=== PATIENT | female | born 1940 | race Caucasian/White ===

== ENCOUNTER 2019-01-25 08:08 | Inpatient (IN) ==
--- NOTE | 2019-01-24 09:06 | XRay Report ---
HISTORY: Preop for hernia repair FINDINGS: The lungs are clear. The heart, mediastinum, rogelio and pleura are normal. IMPRESSION: Normal chest. Interpreted and Authenticated by: Henri Fajardo 01/24/19
[2019-01-24 11:41] LABS: Basophils # (Auto) 0 K/mcL (0.0-0.3); Basophils % (Auto) 0.7 % (0.0-2.0); Eosinophils # (Auto) 0.5 K/mcL (0.0-0.7); Eosinophils % (Auto) 8.2 % (0.0-7.0); Granulocytes % (Auto) 55.1 % (38.0-78.0); Hematocrit 39.8 % (36.0-48.0); Hemoglobin 13.4 g/dL (12.0-15.0); Lymphocytes # (Auto) 1.8 K/mcL (1.5-4.8); Lymphocytes % (Auto) 29.3 % (15.5-49.0); Mean Corpuscular HGB Conc 33.7 g/dL (31.0-36.0); Mean Platelet Volume 8.8 fL (7.4-10.4); Monocytes # (Auto) 0.4 K/mcL (0.1-0.9); Monocytes % (Auto) 6.7 % (1.0-12.0); Platelet Count 360 K/mcL (140-440); RBC 4.38 M/mcL (4.00-5.20); Red Cell Distribution Width 14.4 % (11.5-14.5); WBC 6.1 K/mcL (4.5-11.0)
[2019-01-24 11:51] LABS: ALT/SGPT 38 U/l (0-40); AST/SGOT 27 U/l (0-37); Albumin/Globulin Ratio 1.1 (1.0-2.3); Alkaline Phosphatase 163 U/L (39-117); Bilirubin,Total 0.3 mg/dL (0.0-1.0); Blood Urea Nitrogen 14 mg/dl (8-23); Calcium 9.2 mg/dl (8.6-10.4); Carbon Dioxide 25 mmol/L (22-30); Chloride 104 mmol/L (96-108); Globulin 3.7 gm/dL (2.2-3.7); Glomerular Filtration Rate 54; Glucose 91 mg/dL (70-105)
[2019-01-24 12:42] LABS: INR 0.9 (0.9-1.1); Prothrombin Time 12.5 sec (11.9-14.5)
[~2019-01-25 08:08] MED LIST: IPRATROPIUM/ALBUTEROL 3 ML AMPUL.NEB NEB PRN; SCOPOLAMINE 1 PATCH PATCH TOPICAL PRN
[2019-01-25] MEDS ORDERED: LEVOFLOXACIN 750 MG/150 ML BAG IV SCH (08:30)
[2019-01-25] MEDS ORDERED: fentaNYL 250 MCG/5 ML VIAL IV ONE (11:10)
[2019-01-25] MEDS ORDERED: ROPIVACAINE HCL/PF 20 ML VIAL IJ ONE (11:10)
[2019-01-25] MEDS ORDERED: LIDOCAINE HCL/PF 100 MG/5 ML SYRINGE IV ONE (11:10)
[2019-01-25] MEDS ORDERED: KETAMINE 100 MG/ML ML IV ONE (11:10)
[2019-01-25] MEDS ORDERED: ROCURONIUM 10 MG/ML ML IV ONE (11:10)
[2019-01-25] MEDS ORDERED: EPINEPHrine 1 MG/10 ML (1:10,000) SYRINGE IV ONE (11:10)
[2019-01-25] MEDS ORDERED: DEXAMETHASONE 10 MG/ML VIAL IV ONE (11:10)
[2019-01-25] MEDS ORDERED: PHENYLEPHRINE 10 MG/ML VIAL IV ONE (11:10)
[2019-01-25] MEDS ORDERED: MAGNESIUM SULFATE 2 GM/50 ML BAG IV ONE ×2 (11:10→11:43)
[2019-01-25] MEDS ORDERED: ONDANSETRON 4 MG/2 ML VIAL IV ONE (11:10)
[2019-01-25] MEDS ORDERED: PROPOFOL 200 MG/20 ML VIAL IV ONE (11:10)
[2019-01-25] MEDS ORDERED: GLYCOPYRROLATE 0.2 MG/ML VIAL IV ONE (11:10)
[2019-01-25] MEDS ORDERED: MIDAZOLAM 2 MG/2 ML VIAL IV ONE (11:10)
[2019-01-25] MEDS ORDERED: VANCOMYCIN 1,000 MG in 0.9 % SODIUM CHLORIDE 250 ML IV ONE (11:30)
[2019-01-25] MEDS ORDERED: BACITRACIN 50,000 UNIT VIAL IR ONE (11:43)
[2019-01-25] MEDS ORDERED: ACETAMINOPHEN 1,000 MG/100 ML BOTTLE IV ONE (12:55)
[2019-01-25] MEDS ORDERED: LACTATED RINGERS 250 ML IV PRN (12:55)
[2019-01-25] MEDS ORDERED: ONDANSETRON 4 MG/2 ML VIAL IV PRN (12:55)
[2019-01-25] MEDS ORDERED: IPRATROPIUM/ALBUTEROL 3 ML AMPUL.NEB NEB PRN (12:55)
[2019-01-25] MEDS ORDERED: HYDROmorphone 2 MG/ML VIAL IV PRN (12:55)
[2019-01-25] MEDS ORDERED: MEPERIDINE 25 MG/ML SYRINGE IV PRN (12:55)
[2019-01-25] MEDS ORDERED: PROMETHAZINE 25 MG/ML VIAL IV PRN ×2 (12:55→15:46)
[2019-01-25] MEDS ORDERED: BENZOCAINE/MENTHOL 1 LOZENGE PO PRN (12:55)
[2019-01-25] MEDS ORDERED: METHOCARBAMOL 1,000 MG/10 ML VIAL IV PRN (12:55)
[2019-01-25] MEDS ORDERED: LACTATED RINGERS 1,000 ML IV SCH (13:00)
--- NOTE | 2019-01-25 14:37 | Brief Operative Note ---
Date of procedure: 01/25/19 Pre-op diagnosis: major incisional hernia Post-op diagnosis: other (incisional hernia from xyphoid to pubis) Procedure: incisional hernia repair with mesh graft ,major; covering entire anterior abdominal wall bilateral separation of components from costal margin to iliac crest extensive lysis of adhesions Grafts/Implants: Yes (surgimesh ;[id number]) Anesthesia: GETA Findings: major adhesions of entire peritoneal cavity 16cm transverse fascial defect extending from xyphoid to pubis marked retraction of midline fascia bilaterally Complications: none Surgeon: Lin Medrano Estimated blood loss (cc): 100 Specimens Removed/Pathology: none sent Condition: stable Disposition: PACU
[2019-01-25] MEDS: fentaNYL 100 MCG/2 ML VIAL IV PRN ×3 (14:58→15:09)
[2019-01-25] MEDS ORDERED: ACETAMINOPHEN 1,000 MG in PREMIX 1 BAG IV SCH (15:46)
[2019-01-25] MEDS ORDERED: ACETAMINOPHEN 1,000 MG/100 ML BOTTLE IV PRN (15:49)
[2019-01-25] MEDS: 0.9 % SODIUM CHLORIDE 1,000 ML IV SCH (15:57)
[2019-01-25] MEDS: HYDROmorphone 2 MG/ML VIAL IV PRN ×2 (16:01→18:00)
[2019-01-25] MEDS: NICOTINE 21 MG PATCH TOPICAL SCH (17:38)
[2019-01-25] MEDS: METOCLOPRAMIDE 10 MG/2 ML VIAL IV SCH (17:38)
[2019-01-25] MEDS: ACETAMINOPHEN 1,000 MG/100 ML BOTTLE IV SCH (20:45)
[2019-01-25] MEDS: VANCOMYCIN 1,000 MG in 0.9 % SODIUM CHLORIDE 250 ML IV SCH (21:18)
[2019-01-25] MEDS: 0.9 % SODIUM CHLORIDE 10 ML SYRINGE IV SCH (21:22)
[2019-01-26] MEDS: HYDROmorphone 2 MG/ML VIAL IV PRN ×7 (01:41→22:38)
[2019-01-26] MEDS: LORazepam 2 MG/ML VIAL IV PRN ×2 (01:45→19:25)
[2019-01-26] MEDS: ACETAMINOPHEN 1,000 MG/100 ML BOTTLE IV SCH ×2 (02:31→11:05)
[2019-01-26] MEDS: 0.9 % SODIUM CHLORIDE 1,000 ML IV SCH ×4 (02:32→23:29)
[2019-01-26] MEDS: METOCLOPRAMIDE 10 MG/2 ML VIAL IV SCH ×5 (05:54→23:30)
[2019-01-26] MEDS: 0.9 % SODIUM CHLORIDE 10 ML SYRINGE IV SCH ×3 (05:59→20:15)
[2019-01-26] MEDS: LEVOFLOXACIN 750 MG/150 ML BAG IV SCH (09:35)
[2019-01-26] MEDS: NICOTINE 21 MG PATCH TOPICAL SCH (10:05)
[2019-01-26] MEDS ORDERED: IPRATROPIUM/ALBUTEROL 3 ML AMPUL.NEB NEB PRN (11:41)
[2019-01-26] MEDS: VANCOMYCIN 1,000 MG in 0.9 % SODIUM CHLORIDE 250 ML IV SCH ×2 (12:06→20:10)
--- NOTE | 2019-01-26 12:32 | General Surgery Progress Note ---
Subjective Patient reports: feels better, still having pain, shortness of breath, afebrile Narrative: Note initiated : 01/26/19 at 12:24 pm Service Date, if different from initiated Date: [] Patient: Jennifer Gama 78 y/o F admitted on 01/25/19 for Incisional Hernia Repair, Bilateral Seperation of . Chief Complaint: [patient is stable he still has a moderate amount of pain. He still has ineffective inspirations and a nonproductive cough. Oxygen saturations are greater than 93% on room air. Discussed his situation with the radiologist. He will do a ultrasound-guided thoracentesis to remove as much non-clotted blood as possible. Her drainage from her JPs is 260 cc.] Objective Temp Pulse Resp BP Pulse Ox 98.1 F 95 H 16 174/85 92 01/26/19 08:00 01/26/19 08:30 01/26/19 08:30 01/26/19 08:00 01/26/19 08:30 - Additional Data Intake & Output - Last 24 hours: Intake & Output 01/24/19 01/25/19 01/26/19 01/27/19 05:59 05:59 05:59 05:59 Intake Total 3900 250 Output Total 955 Balance 2945 250 Weight 202 lb 3.2 oz 210 lb - General physical appearance moderate distress, moderate pain - Eyes PERRL, normal ocular movement - ENT normal pinna, normal nares, normal mucosa, no hearing loss, no congestion - Neck no masses, no bruits, trachea midline, no lymphadenopathy, no venous distension - Respiratory normal respiratory effort, clear to auscultation, other (moderate splinting bilaterally) - Cardiovascular Cardiovascular exam: Present: normal rate and rhythm, RRR, +S1, +S2. Absent: JVD, tachycardia - Abdomen tender, surgical scars (incision looks good has good viability; DAYNE drainage is s erosanguineous; she has good active bowel sounds) - Integumentary no rash, no growths, no abnormal pigmentation - Neurologic normal coordination, normal sensation - Psychiatric oriented to time, oriented to person, oriented to place, speech is normal, memory intact - Labs 01/24/19 08:03 01/24/19 08:03 Assessment and Plan (1) Incisional hernia Status: Acute Assessment and plan: Check morning labs His monitor blood pressure closely and start medication if needed Probably will start Lovenox tomorrow Current Visit: Yes (2) COPD (chronic obstructive pulmonary disease) Status: Chronic Current Visit: No (3) Obesity (BMI 30.0-34.9) Status: Chronic Current Visit: No (4) Major depressive disorder, recurrent severe without psychotic features Status: Chronic Current Visit: No - Time Spent With Patient Total time spent is greater than 50% in coordination of care (as documented) at patient's floor/unit and/or counseling patient:
[2019-01-26 13:36] LABS: Basophils # (Auto) 0 K/mcL (0.0-0.3); Basophils % (Auto) 0.3 % (0.0-2.0); Eosinophils # (Auto) 0 K/mcL (0.0-0.7); Eosinophils % (Auto) 0 % (0.0-7.0); Granulocytes % (Auto) 84.8 % (38.0-78.0); Hematocrit 39.8 % (36.0-48.0); Hemoglobin 13.4 g/dL (12.0-15.0); Lymphocytes % (Auto) 8.3 % (15.5-49.0); Mean Cell Volume 91.8 fL (80.0-100.0); Mean Corpuscular HGB Conc 33.6 g/dL (31.0-36.0); Mean Platelet Volume 8.2 fL (7.4-10.4); Monocytes # (Auto) 0.8 K/mcL (0.1-0.9); Monocytes % (Auto) 6.6 % (1.0-12.0); Platelet Count 314 K/mcL (140-440); RBC 4.33 M/mcL (4.00-5.20); Red Cell Distribution Width 14.5 % (11.5-14.5); WBC 11.9 K/mcL (4.5-11.0)
[2019-01-26 14:35] LABS: ALT/SGPT 111 U/l (0-40); AST/SGOT 88 U/l (0-37); Albumin 3.5 gm/dL (3.2-5.2); Albumin/Globulin Ratio 1.1 (1.0-2.3); Alkaline Phosphatase 247 U/L (39-117); Bilirubin,Direct 0.9 mg/dL (0.0-0.3); Bilirubin,Total 1.3 mg/dL (0.0-1.0); Blood Urea Nitrogen 12 mg/dl (8-23); Calcium 8.6 mg/dl (8.6-10.4); Carbon Dioxide 22 mmol/L (22-30); Chloride 107 mmol/L (96-108); Globulin 3.3 gm/dL (2.2-3.7); Glomerular Filtration Rate 83; Glucose 106 mg/dL (70-105); Lactate Dehydrogenase 270 U/L (94-250); Phosphorous 2.9 mg/dL (2.7-4.5); Triglycerides 56 mg/dl (<150); Uric Acid 4.4 mg/dL (2.5-8.0)
[2019-01-26] MEDS ORDERED: METOPROLOL TARTRATE 5 MG/5 ML VIAL IV ONE (20:06)
[2019-01-26] MEDS: busPIRone 5 MG TABLET PO SCH (20:07)
[2019-01-26] MEDS: MIRTAZAPINE 15 MG TABLET PO SCH (20:07)
[2019-01-26] MEDS: DULoxetine 30 MG CAPSULE PO SCH (20:07)
[2019-01-26] MEDS: METOPROLOL TARTRATE 5 MG/5 ML VIAL IV PRN (20:14)
[2019-01-26] MEDS: FLUTICASONE/SALMETEROL 500/50 INHALER #14 INH SCH (20:15)
[2019-01-27] MEDS: HYDROmorphone 2 MG/ML VIAL IV PRN ×8 (00:58→22:55)
[2019-01-27] MEDS: LORazepam 2 MG/ML VIAL IV PRN (02:57)
[2019-01-27] MEDS: METOPROLOL TARTRATE 5 MG/5 ML VIAL IV PRN (02:57)
[2019-01-27 05:44] LABS: Basophils # (Auto) 0 K/mcL (0.0-0.3); Basophils % (Auto) 0.4 % (0.0-2.0); Eosinophils # (Auto) 0.1 K/mcL (0.0-0.7); Eosinophils % (Auto) 0.7 % (0.0-7.0); Granulocytes % (Auto) 79.9 % (38.0-78.0); Hematocrit 38.2 % (36.0-48.0); Hemoglobin 12.9 g/dL (12.0-15.0); Lymphocytes # (Auto) 1.5 K/mcL (1.5-4.8); Lymphocytes % (Auto) 12.6 % (15.5-49.0); Mean Corpuscular HGB Conc 33.7 g/dL (31.0-36.0); Mean Platelet Volume 8.3 fL (7.4-10.4); Monocytes # (Auto) 0.7 K/mcL (0.1-0.9); Monocytes % (Auto) 6.4 % (1.0-12.0); Platelet Count 341 K/mcL (140-440); RBC 4.06 M/mcL (4.00-5.20); Red Cell Distribution Width 14.5 % (11.5-14.5); WBC 11.6 K/mcL (4.5-11.0)
[2019-01-27] MEDS: METOCLOPRAMIDE 10 MG/2 ML VIAL IV SCH ×4 (05:55→23:13)
[2019-01-27] MEDS: 0.9 % SODIUM CHLORIDE 10 ML SYRINGE IV SCH ×3 (05:56→21:48)
[2019-01-27] MEDS ORDERED: LEVOTHYROXINE 50 MCG TABLET PO SCH (07:30)
[2019-01-27] MEDS: 0.9 % SODIUM CHLORIDE 1,000 ML IV SCH ×3 (08:00→23:43)
[2019-01-27] MEDS: DULoxetine 30 MG CAPSULE PO SCH ×2 (09:00→19:35)
[2019-01-27] MEDS ORDERED: ALPRAZolam 0.5 MG TABLET PO SCH (09:00)
[2019-01-27] MEDS: busPIRone 5 MG TABLET PO SCH ×2 (09:00→19:35)
[2019-01-27] MEDS: FLUTICASONE/SALMETEROL 500/50 INHALER #14 INH SCH ×2 (09:03→22:10)
[2019-01-27] MEDS: VANCOMYCIN 1,000 MG in 0.9 % SODIUM CHLORIDE 250 ML IV SCH ×2 (09:05→19:35)
[2019-01-27] MEDS: ENOXAPARIN 40 MG/0.4 ML SYRINGE SQ SCH ×2 (09:11→19:35)
[2019-01-27] MEDS: NICOTINE 21 MG PATCH TOPICAL SCH (09:17)
[2019-01-27] MEDS: LEVOFLOXACIN 750 MG/150 ML BAG IV SCH (10:54)
--- NOTE | 2019-01-27 12:00 | General Surgery Progress Note ---
Subjective Patient reports: feels better, pain is less, flatus, no bowel movement, nausea, afebrile Narrative: Note initiated : 01/27/19 at 11:57 am Service Date, if different from initiated Date: [] Patient: Jennifer Gama 78 y/o F admitted on 01/25/19 for Incisional Hernia Repair, Bilateral Seperation of . Chief Complaint: [patient feels. She still has episodes of nausea. She has had flatus. She is afebrile. White blood count 11.6, hemoglobin 12.9.] Objective Temp Pulse Resp BP Pulse Ox 98 F 98 H 20 156/80 93 01/27/19 07:20 01/27/19 08:00 01/27/19 08:00 01/27/19 07:20 01/27/19 08:00 - Additional Data Intake & Output - Last 24 hours: Intake & Output 01/25/19 01/26/19 01/27/19 01/28/19 05:59 05:59 05:59 05:59 Intake Total 3900 3230 1350 Output Total 955 1700 Balance 2945 1530 1350 Weight 202 lb 3.2 oz 210 lb 205 lb 12.8 oz - General physical appearance well developed, well nourished, no distress, moderate pain - Eyes PERRL, normal ocular movement - ENT normal pinna, normal nares, normal mucosa, no hearing loss, no congestion - Neck no masses, no bruits, trachea midline, no lymphadenopathy, no venous distension - Respiratory normal expansion, normal respiratory effort, clear to auscultation - Cardiovascular Cardiovascular exam: Present: normal rate and rhythm, RRR, +S1, +S2. Absent: JVD, tachycardia - Abdomen soft, tender (mild incisional tenderness; active bowel sounds; mild distention; DAYNE drainage is decreasing and is more serous) - Integumentary no rash, no growths, no abnormal pigmentation - Neurologic normal coordination, normal sensation - Psychiatric oriented to time, oriented to person, oriented to place, speech is normal, memory intact - Labs 01/27/19 04:05 01/26/19 12:30 Diabetes panel 01/26/19 Range/Units 12:30 Sodium 138 (133-145) mmol/L Potassium 4.3 (3.3-5.1) mmol/L Chloride 107 (96-108) mmol/L Carbon Dioxide 22 (22-30) mmol/L BUN 12 (8-23) mg/dl Creatinine 0.7 (0.6-1.1) mg/dl Glucose 106 H (70-105) mg/dL Calcium 8.6 (8.6-10.4) mg/dl AST 88 H (0-37) U/l ALT 111 H (0-40) U/l Alkaline Phosphatase 247 H (39-117) U/L Total Protein 6.8 (5.9-8.4) gm/dL Albumin 3.5 (3.2-5.2) gm/dL Triglycerides 56 (<150) mg/dl Calcium panel 01/26/19 Range/Units 12:30 Calcium 8.6 (8.6-10.4) mg/dl Phosphorus 2.9 (2.7-4.5) mg/dL Albumin 3.5 (3.2-5.2) gm/dL Pituitary panel 01/26/19 Range/Units 12:30 Sodium 138 (133-145) mmol/L Potassium 4.3 (3.3-5.1) mmol/L Chloride 107 (96-108) mmol/L Carbon Dioxide 22 (22-30) mmol/L BUN 12 (8-23) mg/dl Creatinine 0.7 (0.6-1.1) mg/dl Glucose 106 H (70-105) mg/dL Calcium 8.6 (8.6-10.4) mg/dl Adrenal panel 01/26/19 Range/Units 12:30 Sodium 138 (133-145) mmol/L Potassium 4.3 (3.3-5.1) mmol/L Chloride 107 (96-108) mmol/L Carbon Dioxide 22 (22-30) mmol/L BUN 12 (8-23) mg/dl Creatinine 0.7 (0.6-1.1) mg/dl Glucose 106 H (70-105) mg/dL Calcium 8.6 (8.6-10.4) mg/dl Total Bilirubin 1.3 H (0.0-1.0) mg/dL AST 88 H (0-37) U/l ALT 111 H (0-40) U/l Alkaline Phosphatase 247 H (39-117) U/L Total Protein 6.8 (5.9-8.4) gm/dL Albumin 3.5 (3.2-5.2) gm/dL Assessment and Plan (1) Incisional hernia Status: Acute Assessment and plan: Decrease IV to 50 cc/h Delay advancing diet until she has more intestinal activity Current Visit: Yes (2) COPD (chronic obstructive pulmonary disease) Status: Chronic Current Visit: No (3) Obesity (BMI 30.0-34.9) Status: Chronic Current Visit: No (4) Major depressive disorder, recurrent severe without psychotic features Status: Chronic Current Visit: No - Time Spent With Patient Total time spent is greater than 50% in coordination of care (as documented) at patient's floor/unit and/or counseling patient:
[2019-01-27] MEDS ORDERED: 0.9 % SODIUM CHLORIDE 250 ML IV SCH (12:15)
[2019-01-27] MEDS: MIRTAZAPINE 15 MG TABLET PO SCH (19:35)
[2019-01-28] MEDS ORDERED: FUROSEMIDE 20 MG/2 ML VIAL IV STA ×2 (02:56→03:45)
[2019-01-28] MEDS ORDERED: FUROSEMIDE 20 MG/2 ML VIAL IV ONE (02:56)
[2019-01-28 03:15] LABS: Basophils # (Auto) 0 K/mcL (0.0-0.3); Basophils % (Auto) 0.2 % (0.0-2.0); Eosinophils # (Auto) 0.2 K/mcL (0.0-0.7); Eosinophils % (Auto) 1.1 % (0.0-7.0); Granulocytes % (Auto) 74.9 % (38.0-78.0); Hematocrit 44.8 % (36.0-48.0); Hemoglobin 14.6 g/dL (12.0-15.0); Lymphocytes % (Auto) 22.7 % (15.5-49.0); Mean Cell Volume 92.4 fL (80.0-100.0); Mean Corpuscular HGB Conc 32.6 g/dL (31.0-36.0); Mean Platelet Volume 8.4 fL (7.4-10.4); Monocytes # (Auto) 0.2 K/mcL (0.1-0.9); Monocytes % (Auto) 1.1 % (1.0-12.0); Platelet Count 442 K/mcL (140-440); RBC 4.85 M/mcL (4.00-5.20); Red Cell Distribution Width 14.6 % (11.5-14.5); WBC 17.7 K/mcL (4.5-11.0)
[2019-01-28 03:38] LABS: ALT/SGPT 85 U/l (0-40); AST/SGOT 67 U/l (0-37); Albumin 3.5 gm/dL (3.2-5.2); Albumin/Globulin Ratio 0.9 (1.0-2.3); Alkaline Phosphatase 371 U/L (39-117); Bilirubin,Total 1.2 mg/dL (0.0-1.0); Blood Urea Nitrogen 15 mg/dl (8-23); Calcium 9.1 mg/dl (8.6-10.4); Carbon Dioxide 20 mmol/L (22-30); Chloride 105 mmol/L (96-108); Glomerular Filtration Rate 61; Glucose 123 mg/dL (70-105)
[2019-01-28] MEDS ORDERED: HEPARIN/NS 500 ML IV ONE (03:44)
[2019-01-28] MEDS ORDERED: LORazepam 2 MG/ML VIAL IV PRN (03:45)
[2019-01-28] MEDS ORDERED: METOPROLOL TARTRATE 5 MG/5 ML VIAL IV PRN (03:45)
[2019-01-28] MEDS ORDERED: IPRATROPIUM/ALBUTEROL 3 ML AMPUL.NEB NEB PRN (03:45)
[2019-01-28] MEDS ORDERED: PROMETHAZINE 25 MG/ML VIAL IV PRN (03:45)
[2019-01-28] MEDS ORDERED: FUROSEMIDE 40 MG/4 ML VIAL IV ONE ×3 (03:45→11:00)
[2019-01-28] MEDS ORDERED: PROPOFOL 100 ML IV ONE (04:12)
[2019-01-28] MEDS ORDERED: HEPARIN/NS 500 ML IV SCH (04:15)
[2019-01-28] MEDS ORDERED: PROPOFOL 100 ML IV SCH (04:15)
--- NOTE | 2019-01-28 04:29 | Procedure Note ---
Procedures - Arterial Line Consent obtained: written consent Time out performed: Yes Size (Gauge): 20 Technique used: guide wire technique Post-Procedure: dry sterile dressing placed, easily flushed, waveform correlation Patient tolerated procedure: well Complications: none - Intubation Sedative: other (propofol) Mg given: 100 Paralytic: Succinylcholine ETT: ETCO2, BBS Laryngoscope: 1 Assist device used: glide Vocal Cord View: 1 ET tube size: 7 ET tube uncuffed: No Tube secured depth (cm): 22 Tube secured location: lips Tube placement confirmation: visualized tube passing through cords, equal breath sounds bilaterally, no breath sounds over epigastrium, confirmation by capnometry Patient tolerated procedure: well Intubation complications: none
[2019-01-28] MEDS ORDERED: 0.9 % SODIUM CHLORIDE 250 ML IV SCH (04:30)
--- NOTE | 2019-01-28 04:33 | Internal Medicine Consult Note ---
Medical - CN: [facility] - Data of Consult Consult date: 01/28/19 Primary Care Provider: Shane Portillo - Consult Narrative History of present illness: Ms. Gama is a 78 year old F On the for repair of major incisional hernia with the subsequent repair and lysis of extensive abdominal adhesions. Hospital course remarkable for anxiety with a history of the same, she had episodes of hypertension since surgery. Early on the patient came somewhat agitated and while nurse was obtaining as needed anxiolytic and pain medication patient heard calling out for help and reported being short of breath. No specific complaints of any chest pain. She appeared diaphoretic cool and clammy respiratory rate of 30 and O2 sat of 75% on 3 L of oxygen. Code white initiated. Dr. Medrano contacted, subsequently anesthesia. ABG with pH of 7.1 and a CO2 of 72 with an PaO2 of 49. Patient was intubated anesthesia. She did become hypotensive post procedure with subsequent hypertension and drop in blood pressure again. Chest x-ray with pulmonary edema. Positive fluid balance and increased weight. Preop echo no significant abnormalities. EKG with some depression in the v5-v6 somewhat more pronounced than previous EKG. Per discussion with family members she has no history of heart failure or CAD. Her blood pressures are okay at home but her heart rate typically runs between 80-100 significant anxiety. She does not wear any home oxygen for her COPD. She does use a CPAP machine at night for obstructive sleep apnea. Colon cancer several years ago had surgery and subsequent PE. She was on warfarin for what sounds to be about a year. Unable to obtain review of systems given patient's sedation CC: Lin Medrano MD Medical - CN: [facility] Medical history: Medical History (Last Reviewed 12/29/18 @ 08:06 by Elizabeth Barreto [facility]) Colon cancer (Chronic) Gastroenteritis (Acute) Acute exacerbation of chronic obstructive airways disease (Acute) Asthma with exacerbation (Acute) Major depressive disorder, recurrent severe without psychotic features (Chronic) Generalized anxiety disorder (Chronic) Panic disorder (Chronic) Dysthymia (Chronic) Fatigue (Chronic) Sleep apnea (Chronic) Hypothyroidism (Chronic) Chronic asthma (Chronic) COPD (chronic obstructive pulmonary disease) (Chronic) Benign brain tumor (Chronic) Chronic anticoagulation (Chronic) PE (pulmonary thromboembolism) (Chronic) Past Surgical History (Last Reviewed 12/29/18 @ 08:06 by Elizabeth Barreto CMA) History of cholecystectomy (Chronic) History of ear surgery (Chronic) History of surgery (Chronic 2005) History of tonsillectomy and adenoidectomy (Chronic) Family History (Last Reviewed 12/29/18 @ 08:06 by Elizabeth Barreto CMA) Mother Congestive heart failure Arthritis Depression Father Diabetes mellitus Amputation leg, bilat Sister Heart attack Arthritis Medical - CN: Meds Home Medications Medication Instructions Recorded Confirmed Type albuterol sulfate 90 mcg/actuation 1 puff INHALATION Q6H PRN #18 g 08/24/17 Rx aerosol inhaler ipratropium-albuterol 0.5 mg-3 3 ml INHALATION Q6HP PRN #30 08/30/17 01/25/19 Rx mg(2.5 mg base)/3 mL nebulization ampul.neb soln alprazolam 1 mg tablet 1 mg PO DAILY #90 tab 08/15/18 01/25/19 Rx aripiprazole 2 mg tablet 1 mg PO QHS #90 tab 10/04/18 01/25/19 Rx fluticasone 500 mcg-salmeterol 50 1 inh INHALATION BID #60 each 11/29/18 01/25/19 Rx mcg/dose blistr powdr for inhalation buspirone 5 mg tablet 2.5 mg PO BID #90 tab 12/05/18 01/25/19 Rx duloxetine 30 mg capsule,delayed 30 mg PO BID #180 cap 12/13/18 01/25/19 Rx release mirtazapine 30 mg tablet 15 mg PO QHS #30 tab 01/05/19 01/25/19 Rx Levothyroxine Sodium [Synthroid] 50 mcg PO DAILY 01/24/19 01/25/19 History Nicotine Polacrilex [Nicorette] 2 mg BC DAILY 01/24/19 01/25/19 History Allergies Allergy/AdvReac Type Severity Reaction Status Date / Time morphine AdvReac Severe Hallucinati Verified 01/27/19 10:16 ng carbamazepine [From Tegretol] AdvReac Mild Itching Verified 01/24/19 08:11 phenytoin [From Dilantin] AdvReac Mild Itching Verified 01/24/19 08:11 Medical - CN: Exam - Constitutional Vitals: Temp Pulse Resp BP Pulse Ox 98.3 F 107 H 20 195/84 92 01/27/19 22:52 01/27/19 22:52 01/27/19 22:52 01/27/19 22:52 01/27/19 22:52 Exam: General: Sedated and ventilated, no acute Distress Eyes/N/T: Pupils pinpoint and equal and sluggish Head/Neck: neck supple, normocephalic atraumatic CV: Mildly tacky but regular, No murmurs, normal s1/s2 Pulm: Mild b/l rhonchi, occasional wheeze Abd: soft, nontender, +BS x4 Ext: no clubbing/cyanosis, 1+ b/l LE edema Neuro: Sedated including paralytic given and intubated, unable to gather thorough neuro exam Skin: warm/dry Medical - CN: Result - Labs CBC & Chem 7: 01/28/19 02:50 01/28/19 02:50 Labs: Short CBC 01/27/19 01/28/19 Range/Units 04:05 02:50 WBC 11.6 H 17.7 H (4.5-11.0) K/mcL Hgb 12.9 14.6 (12.0-15.0) g/dL Hct 38.2 44.8 (36.0-48.0) % Plt Count 341 442 H (140-440) K/mcL BMP 01/28/19 02:50 Sodium 139 Potassium 4.3 Chloride 105 Carbon Dioxide 20 L BUN 15 Creatinine 0.9 Glucose 123 H Calcium 9.1 Liver Function 01/28/19 Range/Units 02:50 Total Bilirubin 1.2 H (0.0-1.0) mg/dL AST 67 H (0-37) U/l ALT 85 H (0-40) U/l Alkaline Phosphatase 371 H (39-117) U/L Albumin 3.5 (3.2-5.2) gm/dL - Impressions Chest x-ray with pulmonary edema. ABG with respiratory acidosis and hypoxia Medical - CN: A/P - Narrative A/P Narrative: A: *Acute hypoxic/hypercapnic respiratory failure: in setting of underlying COPD & KANU with volume overload. consider aspiration/PNA vs ARDS -EKG with some ST depression v5-6 more pronounced than prior EKG, Trop negative *Volume overload: pt up 3kg weight but i/o's show 5kg net -Preop echo with no significant abnormalities -elevated BNP *Hypotension: post RSI and then again with propofol *HTN post-op: likely 2/2 pain/anxiety and could be contributor to pulmonary ed jair *COPD (not on home oxygen): *KANU with CPAP: *Obesity: *Anxiety with panic attacks/depression: *Heart rate at home per family runs 80-100 *h/o colon cancer with subsequent surgery and postoperative PE: Was on warfarin for a year *Incisional hernia: Status post repair with lysis of adhesions (01/25) * P: -vent mngmt -f/u CXR -IV lasix -wean off levophed -i/o's, weights -israel/prn nebs -cont abx levaquin/vanco per surg -check man diff and PCT -f/u EKG -may need repeat echo -ppx: lovenox/h2
--- NOTE | 2019-01-28 04:36 | General Surgery Progress Note ---
Subjective Patient reports: other Narrative: Note initiated : 01/28/19 at 4:34 am Service Date, if different from initiated Date: [] Patient: Jennifer Gama 78 y/o F admitted on 01/25/19 for Incisional Hernia Repair, Bilateral Seperation of . Chief Complaint: [patient developed acute respiratory distress about 2 hours ago. I was contacted home and came in emergently. She is having extreme shortness of breath with labored respirations. She is agitated, diaphoretic, and hypoxic with oxygen saturations about 80% on nonrebreather mask. Patient is felt to be in significant respiratory failure with combination of exacerbation of COPD as well as pulmonary edema. Chest x-ray confirmed pulmonary edema. She will be transferred to the ICU and intubated emergently for ventilatory support. Cardiac enzymes will also be ordered. Objective Temp Pulse Resp BP Pulse Ox 98.3 F 107 H 20 195/84 92 01/27/19 22:52 01/27/19 22:52 01/27/19 22:52 01/27/19 22:52 01/27/19 22:52 - Additional Data Intake & Output - Last 24 hours: Intake & Output 01/25/19 01/26/19 01/27/19 01/28/19 05:59 05:59 05:59 05:59 Intake Total 3900 3230 1950 Output Total 955 1700 1010 Balance 2945 1530 940 Weight 202 lb 3.2 oz 210 lb 205 lb 12.8 oz 208 lb - General physical appearance severe distress - Eyes PERRL, normal ocular movement - Respiratory other (poor ventilation bilaterally with coarse wheezes and coarse tubular breath sounds with wet rales bilaterally; mild retraction of intercostal noted) - Cardiovascular Cardiovascular exam: Present: tachycardia ( heart rate 150 blood pressure 220/110) - Abdomen tender (mild abdominal tenderness with moderate distention; hypoactive bowel sounds) - Neurologic disoriented, confused - Labs 01/29/19 04:22 02/01/19 04:40 Diabetes panel 01/28/19 Range/Units 02:50 Sodium 139 (133-145) mmol/L Potassium 4.3 (3.3-5.1) mmol/L Chloride 105 (96-108) mmol/L Carbon Dioxide 20 L (22-30) mmol/L BUN 15 (8-23) mg/dl Creatinine 0.9 (0.6-1.1) mg/dl Glucose 123 H (70-105) mg/dL Calcium 9.1 (8.6-10.4) mg/dl AST 67 H (0-37) U/l ALT 85 H (0-40) U/l Alkaline Phosphatase 371 H (39-117) U/L Total Protein 7.5 (5.9-8.4) gm/dL Albumin 3.5 (3.2-5.2) gm/dL Calcium panel 01/28/19 Range/Units 02:50 Calcium 9.1 (8.6-10.4) mg/dl Albumin 3.5 (3.2-5.2) gm/dL Pituitary panel 01/28/19 Range/Units 02:50 Sodium 139 (133-145) mmol/L Potassium 4.3 (3.3-5.1) mmol/L Chloride 105 (96-108) mmol/L Carbon Dioxide 20 L (22-30) mmol/L BUN 15 (8-23) mg/dl Creatinine 0.9 (0.6-1.1) mg/dl Glucose 123 H (70-105) mg/dL Calcium 9.1 (8.6-10.4) mg/dl Adrenal panel 01/28/19 Range/Units 02:50 Sodium 139 (133-145) mmol/L Potassium 4.3 (3.3-5.1) mmol/L Chloride 105 (96-108) mmol/L Carbon Dioxide 20 L (22-30) mmol/L BUN 15 (8-23) mg/dl Creatinine 0.9 (0.6-1.1) mg/dl Glucose 123 H (70-105) mg/dL Calcium 9.1 (8.6-10.4) mg/dl Total Bilirubin 1.2 H (0.0-1.0) mg/dL AST 67 H (0-37) U/l ALT 85 H (0-40) U/l Alkaline Phosphatase 371 H (39-117) U/L Total Protein 7.5 (5.9-8.4) gm/dL Albumin 3.5 (3.2-5.2) gm/dL Assessment and Plan (1) Incisional hernia Status: Acute Assessment and plan: Decrease IV to 50 cc/h Delay advancing diet until she has more intestinal activity Current Visit: Yes (2) COPD (chronic obstructive pulmonary disease) Status: Chronic Current Visit: No (3) Obesity (BMI 30.0-34.9) Status: Chronic Current Visit: No (4) Major depressive disorder, recurrent severe without psychotic features Status: Chronic Current Visit: No (5) Acute exacerbation of chronic obstructive airways disease Status: Acute Assessment and plan: transfer to icu for intubation lasix 20 mg IV stat stat CXR DUONEB Q6H CXR IN A.M. TROPONIN STAT ECG STAT HOSPITALIST CONSULT Current Visit: No - Time Spent With Patient Total time spent is greater than 50% in coordination of care (as documented) at patient's floor/unit and/or counseling patient:
[2019-01-28] MEDS ORDERED: NOREPINEPHRINE BITARTRATE 4 MG/4 ML VIAL IV ONE (05:06)
[2019-01-28 05:51] LABS: Band Neutrophils % 2 % (0-10); Lymphocytes % 23 % (15-49); Monocytes % (Manual) 4 % (1-12); Platelet Estimate INCREASED (NORMAL); RBC Morphology NORMAL (NORMAL); Segmented Neutrophils % 71 % (38-78)
[2019-01-28] MEDS: NOREPINEPHRINE BITARTRATE 16 MG in 0.9 % SODIUM CHLORIDE 234 ML IV SCH (05:55)
[2019-01-28] MEDS: 0.9 % SODIUM CHLORIDE 1,000 ML IV SCH ×4 (06:53→22:41)
[2019-01-28] MEDS: 0.9 % SODIUM CHLORIDE 10 ML SYRINGE IV SCH ×3 (06:56→23:24)
[2019-01-28] MEDS ORDERED: IPRATROPIUM/ALBUTEROL 3 ML AMPUL.NEB NEB ONE (07:01)
[2019-01-28] MEDS ORDERED: BUDESONIDE 0.5 MG/2 ML AMPUL.NEB NEB ONE (07:01)
[2019-01-28] MEDS: IPRATROPIUM/ALBUTEROL 3 ML AMPUL.NEB NEB SCH ×3 (07:02→19:46)
[2019-01-28] MEDS: BUDESONIDE 0.5 MG/2 ML AMPUL.NEB NEB SCH ×2 (07:03→19:46)
[2019-01-28] MEDS ORDERED: METOCLOPRAMIDE 10 MG/2 ML VIAL ONE (07:09)
[2019-01-28] MEDS: METOCLOPRAMIDE 10 MG/2 ML VIAL IV SCH ×3 (07:18→18:28)
[2019-01-28] MEDS: PROPOFOL 1,000 MG in PREMIX 1 BAG IV SCH (07:26)
[2019-01-28] MEDS ORDERED: LEVOTHYROXINE 50 MCG TABLET PO SCH (07:30)
[2019-01-28] MEDS ORDERED: ESOMEPRAZOLE 40 MG VIAL IV SCH (07:30)
--- NOTE | 2019-01-28 08:56 | XRay Report ---
HISTORY: Short of breath FINDINGS: There is a severe diffuse widespread alveolar infiltrate throughout the right lung with the greatest consolidation in the upper two thirds. There is moderate generalized alveolar infiltrate throughout the left lung. There is relative sparing of the right base. These are new finding since 01/24/19. Heart size is within normal limits but larger today than it was previously. Some of the apparent cardiomegaly is due to portable technique. There is no pleural effusion. No mass is seen. There are multiple overlying artifacts. IMPRESSION: New onset severe widespread bilateral alveolar opacities. This could be pulmonary edema, drug or transfusion reaction, severe aspiration or pneumonia Interpreted and Authenticated by: Henri Fajardo 01/28/19
--- NOTE | 2019-01-28 08:58 | XRay Report ---
HISTORY: Intubated Endotracheal tube has been inserted. The tip is approximately 6 cm above the mook. There is no pneumothorax or widening of the mediastinum. Patient still has widespread bilateral alveolar infiltrates with the greatest involvement in the upper two thirds of the right lung. The infiltrates are less severe than they were at 2:49 AM. The lung volumes are now larger following intubation. The heart size appears normal. IMPRESSION: No complication following intubation. Widespread alveolar infiltrates which are less severe Interpreted and Authenticated by: Henri Fajardo 01/28/19
[2019-01-28] MEDS ORDERED: FLUTICASONE/SALMETEROL 500/50 INHALER #14 INH SCH (09:00)
--- NOTE | 2019-01-28 09:00 | XRay Report ---
HISTORY: Nasogastric tube insertion. FINDINGS: The study is performed at 5:09 AM. Endotracheal tube is 5 cm above the mook. A nasogastric tube passes through the esophagus into the upper fundus of the stomach. Patient still has widespread alveolar infiltrates, right worse than left. There is no widening of the mediastinum, pleural effusion or pneumothorax. The right costophrenic sulcus is outside of the field of view. IMPRESSION: Well-positioned support tubes Persistent widespread alveolar infiltrates or edema Interpreted and Authenticated by: Henri Fajardo 01/28/19
--- NOTE | 2019-01-28 09:02 | XRay Report ---
HISTORY: Follow-up infiltrates FINDINGS: Study was performed at 8:36 AM. There is no pneumothorax or pleural effusion. The endotracheal and nasogastric tubes remain well-positioned. There is no widening of the mediastinum. There are still widespread alveolar infiltrates in both lungs. These have improved since 2:49 AM on the same date. The heart size appears normal. IMPRESSION: Improving widespread bilateral infiltrates No pneumothorax Interpreted and Authenticated by: Henri Fajardo 01/28/19
[2019-01-28] MEDS ORDERED: PROPOFOL 200 MG/20 ML VIAL IV ONE (10:15)
[2019-01-28] MEDS ORDERED: SUCCINYLCHOLINE 20 MG/ML ML IV ONE (10:15)
[2019-01-28] MEDS: VANCOMYCIN 1,000 MG in 0.9 % SODIUM CHLORIDE 250 ML IV SCH ×2 (10:16→20:46)
[2019-01-28] MEDS: ALPRAZolam 0.5 MG TABLET PO SCH (10:18)
[2019-01-28] MEDS: DEXMEDETOMIDINE HCL 400 MCG/100 ML BAG IV SCH ×2 (11:11→20:40)
[2019-01-28] MEDS: FAMOTIDINE/PF 20 MG/2 ML VIAL IV SCH ×2 (11:12→20:46)
[2019-01-28] MEDS: ENOXAPARIN 40 MG/0.4 ML SYRINGE SQ SCH ×2 (11:12→21:00)
--- NOTE | 2019-01-28 11:14 | General Surgery Progress Note ---
Subjective Patient reports: afebrile Narrative: Note initiated : 01/28/19 at 11:09 am Service Date, if different from initiated Date: [] Patient: Jennifer Gama 78 y/o F admitted on 01/25/19 for Incisional Hernia Repair, Bilateral Seperation of . Chief Complaint: Patient has gradually improved over the last few hours. She is still on low-dose levo fed with blood pressure 116/55. Heart rate is 96 and regular. Her FiO2 is 70% and blood gases revealed pH 7.29, PCO2 25, PO2 117. Chest x-ray is much improved with decrease in central venous infiltrate and alveolar infiltrate. Her proBNP was 1505. Pro-calcitonin was 0.21. Potassium is 4.3. She has minimal output through her ET tube but there was enough for culture and sensitivity . Her urine output is gradually increasing.] Objective Temp Pulse Resp BP Pulse Ox 98.3 F 96 H 20 116/56 100 01/27/19 22:52 01/28/19 08:50 01/28/19 09:50 01/28/19 08:31 01/28/19 09:50 - Additional Data Intake & Output - Last 24 hours: Intake & Output 01/26/19 01/27/19 01/28/19 01/29/19 05:59 05:59 05:59 05:59 Intake Total 3900 3230 1950 47 Output Total 955 1700 2160 105 Balance 2945 1530 -210 -58 Weight 210 lb 205 lb 12.8 oz 208 lb - General physical appearance other (patient is intubated and sedated but does respond to simple commands) - Eyes PERRL, normal ocular movement - Neck no venous distension - Respiratory other (few scattered coarse tubular breath sounds but significant improvement in aeration in significant decrease in coarse wheezes) - Cardiovascular Cardiovascular exam: Present: +S1, +S2, tachycardia - Abdomen distended (jared distended but with good active bowel sounds; incision looks good; DAYNE drainage is serous) - Integumentary no rash, no growths, no abnormal pigmentation - Labs 01/28/19 02:50 01/28/19 02:50 Diabetes panel 01/28/19 Range/Units 02:50 Sodium 139 (133-145) mmol/L Potassium 4.3 (3.3-5.1) mmol/L Chloride 105 (96-108) mmol/L Carbon Dioxide 20 L (22-30) mmol/L BUN 15 (8-23) mg/dl Creatinine 0.9 (0.6-1.1) mg/dl Glucose 123 H (70-105) mg/dL Calcium 9.1 (8.6-10.4) mg/dl AST 67 H (0-37) U/l ALT 85 H (0-40) U/l Alkaline Phosphatase 371 H (39-117) U/L Total Protein 7.5 (5.9-8.4) gm/dL Albumin 3.5 (3.2-5.2) gm/dL Calcium panel 01/28/19 Range/Units 02:50 Calcium 9.1 (8.6-10.4) mg/dl Albumin 3.5 (3.2-5.2) gm/dL Pituitary panel 01/28/19 Range/Units 02:50 Sodium 139 (133-145) mmol/L Potassium 4.3 (3.3-5.1) mmol/L Chloride 105 (96-108) mmol/L Carbon Dioxide 20 L (22-30) mmol/L BUN 15 (8-23) mg/dl Creatinine 0.9 (0.6-1.1) mg/dl Glucose 123 H (70-105) mg/dL Calcium 9.1 (8.6-10.4) mg/dl Adrenal panel 01/28/19 Range/Units 02:50 Sodium 139 (133-145) mmol/L Potassium 4.3 (3.3-5.1) mmol/L Chloride 105 (96-108) mmol/L Carbon Dioxide 20 L (22-30) mmol/L BUN 15 (8-23) mg/dl Creatinine 0.9 (0.6-1.1) mg/dl Glucose 123 H (70-105) mg/dL Calcium 9.1 (8.6-10.4) mg/dl Total Bilirubin 1.2 H (0.0-1.0) mg/dL AST 67 H (0-37) U/l ALT 85 H (0-40) U/l Alkaline Phosphatase 371 H (39-117) U/L Total Protein 7.5 (5.9-8.4) gm/dL Albumin 3.5 (3.2-5.2) gm/dL Assessment and Plan (1) Incisional hernia Status: Acute Assessment and plan: Decrease IV to 50 cc/h Delay advancing diet until she has more intestinal activity Current Visit: Yes (2) COPD (chronic obstructive pulmonary disease) Status: Chronic Assessment and plan: Continue ventilatory support Continue Pulmicort and nebulizer therapy Continue Lasix diuresis Follow-up BNP Current Visit: No (3) Obesity (BMI 30.0-34.9) Status: Chronic Current Visit: No (4) Major depressive disorder, recurrent severe without psychotic features Status: Chronic Current Visit: No (5) Acute exacerbation of chronic obstructive airways disease Status: Acute Assessment and plan: transfer to icu for intubation lasix 20 mg IV stat stat CXR DUONEB Q6H CXR IN A.M. TROPONIN STAT ECG STAT HOSPITALIST CONSULT Current Visit: No - Time Spent With Patient Total time spent is greater than 50% in coordination of care (as documented) at patient's floor/unit and/or counseling patient:
[2019-01-28] MEDS: LEVOFLOXACIN 750 MG/150 ML BAG IV SCH (11:37)
[2019-01-28] MEDS: NICOTINE 21 MG PATCH TOPICAL SCH (11:39)
[2019-01-28] MEDS: HYDROmorphone 2 MG/ML VIAL IV PRN ×3 (12:49→19:07)
[2019-01-28] MEDS: CHLORHEXIDINE GLUCONATE 1 ML ORAL.SOL SWABMOUTH SCH ×2 (13:52→20:47)
[2019-01-28] MEDS: FUROSEMIDE 40 MG/4 ML VIAL IV SCH (16:14)
[2019-01-28] MEDS ORDERED: ALBUMIN HUMAN 12.5 GM/50 ML BAG IV ONE (16:36)
[2019-01-28] MEDS: 0.9 % SODIUM CHLORIDE 250 ML IV SCH (16:48)
[2019-01-28] MEDS: HYDROCORTISONE SOD SUCC 100 MG VIAL IV SCH ×2 (17:48→23:29)
[2019-01-28] MEDS ORDERED: MIRTAZAPINE 15 MG TABLET PO SCH (21:00)
[2019-01-29] MEDS: HYDROmorphone 2 MG/ML VIAL IV PRN ×6 (00:08→23:57)
[2019-01-29] MEDS: METOCLOPRAMIDE 10 MG/2 ML VIAL IV SCH ×5 (00:10→23:54)
[2019-01-29] MEDS: IPRATROPIUM/ALBUTEROL 3 ML AMPUL.NEB NEB SCH ×4 (00:58→19:34)
[2019-01-29] MEDS: DEXMEDETOMIDINE HCL 400 MCG/100 ML BAG IV SCH ×2 (03:37→08:09)
[2019-01-29] MEDS: 0.9 % SODIUM CHLORIDE 1,000 ML IV SCH ×5 (04:29→22:49)
[2019-01-29] MEDS: NOREPINEPHRINE BITARTRATE 16 MG in 0.9 % SODIUM CHLORIDE 234 ML IV SCH (04:30)
[2019-01-29] MEDS: 0.9 % SODIUM CHLORIDE 250 ML IV SCH ×2 (04:32→17:38)
[2019-01-29] MEDS: 0.9 % SODIUM CHLORIDE 10 ML SYRINGE IV SCH ×3 (05:34→21:34)
[2019-01-29] MEDS: HYDROCORTISONE SOD SUCC 100 MG VIAL IV SCH (05:37)
[2019-01-29 05:48] LABS: Basophils # (Auto) 0 K/mcL (0.0-0.3); Basophils % (Auto) 0.2 % (0.0-2.0); Eosinophils # (Auto) 0 K/mcL (0.0-0.7); Eosinophils % (Auto) 0 % (0.0-7.0); Granulocytes % (Auto) 83.6 % (38.0-78.0); Hematocrit 30.8 % (36.0-48.0); Hemoglobin 10.8 g/dL (12.0-15.0); Lymphocytes # (Auto) 0.6 K/mcL (1.5-4.8); Lymphocytes % (Auto) 11.8 % (15.5-49.0); Mean Cell Volume 94.3 fL (80.0-100.0); Mean Corpuscular HGB Conc 35.2 g/dL (31.0-36.0); Mean Platelet Volume 8.3 fL (7.4-10.4); Monocytes # (Auto) 0.2 K/mcL (0.1-0.9); Monocytes % (Auto) 4.4 % (1.0-12.0); Platelet Count 254 K/mcL (140-440); RBC 3.26 M/mcL (4.00-5.20); Red Cell Distribution Width 13.9 % (11.5-14.5)
[2019-01-29 06:07] LABS: ALT/SGPT 45 U/l (0-40); AST/SGOT 30 U/l (0-37); Albumin 2.7 gm/dL (3.2-5.2); Albumin/Globulin Ratio 0.9 (1.0-2.3); Alkaline Phosphatase 220 U/L (39-117); Bilirubin,Direct < 0.2 mg/dL (0.0-0.3); Bilirubin,Total 0.5 mg/dL (0.0-1.0); Blood Urea Nitrogen 24 mg/dl (8-23); Calcium 7.8 mg/dl (8.6-10.4); Carbon Dioxide 22 mmol/L (22-30); Chloride 107 mmol/L (96-108); Glomerular Filtration Rate 48; Glucose 145 mg/dL (70-105); Lactate Dehydrogenase 225 U/L (94-250); Phosphorous 2.9 mg/dL (2.7-4.5); Triglycerides 117 mg/dl (<150); Uric Acid 8.1 mg/dL (2.5-8.0)
[2019-01-29] MEDS: PROPOFOL 1,000 MG in PREMIX 1 BAG IV SCH (06:37)
[2019-01-29] MEDS: BUDESONIDE 0.5 MG/2 ML AMPUL.NEB NEB SCH ×3 (06:57→19:35)
[2019-01-29] MEDS: FUROSEMIDE 40 MG/4 ML VIAL IV SCH ×2 (07:58→16:42)
--- NOTE | 2019-01-29 08:34 | Internal Med Progress Note ---
Medical - PN: Subj Patient information: Note initiated : 01/29/19 at 8:28 am Service Date, if different from initiated Date: [] Patient: Jennifer Gama a 78 y/o F admitted on 01/25/19 for Incisional Hernia Repair, Bilateral Seperation of . Chief Complaint: [] Interval history: Ms. Gama is a 78 year old F On the for repair of major incisional hernia with the subsequent repair and lysis of extensive abdominal adhesions. Hospital course remarkable for anxiety with a history of the same, she had episodes of hypertension since surgery. Early on the patient came somewhat agitated and while nurse was obtaining as needed anxiolytic and pain medication patient heard calling out for help and reported being short of breath. No specific complaints of any chest pain. She appeared diaphoretic cool and clammy respiratory rate of 30 and O2 sat of 75% on 3 L of oxygen. Edel smith initiated. Dr. Medrano contacted, subsequently anesthesia. ABG with pH of 7.1 and a CO2 of 72 with an PaO2 of 49. Patient was intubated anesthesia. She did become hypotensive post procedure with subsequent hypertension and drop in blood pressure again. Chest x-ray with pulmonary edema. Positive fluid balance and increased weight. Preop echo no significant abnormalities. EKG with some depression in the v5-v6 somewhat more pronounced than previous EKG. Per discussion with family members she has no history of heart failure or CAD. Her blood pressures are okay at home but her heart rate typically runs between 8 0-100 significant anxiety. She does not wear any home oxygen for her COPD. She does use a CPAP machine at night for obstructive sleep apnea. Colon cancer several years ago had surgery and subsequent PE. She was on warfarin for what sounds to be about a year. 01/29 No events overnight. Patient awake on the vent this morning on weaning trial. Good weaning parameters and patient following commands. Plan for extubation this morning. - Constitutional Vitals: Vital Signs Temp Pulse Resp BP Pulse Ox 97.5 F 72 16 108/55 95 01/29/19 07:01 01/29/19 07:24 01/29/19 07:24 01/29/19 07:22 01/29/19 07:45 Period Temp Pulse Resp BP Sys/Knapp Pulse Ox Last 24 Hr 97 F-98.7 F 69-104 16-27 95-175/49-119 93-100 Intake and Output 01/28/19 01/29/19 01/29/19 21:59 05:59 13:59 Intake Total 1572 1106 1333 Output Total 2210 709 195 Balance -375 794 1398 Weight 91.49 kg Intake & Output: Intake & Output 01/28/19 01/29/19 01/29/19 21:59 05:59 13:59 Intake Total 1572 1106 1333 Output Total 2210 709 195 Balance -936 794 4929 Weight 91.49 kg Intake: IV 1572 1106 1333 Sodium Chloride 0.9% 1,000 ml @ 9168 133 5595 125 mls/hr IV .Q8H [facility] Rx#: [id number] PRECEDEX 400 MCG/100 ML 59 66 33 DEXTROSE 400 mcg In 100 ml @ 0. 2 MCG/KG/HR 4.717 mls/hr IV . [id number] [facility] Rx#:[id number] Levophed 16 mg In Sodium 163 63 Chloride 0.9% 234 ml @ 10 MCG/ MIN 9.375 mls/hr IV Q24H [facility] Rx #:[id number] Diprivan 100 ml @ 0 mls/hr IV . 50 [facility] Rx#:[id number] Vancomycin 1,000 mg In Sodium 250 250 Chloride 0.9% 250 ml @ 250 mls/ hr IV Q12H [facility] Rx#:[id number] Output: Gastric Drainage 200 30 Right Nare NG/OG 200 30 Drainage 35 Left Abdomen 3 5 Left Abdomen 4 0 Right Abdomen 1 20 Right Abdomen 2 10 Drainage 44 Abdomen 4 Left Abdomen 3 15 Right Abdomen 1 25 Urine Catheter Amount 1525 635 195 Void Amount 450 Other: Urine Appearance Clear Clear Clear Uretheral (Buchanan) Clear Urine Color Bright Yellow Dark Yellow Bright Yellow Uretheral (Buchanan) Pale Bright Yellow Urine Odor Normal Normal # Bowel Movements 0 # of times incontinent of 0 Bowels Exam: General: awake on vent , no acute Distress Eyes/N/T: EOMI Head/Neck: neck supple, normocephalic atraumatic CV: RRR, No murmurs, Pulm: Mild course vent sounds b/l, no wheezing Abd: soft, +BSD, binder in place, drains in place Ext: no clubbing/cyanosis, 1+ b/l LE edema Neuro: Awake on the vent. Follows commands, no focal deficits Skin: warm/dry Medical - PN: Obj Da - Labs CBC & Chem 7: 01/29/19 04:22 01/29/19 04:22 Labs: Abnormal Lab Results 01/29/19 01/29/19 01/28/19 04:22 04:22 02:50 WBC RBC 3.26 L Hgb 10.8 L Hct 30.8 L RDW Plt Count Gran % 83.6 H Lymph % (Auto) 11.8 L Gran # Lymph # (Auto) 0.6 L Carbon Dioxide BUN 24 H Glucose 145 H Uric Acid 8.1 H Calcium 7.8 L Total Bilirubin Direct Bilirubin GGT 190 H AST ALT 45 H Alkaline Phosphatase 220 H Lactate Dehydrogenase NT-Pro-B Natriuret Pep 73743.0 H 1505.0 H Total Protein 5.7 L Albumin 2.7 L Globulin Albumin/Globulin Ratio 0.9 L 01/28/19 01/28/19 01/27/19 02:50 02:50 04:05 WBC 17.7 H 11.6 H RBC Hgb Hct RDW 14.6 H Plt Count 442 H Gran % 79.9 H Lymph % (Auto) 12.6 L Gran # 13.2 H 9.3 H Lymph # (Auto) Carbon Dioxide 20 L BUN Glucose 123 H Uric Acid Calcium Total Bilirubin 1.2 H Direct Bilirubin GGT AST 67 H ALT 85 H Alkaline Phosphatase 371 H Lactate Dehydrogenase NT-Pro-B Natriuret Pep Total Protein Albumin Globulin 4.0 H Albumin/Globulin Ratio 0.9 L 01/26/19 01/26/19 12:30 12:30 WBC 11.9 H RBC Hgb Hct RDW Plt Count Gran % 84.8 H Lymph % (Auto) 8.3 L Gran # 10.1 H Lymph # (Auto) 1.0 L Carbon Dioxide BUN Glucose 106 H Uric Acid Calcium Total Bilirubin 1.3 H Direct Bilirubin 0.9 H GGT 249 H AST 88 H ALT 111 H Alkaline Phosphatase 247 H Lactate Dehydrogenase 270 H NT-Pro-B Natriuret Pep Total Protein Albumin Globulin Albumin/Globulin Ratio Meds: Medications Albuterol/Ipratropium (Duoneb) 3 ml NEB Q6HRT [facility] Last Admin: 01/29/19 00:58 Dose: 3 ml Documented by: Alprazolam (Xanax) 1 mg PO DAILY [facility] Last Admin: 01/28/19 10:18 Dose: Not Given Documented by: Budesonide (Pulmicort) 0.5 mg NEB Q12 [facility] Last Admin: 01/29/19 06:57 Dose: 0.5 mg Documented by: Chlorhexidine Gluconate (Peridex) 15 ml SWABMOUTH BID [facility] Last Admin: 01/28/19 20:47 Dose: 15 ml Documented by: Enoxaparin Sodium (Lovenox) 40 mg SQ BID [facility] Last Admin: 01/28/19 21:00 Dose: 40 mg Documented by: Famotidine (Pepcid) 20 mg IV Q12 [facility] Last Admin: 01/28/19 20:46 Dose: 20 mg Documented by: Furosemide (Lasix) 40 mg IV BIDD [facility] Stop: 01/29/19 16:01 Last Admin: 01/29/19 07:58 Dose: 40 mg Documented by: Hydromorphone HCl (Dilaudid) 1 mg IV Q2HP PRN PRN Reason: PAIN LEVEL > 6 Last Admin: 01/29/19 05:10 Dose: 1 mg Documented by: Levofloxacin (Levaquin) 750 mg in 150 mls @ 100 mls/hr IV DAILY [facility]; Protocol Stop: 01/30/19 10:29 Last Infusion: 01/28/19 13:49 Dose: Infused Documented by: Sodium Chloride (Sodium Chloride 0.9%) 1,000 mls @ 125 mls/hr IV .Q8H [facility] Last Admin: 01/29/19 06:49 Dose: 125 mls/hr Documented by: Vancomycin HCl 1,000 mg/ (Sodium Chloride) 250 mls @ 250 mls/hr IV Q12H [facility]; Protocol Stop: 01/29/19 21:59 Last Infusion: 01/29/19 07:18 Dose: Infused Documented by: Heparin Sodium/Sodium Chloride (Heparin/Ns) 500 mls @ 0 mls/hr IV .Q0M [facility]; Pr otocol Norepinephrine Bitartrate 16 (mg/ Sodium Chloride) 250 mls @ 9.375 mls/hr IV Q24H [facility]; Protocol Last Admin: 01/29/19 04:30 Dose: Not Given Documented by: Propofol 1,000 mg/ Premix 100 mls @ 2.83 mls/hr IV .Q24H [facility]; Protocol Last Admin: 01/29/19 06:37 Dose: Not Given Documented by: Dexmedetomidine HCl (Precedex 400 Mcg/100 Ml Dextrose) 400 mcg in 100 mls @ 4.717 mls/hr IV .[id number] [facility]; Protocol Last Admin: 01/29/19 08:09 Dose: Not Given Documented by: Sodium Chloride (Sodium Chloride 0.9%) 250 mls @ 20 mls/hr IV .[id number] [facility] Last Admin: 01/29/19 04:32 Dose: Not Given Documented by: Lorazepam (Ativan) 0.5 mg IV Q4HP PRN PRN Reason: ANXIETY/SEDATION Last Admin: 01/29/19 05:51 Dose: 0.5 mg Documented by: Metoclopramide HCl (Reglan) 10 mg IV Q6 [facility] Last Admin: 01/29/19 05:10 Dose: 10 mg Documented by: Metoprolol Tartrate (Lopressor) 5 mg IV Q4HP PRN PRN Reason: Tachyarrhythmias Nicotine (Nicoderm) 21 mg TOPICAL DAILY@1000 [facility] Last Admin: 01/28/19 11:39 Dose: Not Given Documented by: Promethazine HCl (Phenergan) 12.5 mg IV Q4HP PRN PRN Reason: Nausea And Vomiting Sodium Chloride (Saline Flush) 10 ml IV Q8 [facility] Last Admin: 01/29/19 05:34 Dose: Not Given Documented by: Medical - PN: A/P - Time Spent With Patient Total time spent is greater than 50% in coordination of care (as documented) at patient's floor/unit and/or counseling patient: - Narrative A/P Narrative: A: *Acute hypoxic/hypercapnic respiratory failure: in setting of underlying COPD & KANU with volume overload -EKG with some ST depression v5-6 more pronounced than prior EKG, Trop negative -PCT low, no bandemia/fevers -continues to improve *Volume overload: -Preop echo with no significant abnormalities -elevated BNP -f/u CXR improving infiltrates *Hypotension: post RSI and then again with propofol -off vasopressors last night, BP stable *HTN post-op: likely 2/2 pain/anxiety and could have been contributor to pulmonary edema *COPD (not on home oxygen): *KANU with CPAP: *Obesity: *Anxiety with panic attacks/depression: *Heart rate at home per family runs 80-100 *h/o colon cancer with subsequent surgery and postoperative PE: Was on warfarin for a year *Incisional hernia: Status post repair with lysis of adhesions (01/25) * P: -extubate -f/u CXR -IV lasix -i/o's, weights -israel/prn nebs -cont abx levaquin/vanco per surg -ppx: lovenox/h2 Procedures - Arterial Line Size (Gauge): 20
[2019-01-29] MEDS: VANCOMYCIN 1,000 MG in 0.9 % SODIUM CHLORIDE 250 ML IV SCH ×2 (08:55→20:05)
[2019-01-29] MEDS: LEVOFLOXACIN 750 MG/150 ML BAG IV SCH (09:01)
--- NOTE | 2019-01-29 09:23 | XRay Report ---
HISTORY: Intubated follow-up pulmonary infiltrates FINDINGS: There are generalized mild alveolar and interstitial infiltrates throughout both lungs, right side worse than left. This continues to gradually improve compared with multiple prior exams performed yesterday. The endotracheal tube and nasogastric tube remain well-positioned. There is no pneumothorax, pleural effusion or widening of the mediastinum. The heart size is normal. IMPRESSION: Gradually improving bilateral diffuse infiltrates. This could be fluid overload or an inflammatory reaction Interpreted and Authenticated by: Henri Fajardo 01/29/19
[2019-01-29] MEDS: CHLORHEXIDINE GLUCONATE 1 ML ORAL.SOL SWABMOUTH SCH ×2 (09:47→20:01)
[2019-01-29] MEDS: FAMOTIDINE/PF 20 MG/2 ML VIAL IV SCH ×2 (09:48→20:05)
[2019-01-29] MEDS: ENOXAPARIN 40 MG/0.4 ML SYRINGE SQ SCH ×2 (09:48→20:05)
[2019-01-29] MEDS: ALPRAZolam 0.5 MG TABLET PO SCH (10:04)
[2019-01-29] MEDS: NICOTINE 21 MG PATCH TOPICAL SCH (11:04)
--- NOTE | 2019-01-29 13:35 | General Surgery Progress Note ---
Subjective Patient reports: feels better, pain is less, flatus, bowel movement, afebrile Narrative: Note initiated : 01/29/19 at 1:32 pm Service Date, if different from initiated Date: [] Patient: Jennifer Gama 78 y/o F admitted on 01/25/19 for Incisional Hernia Repair, Bilateral Seperation of . Chief Complaint: [patient has improved throughout the night. She had progressive improvement in her ventilatory status and has been successfully extubated. She maintained good oxygenation saturation off ventilatory support. She is having a very brisk diuresis was over 4000 cc output so far today. She also has passed flatus and had a large bowel movement. PH 7.47, PCO2 32,, PO2 76 (30%). White count 5, hemoglobin 10.8 ,hematocrit 30.8. BUN 24, creatinine 1.1, BNP 13,938.] Objective Temp Pulse Resp BP Pulse Ox 97.6 F 93 H 19 144/63 98 01/29/19 12:01 01/29/19 13:19 01/29/19 13:19 01/29/19 13:17 01/29/19 13:19 - Additional Data Intake & Output - Last 24 hours: Intake & Output 01/27/19 01/28/19 01/29/19 01/30/19 05:59 05:59 05:59 05:59 Intake Total 3230 1950 3125 1333 Output Total 1700 2160 3379 2040 Balance 1530 -210 -254 -707 Weight 205 lb 12.8 oz 208 lb 201 lb 11.2 oz - General physical appearance moderate distress, moderate pain - Eyes PERRL, normal ocular movement - ENT normal pinna, normal nares, normal mucosa, no hearing loss, no congestion - Neck no masses, no bruits, trachea midline, no lymphadenopathy, no venous distension - Respiratory other (good breath sounds bilaterally; still with coarse tubular breath sounds; much improved air movement bilaterally) - Cardiovascular Cardiovascular exam: Present: normal rate and rhythm, RRR, +S1, +S2. Absent: JVD, tachycardia - Abdomen soft ( abdomen is soft and and she has good active bowel sounds. Incision looks good.), bowel sounds (present), surgical scars (none), masses (none) - Integumentary no rash, no growths, no abnormal pigmentation - Neurologic normal coordination, normal sensation - Psychiatric oriented to time, oriented to person, oriented to place, speech is normal, memory intact - Labs 01/29/19 04:22 01/29/19 04:22 Diabetes panel 01/29/19 Range/Units 04:22 Sodium 142 (133-145) mmol/L Potassium 3.5 (3.3-5.1) mmol/L Chloride 107 (96-108) mmol/L Carbon Dioxide 22 (22-30) mmol/L BUN 24 H (8-23) mg/dl Creatinine 1.1 (0.6-1.1) mg/dl Glucose 145 H (70-105) mg/dL Calcium 7.8 L (8.6-10.4) mg/dl AST 30 (0-37) U/l ALT 45 H (0-40) U/l Alkaline Phosphatase 220 H (39-117) U/L Total Protein 5.7 L (5.9-8.4) gm/dL Albumin 2.7 L (3.2-5.2) gm/dL Triglycerides 117 (<150) mg/dl Calcium panel 01/29/19 Range/Units 04:22 Calcium 7.8 L (8.6-10.4) mg/dl Phosphorus 2.9 (2.7-4.5) mg/dL Albumin 2.7 L (3.2-5.2) gm/dL Pituitary panel 01/29/19 Range/Units 04:22 Sodium 142 (133-145) mmol/L Potassium 3.5 (3.3-5.1) mmol/L Chloride 107 (96-108) mmol/L Carbon Dioxide 22 (22-30) mmol/L BUN 24 H (8-23) mg/dl Creatinine 1.1 (0.6-1.1) mg/dl Glucose 145 H (70-105) mg/dL Calcium 7.8 L (8.6-10.4) mg/dl Adrenal panel 01/29/19 Range/Units 04:22 Sodium 142 (133-145) mmol/L Potassium 3.5 (3.3-5.1) mmol/L Chloride 107 (96-108) mmol/L Carbon Dioxide 22 (22-30) mmol/L BUN 24 H (8-23) mg/dl Creatinine 1.1 (0.6-1.1) mg/dl Glucose 145 H (70-105) mg/dL Calcium 7.8 L (8.6-10.4) mg/dl Total Bilirubin 0.5 (0.0-1.0) mg/dL AST 30 (0-37) U/l ALT 45 H (0-40) U/l Alkaline Phosphatase 220 H (39-117) U/L Total Protein 5.7 L (5.9-8.4) gm/dL Albumin 2.7 L (3.2-5.2) gm/dL Assessment and Plan (1) Incisional hernia Status: Acute Assessment and plan: decrease IV to 25 cc per hour Full liquid diet Increase activity with ambulation out of bed Current Visit: Yes (2) COPD (chronic obstructive pulmonary disease) Status: Chronic Assessment and plan: Continue Pulmicort and nebulizer therapy Continue Lasix diuresis Follow-up BNP Current Visit: No (3) Obesity (BMI 30.0-34.9) Status: Chronic Current Visit: No (4) Major depressive disorder, recurrent severe without psychotic features Status: Chronic Current Visit: No (5) Acute exacerbation of chronic obstructive airways disease Status: Acute Assessment and plan: Continue to monitor overnight Current Visit: No - Time Spent With Patient Total time spent is greater than 50% in coordination of care (as documented) at patient's floor/unit and/or counseling patient:
[2019-01-29] MEDS ORDERED: ALBUMIN HUMAN 12.5 GM/50 ML BAG IV ONE (16:00)
[2019-01-29] MEDS ORDERED: ARIPIPRAZOLE 10 MG TABLET PO SCH (21:00)
[2019-01-30] MEDS: IPRATROPIUM/ALBUTEROL 3 ML AMPUL.NEB NEB SCH ×4 (00:34→19:05)
[2019-01-30] MEDS: HYDROmorphone 2 MG/ML VIAL IV PRN ×3 (03:36→20:23)
[2019-01-30] MEDS: NOREPINEPHRINE BITARTRATE 16 MG in 0.9 % SODIUM CHLORIDE 234 ML IV SCH (03:55)
[2019-01-30] MEDS: DEXMEDETOMIDINE HCL 400 MCG/100 ML BAG IV SCH (03:56)
[2019-01-30] MEDS: METOCLOPRAMIDE 10 MG/2 ML VIAL IV SCH ×3 (05:11→18:45)
[2019-01-30] MEDS: 0.9 % SODIUM CHLORIDE 10 ML SYRINGE IV SCH ×4 (05:12→20:28)
[2019-01-30] MEDS: BUDESONIDE 0.5 MG/2 ML AMPUL.NEB NEB SCH ×2 (07:14→19:03)
--- NOTE | 2019-01-30 07:22 | Internal Med Progress Note ---
Medical - PN: Subj Patient information: Note initiated : 01/30/19 at 7:17 am Service Date, if different from initiated Date: [] Patient: Jennifer Gama a 78 y/o F admitted on 01/25/19 for Incisional Hernia Repair, Bilateral Seperation of . Chief Complaint: [] Interval history: Ms. Gama is a 78 year old F On the for repair of major incisional hernia with the subsequent repair and lysis of extensive abdominal adhesions. Hospital course remarkable for anxiety with a history of the same, she had episodes of hypertension since surgery. Early on the patient came somewhat agitated and while nurse was obtaining as needed anxiolytic and pain medication patient heard calling out for help and reported being short of breath. No specific complaints of any chest pain. She appeared diaphoretic cool and clammy respiratory rate of 30 and O2 sat of 75% on 3 L of oxygen. Edel smith initiated. Dr. Medrano contacted, subsequently anesthesia. ABG with pH of 7.1 and a CO2 of 72 with an PaO2 of 49. Patient was intubated anesthesia. She did become hypotensive post procedure with subsequent hypertension and drop in blood pressure again. Chest x-ray with pulmonary edema. Positive fluid balance and increased weight. Preop echo no significant abnormalities. EKG with some depression in the v5-v6 somewhat more pronounced than previous EKG. Per discussion with family members she has no history of heart failure or CAD. Her blood pressures are okay at home but her heart rate typically runs between 8 0-100 significant anxiety. She does not wear any home oxygen for her COPD. She does use a CPAP machine at night for obstructive sleep apnea. Colon cancer several years ago had surgery and subsequent PE. She was on warfarin for what sounds to be about a year. 01/29 No events overnight. Patient awake on the vent this morning on weaning trial. Good weaning parameters and patient following commands. Plan for extubation this morning. 01/30 Extubated yesterday morning without incident. Patient slept well last night and feeling much better today. She has a occasional loose cough. Denies any shortness of breath. But is on supplemental oxygen still. Normal pain seems to be controlled. She had a bowel movement and seems to be showing good improvement. Chest x-ray with moderate atelectasis. Review of Systems: denies headache/fever/chills/nausea/vomiting/chest or abdominal pain/dyspn ea/diarrhea. Otherwise see above. - Constitutional Vitals: Vital Signs Temp Pulse Resp BP Pulse Ox 97.4 F 93 H 13 117/60 99 01/30/19 06:02 01/30/19 06:02 01/30/19 06:02 01/30/19 06:01 01/30/19 06:02 Period Temp Pulse Resp BP Sys/Knapp Pulse Ox Last 24 Hr 97.2 F-98.4 F 72-125 8-32 99-157/52-93 90-99 Intake and Output 01/29/19 01/30/19 01/30/19 21:59 05:59 13:59 Output Total 2320 522 Balance -2320 -522 Weight 87.997 kg Intake & Output: Intake & Output 01/29/19 01/30/19 01/30/19 21:59 05:59 13:59 Output Total 2320 522 Balance -2320 -522 Weight 87.997 kg Output: Drainage 50 30 Abdomen 30 Left Abdomen 3 20 Right Abdomen 1 30 Urine Catheter Amount 2270 492 Other: Urine Appearance Clear Clear Uretheral (Buchanan) Clear Urine Color Pale Dark Yellow Uretheral (Buchanan) Pale Urine Odor Normal Normal Uretheral (Buchanan) Normal Exam: General: awake, no acute Distress Eyes/N/T: EOMI Head/Neck: neck supple, normocephalic atraumatic CV: RRR, No murmurs, Pulm: clear b/l, no wheezing Abd: soft, +BSD, binder in place, drains in place Ext: no clubbing/cyanosis, 1+ b/l LE edema Neuro: Awake. no focal deficits, moves all extremities Skin: warm/dry Medical - PN: Obj Da - Labs CBC & Chem 7: 01/29/19 04:22 01/30/19 04:00 Labs: Abnormal Lab Results 01/29/19 01/29/19 01/28/19 04:22 04:22 02:50 WBC RBC 3.26 L Hgb 10.8 L Hct 30.8 L RDW Plt Count Gran % 83.6 H Lymph % (Auto) 11.8 L Gran # Lymph # (Auto) 0.6 L Carbon Dioxide BUN 24 H Glucose 145 H Uric Acid 8.1 H Calcium 7.8 L Total Bilirubin GGT 190 H AST ALT 45 H Alkaline Phosphatase 220 H NT-Pro-B Natriuret Pep 02618.0 H 1505.0 H Total Protein 5.7 L Albumin 2.7 L Globulin Albumin/Globulin Ratio 0.9 L 01/28/19 01/28/19 02:50 02:50 WBC 17.7 H RBC Hgb Hct RDW 14.6 H Plt Count 442 H Gran % Lymph % (Auto) Gran # 13.2 H Lymph # (Auto) Carbon Dioxide 20 L BUN Glucose 123 H Uric Acid Calcium Total Bilirubin 1.2 H GGT AST 67 H ALT 85 H Alkaline Phosphatase 371 H NT-Pro-B Natriuret Pep Total Protein Albumin Globulin 4.0 H Albumin/Globulin Ratio 0.9 L Meds: Medications Albuterol/Ipratropium (Duoneb) 3 ml NEB Q6HRT [facility] Last Admin: 01/30/19 07:13 Dose: 3 ml Documented by: Alprazolam (Xanax) 1 mg PO DAILY [facility] Last Admin: 01/29/19 10:04 Dose: 1 mg Documented by: Budesonide (Pulmicort) 0.5 mg NEB Q12 [facility] Last Admin: 01/30/19 07:14 Dose: 0.5 mg Documented by: Chlorhexidine Gluconate (Peridex) 15 ml SWABMOUTH BID [facility] Last Admin: 01/29/19 20:01 Dose: Not Given Documented by: Enoxaparin Sodium (Lovenox) 40 mg SQ BID [facility] Last Admin: 01/29/19 20:05 Dose: 40 mg Documented by: Famotidine (Pepcid) 20 mg IV Q12 [facility] Last Admin: 01/29/19 20:05 Dose: 20 mg Documented by: Hydromorphone HCl (Dilaudid) 1 mg IV Q2HP PRN PRN Reason: PAIN LEVEL > 6 Last Admin: 01/30/19 03:36 Dose: 1 mg Documented by: Levofloxacin (Levaquin) 750 mg in 150 mls @ 100 mls/hr IV DAILY [facility]; Protocol Stop: 01/30/19 10:29 Last Admin: 01/29/19 09:01 Dose: 100 mls/hr Documented by: Heparin Sodium/Sodium Chloride (Heparin/Ns) 500 mls @ 0 mls/hr IV .Q0M [facility]; Protocol Norepinephrine Bitartrate 16 (mg/ Sodium Chloride) 250 mls @ 9.375 mls/hr IV Q24H [facility]; Protocol Last Admin: 01/30/19 03:55 Dose: Not Given Documented by: Propofol 1,000 mg/ Premix 100 mls @ 2.83 mls/hr IV .Q24H [facility]; Protocol Last Admin: 01/29/19 06:37 Dose: Not Given Documented by: Dexmedetomidine HCl (Precedex 400 Mcg/100 Ml Dextrose) 400 mcg in 100 mls @ 4.717 mls/hr IV .[id number] [facility]; Protocol Last Admin: 01/30/19 03:56 Dose: Not Given Documented by: Sodium Chloride (Sodium Chloride 0.9%) 1,000 mls @ 25 mls/hr IV .Q24H [facility] Last Admin: 01/29/19 22:49 Dose: 25 mls/hr Documented by: Lorazepam (Ativan) 0.5 mg IV Q4HP PRN PRN Reason: ANXIETY/SEDATION Last Admin: 01/29/19 05:51 Dose: 0.5 mg Documented by: Metoclopramide HCl (Reglan) 10 mg IV Q6 [facility] Last Admin: 01/30/19 05:11 Dose: 10 mg Documented by: Metoprolol Tartrate (Lopressor) 5 mg IV Q4HP PRN PRN Reason: Tachyarrhythmias Nicotine (Nicoderm) 21 mg TOPICAL DAILY@1000 [facility] Last Admin: 01/29/19 11:04 Dose: 21 mg Documented by: Aripiprazole 1 Mg (Tablet) 1 dose PO QHS [facility] Last Admin: 01/29/19 21:11 Dose: Not Given Documented by: Promethazine HCl (Phenergan) 12.5 mg IV Q4HP PRN PRN Reason: Nausea And Vomiting Sodium Chloride (Saline Flush) 10 ml IV Q8 [facility] Last Admin: 01/30/19 05:12 Dose: Not Given Documented by: Medical - PN: A/P - Time Spent With Patient Total time spent is greater than 50% in coordination of care (as documented) at patient's floor/unit and/or counseling patient: - Narrative A/P Narrative: A: *Acute hypoxic/hypercapnic respiratory failure: in setting of underlying COPD & KANU with volume overload -EKG with some ST depression v5-6 but similar on prior EKG although less pronounced, Trop negative -PCT low, no bandemia/fevers -continues to improve, extubated (01/29), now on 1L NC *Volume overload: improved -Preop echo with no significant abnormalities -elevated BNP -f/u CXR improving infiltrates, good diuresis *Atelectasis: moderate *Hypotension: post RSI and then again with propofol. Resolved, now back to being HTN -off vasopressors @0230 (01/29) *HTN post-op: likely 2/2 pain/anxiety + likely essential HTN and could have been contributor to pulmonary edema -no home meds, she state SBP 150's at home *COPD (not on home oxygen): *KANU with CPAP: *Obesity: *Anxiety with panic attacks/depression: *Heart rate at home per family runs 80-100 *h/o colon cancer with subsequent surgery and postoperative PE: Was on warfarin for a year *Incisional hernia: Status post repair with lysis of adhesions (01/25) *Hypernatremia, mild: diuretics + isotonic fluids *Hypokalemia: P: -diet per surgery -wean O2 -IS hourly -IV lasix hold today, d5w -replete potassium prn -start norvasc -i/o's, weights -israel/prn nebs -cont abx levaquin per surg -ppx: lovenox/h2 Procedures - Arterial Line Size (Gauge): 20
[2019-01-30] MEDS ORDERED: 0.9 % SODIUM CHLORIDE 1,000 ML IV SCH (07:30)
[2019-01-30 08:09] LABS: ALT/SGPT 37 U/l (0-40); AST/SGOT 27 U/l (0-37); Albumin 2.8 gm/dL (3.2-5.2); Albumin/Globulin Ratio 0.9 (1.0-2.3); Alkaline Phosphatase 200 U/L (39-117); Bilirubin,Direct < 0.2 mg/dL (0.0-0.3); Bilirubin,Total 0.5 mg/dL (0.0-1.0); Blood Urea Nitrogen 21 mg/dl (8-23); Calcium 8.3 mg/dl (8.6-10.4); Carbon Dioxide 27 mmol/L (22-30); Chloride 107 mmol/L (96-108); Globulin 3.2 gm/dL (2.2-3.7); Glomerular Filtration Rate 54; Glucose 85 mg/dL (70-105); Lactate Dehydrogenase 241 U/L (94-250); Phosphorous 2.2 mg/dL (2.7-4.5); Triglycerides 158 mg/dl (<150); Uric Acid 7.9 mg/dL (2.5-8.0)
[2019-01-30] MEDS ORDERED: POTASSIUM CHLORIDE 20 MEQ in DEXTROSE 5% IN WATER 250 ML IV ONE (08:15)
[2019-01-30] MEDS ORDERED: POTASSIUM CHLORIDE 20 MEQ TABLET PO ONE ×2 (08:15→13:00)
--- NOTE | 2019-01-30 08:21 | XRay Report ---
CLINICAL INFORMATION: Mechanically Ventilated COMPARISON: 01/29/2019 FINDINGS: Heart size, mediastinum and pulmonary vasculature are normal for portable, semirecumbent technique. Moderately airspace disease has developed in the right base which could represent atelectasis or infiltrate. Mild atelectasis left medial base Small right pleural effusion noted IMPRESSION: Moderate atelectasis or infiltrate developing in the right base. Minor atelectasis left base. Interpreted and Authenticated by: Shane Barajas 01/30/19
[2019-01-30] MEDS: PROPOFOL 1,000 MG in PREMIX 1 BAG IV SCH (08:25)
[2019-01-30] MEDS ORDERED: HYDROCHLOROTHIAZIDE 25 MG TABLET PO ONE (08:33)
[2019-01-30] MEDS ORDERED: DEXTROSE 5% IN WATER 250 ML IV SCH (08:45)
[2019-01-30] MEDS ORDERED: amLODIPine 5 MG TABLET PO SCH (09:00)
[2019-01-30] MEDS ORDERED: NEUTRA PHOS 1 PACKET PO ONE (10:03)
[2019-01-30] MEDS ORDERED: LABETALOL 5 MG/ML ML IV PRN ×2 (10:04→16:29)
[2019-01-30] MEDS: ENOXAPARIN 40 MG/0.4 ML SYRINGE SQ SCH ×2 (10:33→20:35)
[2019-01-30] MEDS: ALPRAZolam 0.5 MG TABLET PO SCH (10:34)
[2019-01-30] MEDS: FAMOTIDINE/PF 20 MG/2 ML VIAL IV SCH ×2 (11:44→20:28)
[2019-01-30] MEDS: LEVOFLOXACIN 750 MG/150 ML BAG IV SCH (11:44)
[2019-01-30] MEDS: NICOTINE 21 MG PATCH TOPICAL SCH (12:14)
[2019-01-30] MEDS: CHLORHEXIDINE GLUCONATE 1 ML ORAL.SOL SWABMOUTH SCH ×2 (12:14→20:35)
[2019-01-30 15:54] LABS: Blood Urea Nitrogen 20 mg/dl (8-23); Calcium 8.5 mg/dl (8.6-10.4); Carbon Dioxide 28 mmol/L (22-30); Chloride 105 mmol/L (96-108); Glomerular Filtration Rate 43; Glucose 106 mg/dL (70-105)
--- NOTE | 2019-01-30 15:58 | General Surgery Progress Note ---
Subjective Patient reports: feels better, pain is less, flatus, bowel movement, afebrile Narrative: Note initiated : 01/30/19 at 3:56 pm Service Date, if different from initiated Date: [] Patient: Jennifer Gama 78 y/o F admitted on 01/25/19 for Incisional Hernia Repair, Bilateral Seperation of . Chief Complaint: [patient feels much better. She denies having any respiratory difficulty. She has no cough or congestion. Her oxygen saturations have been between 90 and 94%. Her morning blood gases showed however her sat was only 89% at that time. She had multiple bowel movements and is passing large volume of flatus. She complains of hunger and denies nausea.] Objective Temp Pulse Resp BP Pulse Ox 97.4 F 96 H 19 146/72 91 01/30/19 06:02 01/30/19 15:01 01/30/19 15:54 01/30/19 15:42 01/30/19 15:01 - Additional Data Intake & Output - Last 24 hours: Intake & Output 01/28/19 01/29/19 01/30/19 01/31/19 05:59 05:59 05:59 05:59 Intake Total 1950 3125 2548 1367 Output Total 2160 3379 4882 1015 Balance -210 254 -4284 352 Weight 208 lb 201 lb 11.2 oz 194 lb 194 lb - General physical appearance no distress, moderate pain - Eyes PERRL, normal ocular movement - ENT normal pinna, normal nares, normal mucosa, no hearing loss, no congestion - Neck no masses, no bruits, trachea midline, no lymphadenopathy, no venous distension - Respiratory other (improved ventilation bilaterally; no rales rhonchi) - Cardiovascular Cardiovascular exam: Present: normal rate and rhythm, RRR, +S1, +S2. Absent: JVD, tachycardia - Abdomen soft (abdomen is much softer and she has good active bowel sounds; incision looks good), non tender, bowel sounds (present), surgical scars (none), masses (none) - Neurologic normal coordination, normal sensation - Musculoskeletal normal gait, normal posture - Psychiatric oriented to time, oriented to person, oriented to place, speech is normal, memory intact - Labs 01/29/19 04:22 01/30/19 14:51 Diabetes panel 01/30/19 01/30/19 Range/Units 04:00 14:51 Sodium 147 H 146 H (133-145) mmol/L Potassium 2.6 L* 3.0 L (3.3-5.1) mmol/L Chloride 107 105 (96-108) mmol/L Carbon Dioxide 27 28 (22-30) mmol/L BUN 21 20 (8-23) mg/dl Creatinine 1.0 1.2 H (0.6-1.1) mg/dl Glucose 85 106 H (70-105) mg/dL Calcium 8.3 L 8.5 L (8.6-10.4) mg/dl AST 27 (0-37) U/l ALT 37 (0-40) U/l Alkaline Phosphatase 200 H (39-117) U/L Total Protein 6.0 (5.9-8.4) gm/dL Albumin 2.8 L (3.2-5.2) gm/dL Triglycerides 158 H (<150) mg/dl Calcium panel 01/30/19 01/30/19 Range/Units 04:00 14:51 Calcium 8.3 L 8.5 L (8.6-10.4) mg/dl Phosphorus 2.2 L (2.7-4.5) mg/dL Albumin 2.8 L (3.2-5.2) gm/dL Pituitary panel 01/30/19 01/30/19 Range/Units 04:00 14:51 Sodium 147 H 146 H (133-145) mmol/L Potassium 2.6 L* 3.0 L (3.3-5.1) mmol/L Chloride 107 105 (96-108) mmol/L Carbon Dioxide 27 28 (22-30) mmol/L BUN 21 20 (8-23) mg/dl Creatinine 1.0 1.2 H (0.6-1.1) mg/dl Glucose 85 106 H (70-105) mg/dL Calcium 8.3 L 8.5 L (8.6-10.4) mg/dl Adrenal panel 01/30/19 01/30/19 Range/Units 04:00 14:51 Sodium 147 H 146 H (133-145) mmol/L Potassium 2.6 L* 3.0 L (3.3-5.1) mmol/L Chloride 107 105 (96-108) mmol/L Carbon Dioxide 27 28 (22-30) mmol/L BUN 21 20 (8-23) mg/dl Creatinine 1.0 1.2 H (0.6-1.1) mg/dl Glucose 85 106 H (70-105) mg/dL Calcium 8.3 L 8.5 L (8.6-10.4) mg/dl Total Bilirubin 0.5 (0.0-1.0) mg/dL AST 27 (0-37) U/l ALT 37 (0-40) U/l Alkaline Phosphatase 200 H (39-117) U/L Total Protein 6.0 (5.9-8.4) gm/dL Albumin 2.8 L (3.2-5.2) gm/dL Assessment and Plan (1) Incisional hernia Status: Acute Assessment and plan: decrease IV to 25 cc per hour regular diet Increase activity with ambulation out of bed Current Visit: Yes (2) COPD (chronic obstructive pulmonary disease) Status: Chronic Assessment and plan: Continue Pulmicort and nebulizer therapy Follow-up chest x-ray in the morning Follow-up BNP Current Visit: No (3) Obesity (BMI 30.0-34.9) Status: Chronic Current Visit: No (4) Major depressive disorder, recurrent severe without psychotic features Status: Chronic Current Visit: No (5) Acute exacerbation of chronic obstructive airways disease Status: Acute Assessment and plan: Continue to monitor overnight Current Visit: No - Time Spent With Patient Total time spent is greater than 50% in coordination of care (as documented) at patient's floor/unit and/or counseling patient:
[2019-01-30] MEDS ORDERED: PROMETHAZINE 25 MG/ML VIAL IV PRN (16:29)
[2019-01-30] MEDS ORDERED: METOPROLOL TARTRATE 5 MG/5 ML VIAL IV PRN (16:29)
[2019-01-30] MEDS ORDERED: HEPARIN/NS 500 ML IV SCH (16:29)
[2019-01-30] MEDS ORDERED: LORazepam 2 MG/ML VIAL IV PRN (16:29)
[2019-01-30] MEDS ORDERED: 0.9 % SODIUM CHLORIDE 10 ML SYRINGE IV SCH (21:00)
[2019-01-31] MEDS: METOCLOPRAMIDE 10 MG/2 ML VIAL IV SCH ×4 (00:22→17:38)
[2019-01-31] MEDS: IPRATROPIUM/ALBUTEROL 3 ML AMPUL.NEB NEB SCH ×4 (00:22→19:11)
[2019-01-31] MEDS: HYDROmorphone 2 MG/ML VIAL IV PRN (03:00)
--- NOTE | 2019-01-31 06:13 | XRay Report ---
CLINICAL INFORMATION: Mechanically Ventilated COMPARISON: 01/30/2019 FINDINGS: Heart size, mediastinum and pulmonary vessels are normal. Small infiltrate/atelectasis and effusion in the right base shows slight worsening. Atelectasis/infiltrate left medial base has improved, however. IMPRESSION: Small region of atelectasis and/or infiltrate right base with small effusion show slight worsening. Small region of atelectasis or infiltrate left medial base is nearly resolved Interpreted and Authenticated by: Shane Barajas 01/31/19
[2019-01-31] MEDS: 0.9 % SODIUM CHLORIDE 10 ML SYRINGE IV SCH ×5 (06:43→20:19)
[2019-01-31 07:19] LABS: ALT/SGPT 32 U/l (0-40); AST/SGOT 24 U/l (0-37); Alkaline Phosphatase 195 U/L (39-117); Bilirubin,Direct < 0.2 mg/dL (0.0-0.3); Bilirubin,Total 0.4 mg/dL (0.0-1.0); Blood Urea Nitrogen 17 mg/dl (8-23); Calcium 8.8 mg/dl (8.6-10.4); Carbon Dioxide 28 mmol/L (22-30); Chloride 104 mmol/L (96-108); Glomerular Filtration Rate 48; Glucose 96 mg/dL (70-105); Lactate Dehydrogenase 235 U/L (94-250); Triglycerides 166 mg/dl (<150); Uric Acid 6.1 mg/dL (2.5-8.0)
[2019-01-31] MEDS: BUDESONIDE 0.5 MG/2 ML AMPUL.NEB NEB SCH ×2 (07:41→19:11)
--- NOTE | 2019-01-31 07:42 | Internal Med Progress Note ---
Medical - PN: Subj Patient information: Note initiated : 01/31/19 at 7:39 am Service Date, if different from initiated Date: [] Patient: Jennifer Gama a 78 y/o F admitted on 01/25/19 for Incisional Hernia Repair, Bilateral Seperation of . Chief Complaint: [] Interval history: Ms. Gama is a 78 year old F On the for repair of major incisional hernia with the subsequent repair and lysis of extensive abdominal adhesions. Hospital course remarkable for anxiety with a history of the same, she had episodes of hypertension since surgery. Early on the patient came somewhat agitated and while nurse was obtaining as needed anxiolytic and pain medication patient heard calling out for help and reported being short of breath. No specific complaints of any chest pain. She appeared diaphoretic cool and clammy respiratory rate of 30 and O2 sat of 75% on 3 L of oxygen. Edel smith initiated. Dr. eMdrano contacted, subsequently anesthesia. ABG with pH of 7.1 and a CO2 of 72 with an PaO2 of 49. Patient was intubated anesthesia. She did become hypotensive post procedure with subsequent hypertension and drop in blood pressure again. Chest x-ray with pulmonary edema. Positive fluid balance and increased weight. Preop echo no significant abnormalities. EKG with some depression in the v5-v6 somewhat more pronounced than previous EKG. Per discussion with family members she has no history of heart failure or CAD. Her blood pressures are okay at home but her heart rate typically runs between 8 0-100 significant anxiety. She does not wear any home oxygen for her COPD. She does use a CPAP machine at night for obstructive sleep apnea. Colon cancer several years ago had surgery and subsequent PE. She was on warfarin for what sounds to be about a year. 01/29 No events overnight. Patient awake on the vent this morning on weaning trial. Good weaning parameters and patient following commands. Plan for extubation this morning. 01/30 Extubated yesterday morning without incident. Patient slept well last night and feeling much better today. She has a occasional loose cough. Denies any shortness of breath. But is on supplemental oxygen still. Normal pain seems to be controlled. She had a bowel movement and seems to be showing good improvement. Chest x-ray with moderate atelectasis. 01/31 Slept all right. Appetite is improving. Abdominal pain controlled. Passing gas this morning had bowel movements yesterday. Denies shortness of breath or coughing. Review of Systems: denies headache/fever/chills/nausea/vomiting/chest or abdominal pain/dyspnea/diarrhea. Otherwise see above. - Constitutional Vitals: Vital Signs Temp Pulse Resp BP Pulse Ox 97.9 F 97 H 16 137/73 92 01/31/19 03:56 01/31/19 03:56 01/31/19 03:56 01/31/19 03:56 01/31/19 03:56 Period Temp Pulse Resp BP Sys/Knapp Pulse Ox Last 24 Hr 97.9 F-98.1 F 82-103 13-31 120-170/60-77 91-96 Intake and Output 01/30/19 01/31/19 01/31/19 21:59 05:59 13:59 Intake Total 150 360 Output Total 565 1308 Balance -415 -948 Weight 89.811 kg Intake & Output: Intake & Output 01/30/19 01/31/19 01/31/19 21:59 05:59 13:59 Intake Total 150 360 Output Total 565 1308 Balance -415 -948 Weight 89.811 kg Intake: IV 150 Oral 360 Output: Drainage 65 33 Left Abdomen 3 10 4 Left Abdomen 4 15 5 Right Abdomen 1 30 20 Right Abdomen 2 10 4 Urine Catheter Amount 500 1275 Other: Meal yogurt Percent of Meal Consumed 25% Urine Appearance Clear Uretheral (Buchanan) Clear Urine Color Pale Straw Uretheral (Buchanan) Straw Stool Size Moderate Stool Color Brown Stool Consistency Liquid # Bowel Movements 1 0 Exam: General: awake, no acute Distress Eyes/N/T: EOMI Head/Neck: neck supple, normocephalic atraumatic CV: RRR, No murmurs, Pulm: clear b/l, no wheezing Abd: soft, +BSD, binder in place, drains in place Ext: no clubbing/cyanosis, mild b/l LE edema Neuro: Awake. no focal deficits, moves all extremities Skin: warm/dry Medical - PN: Obj Da - Labs CBC & Chem 7: 01/29/19 04:22 01/31/19 04:15 Labs: Abnormal Lab Results 01/31/19 01/30/19 01/30/19 04:15 14:51 04:00 RBC Hgb Hct Gran % Lymph % (Auto) Lymph # (Auto) Sodium 146 H 147 H Potassium 3.0 L 2.6 L* BUN Creatinine 1.2 H Glucose 106 H Uric Acid Calcium 8.5 L 8.3 L Phosphorus 2.2 L GGT 190 H 191 H ALT Alkaline Phosphatase 195 H 200 H NT-Pro-B Natriuret Pep Total Protein Albumin 3.0 L 2.8 L Albumin/Globulin Ratio 0.9 L Triglycerides 166 H 158 H 01/29/19 01/29/19 04:22 04:22 RBC 3.26 L Hgb 10.8 L Hct 30.8 L Gran % 83.6 H Lymph % (Auto) 11.8 L Lymph # (Auto) 0.6 L Sodium Potassium BUN 24 H Creatinine Glucose 145 H Uric Acid 8.1 H Calcium 7.8 L Phosphorus GGT 190 H ALT 45 H Alkaline Phosphatase 220 H NT-Pro-B Natriuret Pep 77472.0 H Total Protein 5.7 L Albumin 2.7 L Albumin/Globulin Ratio 0.9 L Triglycerides Meds: Medications Albuterol/Ipratropium (Duoneb) 3 ml NEB Q6HRT [facility] Last Admin: 01/31/19 00:22 Dose: 3 ml Documented by: Alprazolam (Xanax) 1 mg PO DAILY [facility] Amlodipine Besylate (Norvasc) 5 mg PO DAILY [facility] Budesonide (Pulmicort) 0.5 mg NEB Q12 [facility] Last Admin: 01/30/19 19:03 Dose: 0.5 mg Documented by: Chlorhexidine Gluconate (Peridex) 15 ml SWABMOUTH BID [facility] Last Admin: 01/30/19 20:35 Dose: 15 ml Documented by: Enoxaparin Sodium (Lovenox) 40 mg SQ BID [facility] Last Admin: 01/30/19 20:35 Dose: 40 mg Documented by: Famotidine (Pepcid) 20 mg IV Q12 [facility] Last Admin: 01/30/19 20:28 Dose: 20 mg Documented by: Heparin Sodium (Porcine) (Heparin Flush) 2 ml IV Q12 [facility] Last Admin: 01/30/19 20:28 Dose: 2 ml Documented by: Hydromorphone HCl (Dilaudid) 1 mg IV Q2HP PRN PRN Reason: PAIN LEVEL > 6 Last Admin: 01/31/19 03:00 Dose: 1 mg Documented by: Labetalol HCl (Trandate) 0 mg IV Q2HP PRN PRN Reason: Hypertension Lorazepam (Ativan) 0.5 mg IV Q4HP PRN PRN Reason: ANXIETY/SEDATION Metoclopramide HCl (Reglan) 10 mg IV Q6 [facility] Last Admin: 01/31/19 06:43 Dose: 10 mg Documented by: Metoprolol Tartrate (Lopressor) 5 mg IV Q4HP PRN PRN Reason: Tachyarrhythmias Nicotine (Nicoderm) 21 mg TOPICAL DAILY@1000 [facility] Aripiprazole 2 Mg (Tablet) 1 dose PO HS [facility] Last Admin: 01/30/19 20:27 Dose: 1 dose Documented by: Promethazine HCl (Phenergan) 12.5 mg IV Q4HP PRN PRN Reason: Nausea And Vomiting Sodium Chloride (Saline Flush) 10 ml IV Q8 [facility] Last Admin: 01/31/19 06:43 Dose: 10 ml Documented by: Sodium Chloride (Saline Flush) 10 ml IV Q12 [facility] Last Admin: 01/30/19 20:28 Dose: 10 ml Documented by: Medical - PN: A/P - Time Spent With Patient Total time spent is greater than 50% in coordination of care (as documented) at patient's floor/unit and/or counseling patient: - Narrative A/P Narrative: A: *Acute hypoxic/hypercapnic respiratory failure: in setting of underlying COPD & KANU with volume overload -EKG with some ST depression v5-6 but similar on prior EKG although less pronounced, Trop negative -PCT low, no bandemia/fevers -continues to improve, extubated (01/29), now on 1L NC *Volume overload: improved -Preop echo with no significant abnormalities -elevated BNP -f/u CXR improving infiltrates, good diuresis *Atelectasis: moderate *Hypotension: post RSI and then again with propofol. Resolved, now back to being HTN -off vasopressors @0230 (01/29) *HTN post-op: likely 2/2 pain/anxiety + likely essential HTN and could have been contributor to pulmonary edema -no home meds, she state SBP 150's at home -better controlled *COPD (not on home oxygen): *KANU with CPAP: *Obesity: *Anxiety with panic attacks/depression: *Heart rate at home per family runs 80-100 *h/o colon cancer with subsequent surgery and postoperative PE: Was on warfarin for a year *Incisional hernia: Status post repair with lysis of adhesions (01/25) *Hypernatremia, mild: diuretics + isotonic fluids, resolved *Hypokalemia: resolved P: -diet per surgery -wean O2 -IS hourly -replete potassium prn -started norvasc -i/o's, weights -israel/prn nebs -cont abx levaquin per surg -ppx: lovenox/h2 Procedures - Arterial Line Size (Gauge): 20
[2019-01-31] MEDS: FAMOTIDINE/PF 20 MG/2 ML VIAL IV SCH ×2 (08:55→20:18)
[2019-01-31] MEDS: amLODIPine 5 MG TABLET PO SCH (08:56)
[2019-01-31] MEDS: ALPRAZolam 0.5 MG TABLET PO SCH (08:56)
[2019-01-31] MEDS: ENOXAPARIN 40 MG/0.4 ML SYRINGE SQ SCH ×2 (08:56→20:24)
[2019-01-31] MEDS: CHLORHEXIDINE GLUCONATE 1 ML ORAL.SOL SWABMOUTH SCH ×2 (08:57→20:28)
[2019-01-31] MEDS: NICOTINE 21 MG PATCH TOPICAL SCH (08:57)
[2019-01-31] MEDS: oxyCODONE HCL 5 MG TABLET PO PRN ×2 (11:53→17:33)
--- NOTE | 2019-01-31 12:48 | General Surgery Progress Note ---
Subjective Patient reports: feels better, pain is less, tolerating liquids well, flatus, bowel movement, afebrile Narrative: Note initiated : 01/31/19 at 12:45 pm Service Date, if different from initiated Date: [] Patient: Jennifer Gama 78 y/o F admitted on 01/25/19 for Incisional Hernia Repair, Bilateral Seperation of . Chief Complaint: [Patient feels better. She is not having any respiratory difficulty. She is using her BiPAP during the day when she sleeps. She has had regular bowel movements without difficulty and is tolerating liquids. Oxygen saturations have been 98-92%. White blood count 5, hemoglobin 10.8, hematocrit 30.8, potassium 3.3, BUN 17, creatinine 1.1. Chest x-ray shows clearing of fl uffy alveolar infiltrates with mild basilar atelectasis.] Objective Temp Pulse Resp BP Pulse Ox 97.7 F 97 H 14 117/73 94 01/31/19 11:53 01/31/19 11:53 01/31/19 11:53 01/31/19 11:53 01/31/19 11:53 - Additional Data Intake & Output - Last 24 hours: Intake & Output 01/29/19 01/30/19 01/31/19 02/01/19 05:59 05:59 05:59 05:59 Intake Total 3125 2548 1727 240 Output Total 6714 9653 6714 177 Balance -254 -2334 -901 -235 Weight 201 lb 11.2 oz 194 lb 198 lb - General physical appearance well developed, well nourished, no distress - Eyes PERRL, normal ocular movement - ENT normal pinna, normal nares, normal mucosa, no hearing loss, no congestion - Neck no masses, no bruits, trachea midline, no lymphadenopathy, no venous distension - Respiratory normal expansion, normal respiratory effort, clear to percussion, clear to auscultation - Cardiovascular Cardiovascular exam: Present: normal rate and rhythm, RRR, +S1, +S2. Absent: JVD, tachycardia - Abdomen non tender, bowel sounds (present), surgical scars (incision looks good; good active bowel sounds; DAYNE drainage is serosanguineous), masses (none) - Integumentary no rash, no growths, no abnormal pigmentation - Neurologic normal coordination, normal sensation - Musculoskeletal normal gait, normal posture - Psychiatric oriented to time, oriented to person, oriented to place, speech is normal, memory intact - Labs 01/29/19 04:22 01/31/19 04:15 Diabetes panel 01/30/19 01/31/19 Range/Units 14:51 04:15 Sodium 146 H 144 (133-145) mmol/L Potassium 3.0 L 3.3 (3.3-5.1) mmol/L Chloride 105 104 (96-108) mmol/L Carbon Dioxide 28 28 (22-30) mmol/L BUN 20 17 (8-23) mg/dl Creatinine 1.2 H 1.1 (0.6-1.1) mg/dl Glucose 106 H 96 (70-105) mg/dL Calcium 8.5 L 8.8 (8.6-10.4) mg/dl AST 24 (0-37) U/l ALT 32 (0-40) U/l Alkaline Phosphatase 195 H (39-117) U/L Total Protein 6.0 (5.9-8.4) gm/dL Albumin 3.0 L (3.2-5.2) gm/dL Triglycerides 166 H (<150) mg/dl Calcium panel 01/30/19 01/31/19 Range/Units 14:51 04:15 Calcium 8.5 L 8.8 (8.6-10.4) mg/dl Phosphorus 4.0 (2.7-4.5) mg/dL Albumin 3.0 L (3.2-5.2) gm/dL Pituitary panel 01/30/19 01/31/19 Range/Units 14:51 04:15 Sodium 146 H 144 (133-145) mmol/L Potassium 3.0 L 3.3 (3.3-5.1) mmol/L Chloride 105 104 (96-108) mmol/L Carbon Dioxide 28 28 (22-30) mmol/L BUN 20 17 (8-23) mg/dl Creatinine 1.2 H 1.1 (0.6-1.1) mg/dl Glucose 106 H 96 (70-105) mg/dL Calcium 8.5 L 8.8 (8.6-10.4) mg/dl Adrenal panel 01/30/19 01/31/19 Range/Units 14:51 04:15 Sodium 146 H 144 (133-145) mmol/L Potassium 3.0 L 3.3 (3.3-5.1) mmol/L Chloride 105 104 (96-108) mmol/L Carbon Dioxide 28 28 (22-30) mmol/L BUN 20 17 (8-23) mg/dl Creatinine 1.2 H 1.1 (0.6-1.1) mg/dl Glucose 106 H 96 (70-105) mg/dL Calcium 8.5 L 8.8 (8.6-10.4) mg/dl Total Bilirubin 0.4 (0.0-1.0) mg/dL AST 24 (0-37) U/l ALT 32 (0-40) U/l Alkaline Phosphatase 195 H (39-117) U/L Total Protein 6.0 (5.9-8.4) gm/dL Albumin 3.0 L (3.2-5.2) gm/dL Assessment and Plan (1) Incisional hernia Status: Acute Assessment and plan: decrease IV to 25 cc per hour regular diet Increase activity with ambulation out of bed Current Visit: Yes (2) COPD (chronic obstructive pulmonary disease) Status: Chronic Assessment and plan: Continue Pulmicort and nebulizer therapy Follow-up chest x-ray in the morning Follow-up BNP Current Visit: No (3) Obesity (BMI 30.0-34.9) Status: Chronic Current Visit: No (4) Major depressive disorder, recurrent severe without psychotic features Status: Chronic Current Visit: No (5) Acute exacerbation of chronic obstructive airways disease Status: Acute Assessment and plan: Continue to monitor overnight Current Visit: No - Time Spent With Patient Total time spent is greater than 50% in coordination of care (as documented) at patient's floor/unit and/or counseling patient:
[2019-02-01] MEDS: IPRATROPIUM/ALBUTEROL 3 ML AMPUL.NEB NEB SCH ×3 (00:11→13:28)
[2019-02-01] MEDS: METOCLOPRAMIDE 10 MG/2 ML VIAL IV SCH ×3 (00:12→12:26)
[2019-02-01] MEDS: 0.9 % SODIUM CHLORIDE 10 ML SYRINGE IV SCH ×2 (06:04→08:49)
[2019-02-01 06:12] LABS: Blood Urea Nitrogen 19 mg/dl (8-23); Calcium 8.7 mg/dl (8.6-10.4); Carbon Dioxide 30 mmol/L (22-30); Chloride 103 mmol/L (96-108); Glomerular Filtration Rate 48; Glucose 100 mg/dL (70-105)
[2019-02-01] MEDS ORDERED: POTASSIUM CHLORIDE 20 MEQ TABLET PO ONE (07:03)
--- NOTE | 2019-02-01 07:03 | Internal Med Progress Note ---
Medical - PN: Subj Patient information: Note initiated : 02/01/19 at 7:01 am Service Date, if different from initiated Date: [] Patient: Jennifer Gama a 78 y/o F admitted on 01/25/19 for Incisional Hernia Repair, Bilateral Seperation of . Chief Complaint: [] Interval history: Ms. Gama is a 78 year old F On the for repair of major incisional hernia with the subsequent repair and lysis of extensive abdominal adhesions. Hospital course remarkable for anxiety with a history of the same, she had episodes of hypertension since surgery. Early on the patient came somewhat agitated and while nurse was obtaining as needed anxiolytic and pain medication patient heard calling out for help and reported being short of breath. No specific complaints of any chest pain. She appeared diaphoretic cool and clammy respiratory rate of 30 and O2 sat of 75% on 3 L of oxygen. Edel smith initiated. Dr. Medrano contacted, subsequently anesthesia. ABG with pH of 7.1 and a CO2 of 72 with an PaO2 of 49. Patient was intubated anesthesia. She did become hypotensive post procedure with subsequent hypertension and drop in blood pressure again. Chest x-ray with pulmonary edema. Positive fluid balance and increased weight. Preop echo no significant abnormalities. EKG with some depression in the v5-v6 somewhat more pronounced than previous EKG. Per discussion with family members she has no history of heart failure or CAD. Her blood pressures are okay at home but her heart rate typically runs between 8 0-100 significant anxiety. She does not wear any home oxygen for her COPD. She does use a CPAP machine at night for obstructive sleep apnea. Colon cancer several years ago had surgery and subsequent PE. She was on warfarin for what sounds to be about a year. 01/29 No events overnight. Patient awake on the vent this morning on weaning trial. Good weaning parameters and patient following commands. Plan for extubation this morning. 01/30 Extubated yesterday morning without incident. Patient slept well last night and feeling much better today. She has a occasional loose cough. Denies any shortness of breath. But is on supplemental oxygen still. Normal pain seems to be controlled. She had a bowel movement and seems to be showing good improvement. Chest x-ray with moderate atelectasis. 01/31 Slept all right. Appetite is improving. Abdominal pain controlled. Passing gas this morning had bowel movements yesterday. Denies shortness of breath or coughing. 02/01 Doing well. Sitting up in chair eating breakfast. Bowel movement last night. No new complaints. Oxygenating well. Review of Systems: denies headache/fever/chills/nausea/vomiting/chest or abdominal pain/dyspne a/diarrhea. Otherwise see above. - Constitutional Vitals: Vital Signs Temp Pulse Resp BP Pulse Ox 98.4 F 75 20 145/72 93 02/01/19 04:15 02/01/19 04:15 02/01/19 04:15 02/01/19 04:15 02/01/19 04:15 Period Temp Pulse Resp BP Sys/Knapp Pulse Ox Last 24 Hr 97.7 F-98.9 F 75-102 14-20 117-162/70-83 89-95 Intake and Output 01/31/19 02/01/19 02/01/19 21:59 05:59 13:59 Intake Total 600 120 Output Total 960 332 100 Balance -360 -212 -100 Weight 91.399 kg Intake & Output: Intake & Output 01/31/19 02/01/19 02/01/19 21:59 05:59 13:59 Intake Total 600 120 Output Total 960 332 100 Balance -360 -212 -100 Weight 91.399 kg Intake: Oral 600 120 Output: Drainage 60 32 Left Abdomen 3 15 5 Left Abdomen 4 5 2 Right Abdomen 1 20 15 Right Abdomen 2 20 10 Void Amount 900 300 100 Other: Meal Dinner Percent of Meal Consumed 75% Urine Appearance Clear Clear Urine Color Bright Yellow Bright Yellow Urine Odor Normal Normal Stool Size Moderate Stool Color Brown Stool Consistency Soft # Bowel Movements 1 Exam: General: awake, no acute Distress Eyes/N/T: EOMI Head/Neck: neck supple, normocephalic atraumatic CV: RRR, No murmurs, Pulm: clear b/l, no wheezing Abd: soft, +BSD, binder in place, drains in place Ext: no clubbing/cyanosis, mild b/l LE edema Neuro: Awake. no focal deficits, moves all extremities Skin: warm/dry Medical - PN: Obj Da - Labs CBC & Chem 7: 01/29/19 04:22 02/01/19 04:40 Labs: Abnormal Lab Results 02/01/19 01/31/19 01/30/19 04:40 04:15 14:51 Sodium 146 H Potassium 3.1 L 3.0 L Creatinine 1.2 H Glucose 106 H Calcium 8.5 L Phosphorus GGT 190 H Alkaline Phosphatase 195 H Albumin 3.0 L Albumin/Globulin Ratio Triglycerides 166 H 01/30/19 04:00 Sodium 147 H Potassium 2.6 L* Creatinine Glucose Calcium 8.3 L Phosphorus 2.2 L GGT 191 H Alkaline Phosphatase 200 H Albumin 2.8 L Albumin/Globulin Ratio 0.9 L Triglycerides 158 H Meds: Medications Albuterol/Ipratropium (Duoneb) 3 ml NEB Q6HRT [facility] Last Admin: 02/01/19 00:11 Dose: 3 ml Documented by: Alprazolam (Xanax) 1 mg PO DAILY [facility] Last Admin: 01/31/19 08:56 Dose: 1 mg Documented by: Amlodipine Besylate (Norvasc) 5 mg PO DAILY [facility] Last Admin: 01/31/19 08:56 Dose: 5 mg Documented by: Budesonide (Pulmicort) 0.5 mg NEB Q12 [facility] Last Admin: 01/31/19 19:11 Dose: 0.5 mg Documented by: Chlorhexidine Gluconate (Peridex) 15 ml SWABMOUTH BID [facility] Last Admin: 01/31/19 20:28 Dose: 15 ml Documented by: Enoxaparin Sodium (Lovenox) 40 mg SQ BID [facility] Last Admin: 01/31/19 20:24 Dose: 40 mg Documented by: Famotidine (Pepcid) 20 mg IV Q12 [facility] Last Admin: 01/31/19 20:18 Dose: 20 mg Documented by: Heparin Sodium (Porcine) (Heparin Flush) 2 ml IV Q12 [facility] Last Admin: 01/31/19 20:19 Dose: 2 ml Documented by: Hydromorphone HCl (Dilaudid) 1 mg IV Q2HP PRN PRN Reason: PAIN LEVEL > 6 Last Admin: 01/31/19 03:00 Dose: 1 mg Documented by: Labetalol HCl (Trandate) 0 mg IV Q2HP PRN PRN Reason: Hypertension Lorazepam (Ativan) 0.5 mg IV Q4HP PRN PRN Reason: ANXIETY/SEDATION Metoclopramide HCl (Reglan) 10 mg IV Q6 [facility] Last Admin: 02/01/19 06:04 Dose: 10 mg Documented by: Metoprolol Tartrate (Lopressor) 5 mg IV Q4HP PRN PRN Reason: Tachyarrhythmias Nicotine (Nicoderm) 21 mg TOPICAL DAILY@1000 [facility] Last Admin: 01/31/19 08:57 Dose: 21 mg Documented by: Oxycodone HCl (Roxicodone) 10 mg PO Q4HP PRN PRN Reason: PAIN LEVEL 3-6 Last Admin: 01/31/19 17:33 Dose: 10 mg Documented by: Aripiprazole 2 Mg (Tablet) 1 dose PO HS [facility] Last Admin: 01/31/19 20:25 Dose: 1 dose Documented by: Promethazine HCl (Phenergan) 12.5 mg IV Q4HP PRN PRN Reason: Nausea And Vomiting Sodium Chloride (Saline Flush) 10 ml IV Q8 [facility] Last Admin: 02/01/19 06:04 Dose: 10 ml Documented by: Sodium Chloride (Saline Flush) 10 ml IV Q12 [facility] Last Admin: 01/31/19 20:18 Dose: 10 ml Documented by: Medical - PN: A/P - Time Spent With Patient Total time spent is greater than 50% in coordination of care (as documented) at patient's floor/unit and/or counseling patient: - Narrative A/P Narrative: A: *Acute hypoxic/hypercapnic respiratory failure: in setting of underlying COPD & KANU with volume overload -EKG with some ST depression v5-6 but similar on prior EKG although less pronounced, Trop negative -PCT low, no bandemia/fevers -continues to improve, extubated (01/29), now on 1L NC *Volume overload: improved -Preop echo with no significant abnormalities -elevated BNP -f/u CXR improving infiltrates, good diuresis *Atelectasis, moderate: *Hypotension: post RSI and then again with propofol. Resolved -off vasopressors @0230 (01/29) *HTN post-op: likely 2/2 pain/anxiety + likely essential HTN and could have been contributor to pulmonary edema -no home meds, she state SBP 150's at home -better controlled *COPD (not on home oxygen): *KANU with CPAP: *Obesity: *Anxiety with panic attacks/depression: *Heart rate at home per family runs 80-100 *h/o colon cancer with subsequent surgery and postoperative PE: Was on warfarin for a year *Incisional hernia: Status post repair with lysis of adhesions (01/25) *Hypernatremia, mild: diuretics + isotonic fluids, resolved *Hypokalemia: resolved P: -diet per surgery -wean O2 -IS hourly -replete potassium prn -started norvasc, d/c with script -i/o's, weights -israel/prn nebs -ppx: lovenox/h2 Procedures - Arterial Line Size (Gauge): 20
[2019-02-01] MEDS: BUDESONIDE 0.5 MG/2 ML AMPUL.NEB NEB SCH (07:07)
[2019-02-01] MEDS: oxyCODONE HCL 5 MG TABLET PO PRN ×2 (08:01→12:33)
--- NOTE | 2019-02-01 08:03 | XRay Report ---
CLINICAL INFORMATION: Mechanically Ventilated COMPARISON: 01/31/2019 FINDINGS: Heart size, mediastinum and pulmonary vessels are normal. Right basilar infiltrate and effusion have resolved. There is minor atelectasis left base which is unchanged. PICC line tip overlies the lateral left subclavian vein as before IMPRESSION: Interval resolution of small right basilar infiltrate/effusion. Negative exam Interpreted and Authenticated by: Shane Barajas 02/01/19
--- NOTE | 2019-02-01 08:06 | Operative Note ---
DATE OF OPERATION: 01/25/2019 PREOPERATIVE DIAGNOSIS: Major incisional hernia. POSTOPERATIVE DIAGNOSIS: Incisional hernia from xiphoid to pubis. PROCEDURES: 1. Incisional hernia repair with mesh graft encompassing the entire anterior abdominal wall. 2. Bilateral separation of components from costal margin to iliac crest. 3. Extensive lysis of adhesions. SURGEON: Lin Medrano MD FINDINGS: 1. Major adhesions of the entire peritoneal cavity. 2. 16 cm transverse fascial defect extending from xiphoid to pubis. 3. Marked retraction of midline fascia bilaterally. DESCRIPTION OF PROCEDURE: Under general anesthesia, the patient's abdomen was prepped and draped in a sterile field. A time-out procedure was carried out as per protocol. The old incision was opened and the viscera was immediately below the skin. Care was taken to separate the bowel, omentum and mesentery from the overlying pseudoperitoneum. This dissection was carried out back to the lateral border of the rectus abdominis. The omentum was then from the underlying bowel in order to get it to lay permastone installer in the peritoneal cavity. This required extensive dissection. There were major adhesions of the entire peritoneal cavity. The fascia had retracted significantly and could not be pulled back to the midline. It was therefore necessary to do bilateral separation of components, the lateral border of the rectus abdominis, anterior fascia from the junction with the obliques. This separation was carried out from costal margin to the iliac crest inferiorly. Once this was done, the muscle was gently pulled towards the midline and it was felt that the graft could be placed with only mild tension. A large 22 x 26 cm Surgimesh graft was positioned. Care was taken to try to make sure that the graft rested on the omentum rather than the bowel. This graft did not have a coated posterior wall. The graft was sutured in place using interrupted 0 Prolene. Once the Prolene was in place, the graft was sutured to the undersurface of the muscle using SecureStrap graft tacks. The sutures were then tied securely but not tightly. The fascia was closed over a DAYNE drain using interrupted #1 Prolene. Irrigation was carried out and the subcutaneous plane was drained with two DAYNE drains and was closed in the midline using 2-0 Monocryl. The skin was closed with iliana. Drains were secured with 2-0 nylon. Tegaderm dressings were placed. The patient was awakened from anesthesia, transferred to a bed and taken to the postanesthetic care unit in satisfactory condition. LCS:cricket Job ID: [id number] Doc ID: [id number] Lin Medrano M.D.
[2019-02-01] MEDS ORDERED: LEVOTHYROXINE 50 MCG TABLET PO SCH (08:15)
[2019-02-01] MEDS: amLODIPine 5 MG TABLET PO SCH (08:48)
[2019-02-01] MEDS: ALPRAZolam 0.5 MG TABLET PO SCH (08:48)
[2019-02-01] MEDS: FAMOTIDINE/PF 20 MG/2 ML VIAL IV SCH (08:49)
[2019-02-01] MEDS: ENOXAPARIN 40 MG/0.4 ML SYRINGE SQ SCH (08:49)
[2019-02-01] MEDS: CHLORHEXIDINE GLUCONATE 1 ML ORAL.SOL SWABMOUTH SCH (08:50)
[2019-02-01] MEDS ORDERED: busPIRone 5 MG TABLET PO SCH (09:00)
[2019-02-01] MEDS ORDERED: DULoxetine 30 MG CAPSULE PO SCH (09:00)
[2019-02-01] MEDS: NICOTINE 21 MG PATCH TOPICAL SCH (10:43)
--- NOTE | 2019-02-01 11:55 | Discharge Summary ---
Providers - Providers Patient information: Note initiated : 02/01/19 at 11:52 am Service Date, if different from initiated Date: [] Patient: Jennifer Gama 78 y/o F admitted on 01/25/19 for Incisional Hernia Repair, Bilateral Seperation of . Chief Complaint: [] Date of admission: 01/25/19 Discharge date: 02/01/19 dr. DELVIN LANDRY,HOSPITALIST Hospitalization Hospital Course: 78-year-old female admitted after a major repair of a large incisional hernia. The patient needed to have incisional hernia repair with bilateral separation of components and extensive lysis of adhesions. Her surgery progressed uneventfully. 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 Her BNP increased to 13,038. Her chest x- ray showed increased alveolar infiltrates much worse on the right than on the left. She was aggressively diuresed and improved. She was able to be extubated on 29 January after vigorous diuresis. Her diet was advanced as her intestinal activity improved. By 31 January her lungs were clear and chest x- ray showed clearing of infiltrates. At this time she is stable except she does have decreased oxygen saturations 87% range on room air. It drops to lower Levels when she is asleep. She is otherwise clinically stable and is transferred to [facility] facility for continued physical and occupational therapy. Discharge diagnosis: incisional hernia Secondary discharge diagnosis: Multiple intra-abdominal adhesions Acute exacerbation of chronic obstructive lung disease Acute respiratory failure Acute pulmonary edema Major depressive disorder Generalized anxiety disorder Chronic obstructive sleep apnea Reason for admission: postoperative surgical treatment of major incisional hernia with extensive Procedures: Exploratory laparotomy with incisional hernia repair with large mesh graft Bilateral separation of muscle components from costal margin to the iliac crests Pertinent studies/significant findings: None Complications: Acute respiratory failure postoperatively Exam Temp Pulse Resp BP Pulse Ox 98.4 F 105 H 18 151/75 94 02/01/19 08:00 02/01/19 08:00 02/01/19 08:00 02/01/19 08:00 02/01/19 08:00 - General physical appearance well developed, well nourished, no distress, moderate pain - Eyes PERRL, normal ocular movement - ENT normal pinna, normal nares, normal mucosa, no hearing loss, no congestion - Head Head exam IM: Present: atraumatic, normocephalic - Neck no masses, no bruits, trachea midline, no lymphadenopathy, no venous distension - Cardiovascular Cardiovascular exam IM: Present: normal rate and rhythm - Respiratory normal expansion, normal respiratory effort, clear to auscultation, other (no rales rubs rhonchi or wheezes noted) - Abdomen Abdomen: Present: bowel sounds, distended ( abdomen is mildly distended; good active bowel sounds; incision is healing nicely; DAYNE drains with serosanguineous drainage;; no evidence of infection) Hernia: Present: none - Genitourinary Present: normal external genitalia - Integumentary Present: no rash, no growths, no abnormal pigmentation - Neurologic Present: normal coordination, normal sensation - Musculoskeletal Present: normal gait, normal posture - Psychiatric Present: oriented to time, oriented to person, oriented to place, speech is normal, memory intact Discharge Plan - Patient/Caregiver Discharge Instructions Activity: as per physical therapy, other ( were BiPAP at night) Diet: Regular Diet Prescriptions: RX: Mirtazapine [Remeron] 15 mg PO QHS #30 tab Prescription Printed RX: busPIRone [Buspar] 2.5 mg PO BID #30 tab Prescription Printed RX: busPIRone [Buspar] 2.5 mg PO BID #90 tab Prescription Printed RX: DULoxetine [Cymbalta] 30 mg PO BID #60 cap Prescription Printed RX: DULoxetine HCL [Cymbalta] 30 mg PO BID #180 cap Prescription Printed RX: Mirtazapine [Remeron] 15 mg PO HS #30 tablet RX: oxyCODONE HCL [Roxicodone] 10 mg PO Q4HP PRN #60 tab PRN Reason: Pain Level 3-6 Prescription Printed RX: ALPRAZolam [Xanax] 1 mg PO DAILY #30 tab Prescription Printed - Follow up Plan Disposition: Xfer SNF Prognosis: Good Rehab Potential: Good I certify that the patient requires SNF services.: Yes Overall status at discharge: patient is not back to baseline Pending Studies Resuscitation Status Full Code Diet GI Soft/Transitional Start WedJan 30 1630 Albuterol/Ipratropium (Duoneb) 3 ml NEB Q6HRT [facility] Last Admin: 02/01/19 07:07 Dose: 3 ml Documented by: Admin: 02/01/19 00:11 Dose: 3 ml Documented by: Admin: 01/31/19 19:11 Dose: 3 ml Documented by: Admin: 01/31/19 13:34 Dose: 3 ml Documented by: Admin: 01/31/19 07:41 Dose: 3 ml Documented by: Admin: 01/31/19 00:22 Dose: 3 ml Documented by: Admin: 01/30/19 19:05 Dose: 3 ml Documented by: ROMARIO Alprazolam (Xanax) 1 mg PO DAILY [facility] Last Admin: 02/01/19 08:48 Dose: 1 mg Documented by: [email or web address] Admin: 01/31/19 08:56 Dose: 1 mg Documented by: [email or web address] Amlodipine Besylate (Norvasc) 5 mg PO DAILY [facility] Last Admin: 02/01/19 08:48 Dose: 5 mg Documented by: Cecil Admin: 01/31/19 08:56 Dose: 5 mg Documented by: [email or web address] Budesonide (Pulmicort) 0.5 mg NEB Q12 [facility] Last Admin: 02/01/19 07:07 Dose: 0.5 mg Documented by: Admin: 01/31/19 19:11 Dose: 0.5 mg Documented by: Admin: 01/31/19 07:41 Dose: 0.5 mg Documented by: Admin: 01/30/19 19:03 Dose: 0.5 mg Documented by: ROMARIO Buspirone HCl (Buspar) 2.5 mg PO BID [facility] Last Admin: 02/01/19 08:48 Dose: 2.5 mg Documented by: [email or web address] Chlorhexidine Gluconate (Peridex) 15 ml SWABMOUTH BID [facility] Last Admin: 02/01/19 08:50 Dose: 15 ml Documented by: [email or web address] Admin: 01/31/19 20:28 Dose: 15 ml Documented by: Admin: 01/31/19 08:57 Dose: 15 ml Documented by: [email or web address] Admin: 01/30/19 20:35 Dose: 15 ml Documented by: FLOR Duloxetine HCl (Cymbalta) 30 mg PO BID [facility] Last Admin: 02/01/19 08:48 Dose: 30 mg Documented by: [email or web address] Enoxaparin Sodium (Lovenox) 40 mg SQ BID [facility] Last Admin: 02/01/19 08:49 Dose: 40 mg Documented by: [email or web address] Admin: 01/31/19 20:24 Dose: 40 mg Documented by: Admin: 01/31/19 08:56 Dose: 40 mg Documented by: [email or web address] Admin: 01/30/19 20:35 Dose: 40 mg Documented by: FLOR Famotidine (Pepcid) 20 mg IV Q12 [facility] Last Admin: 02/01/19 08:49 Dose: 20 mg Documented by: [email or web address] Admin: 01/31/19 20:18 Dose: 20 mg Documented by: Admin: 01/31/19 08:55 Dose: 20 mg Documented by: [email or web address] Admin: 01/30/19 20:28 Dose: 20 mg Documented by: FLOR Heparin Sodium (Porcine) (Heparin Flush) 2 ml IV Q12 [facility] Last Admin: 02/01/19 08:49 Dose: 2 ml Documented by: [email or web address] Admin: 01/31/19 20:19 Dose: 2 ml Documented by: Admin: 01/31/19 08:57 Dose: 2 ml Documented by: [facility] Admin: 01/30/19 20:28 Dose: 2 ml Documented by: FLOR Hydromorphone HCl (Dilaudid) 1 mg IV Q2HP PRN PRN Reason: PAIN LEVEL > 6 Last Admin: 01/31/19 03:00 Dose: 1 mg Documented by: Admin: 01/30/19 20:23 Dose: 1 mg Documented by: FLOR Levothyroxine Sodium (Synthroid) 50 mcg PO QAMAC [facility] Last Admin: 02/01/19 08:48 Dose: 50 mcg Documented by: [email or web address] Metoclopramide HCl (Reglan) 10 mg IV Q6 [facility] Last Admin: 02/01/19 06:04 Dose: 10 mg Documented by: Admin: 02/01/19 00:12 Dose: 10 mg Documented by: Admin: 01/31/19 17:38 Dose: 10 mg Documented by: [email or web address] Admin: 01/31/19 11:44 Dose: 10 mg Documented by: [email or web address] Admin: 01/31/19 06:43 Dose: 10 mg Documented by: Admin: 01/31/19 00:22 Dose: 10 mg Documented by: Admin: 01/30/19 18:45 Dose: 10 mg Documented by: JOSÉ Nicotine (Nicoderm) 21 mg TOPICAL DAILY@1000 [facility] Last Admin: 02/01/19 10:43 Dose: 21 mg Documented by: [email or web address] Admin: 01/31/19 08:57 Dose: 21 mg Documented by: [email or web address] Oxycodone HCl (Roxicodone) 10 mg PO Q4HP PRN PRN Reason: PAIN LEVEL 3-6 Last Admin: 02/01/19 08:01 Dose: 10 mg Documented by: [email or web address] Admin: 01/31/19 17:33 Dose: 10 mg Documented by: [email or web address] Admin: 01/31/19 11:53 Dose: 10 mg Documented by: [email or web address] Aripiprazole 2 Mg (Tablet) 1 dose PO HS [facility] Last Admin: 01/31/19 20:25 Dose: 1 dose Documented by: Admin: 01/30/19 20:27 Dose: 1 dose Documented by: FLOR Sodium Chloride (Saline Flush) 10 ml IV Q8 [facility] Last Admin: 02/01/19 06:04 Dose: 10 ml Documented by: Admin: 01/31/19 20:19 Dose: 10 ml Documented by: Admin: 01/31/19 14:27 Dose: 10 ml Documented by: [facility] Admin: 01/31/19 06:43 Dose: 10 ml Documented by: Admin: 01/30/19 20:25 Dose: 10 ml Documented by: FLOR Sodium Chloride (Saline Flush) 10 ml IV Q12 [facility] Last Admin: 02/01/19 08:49 Dose: 10 ml Documented by: [email or web address] Admin: 01/31/19 20:18 Dose: 10 ml Documented by: Admin: 01/31/19 08:57 Dose: 10 ml Documented by: [facility] Admin: 01/30/19 20:28 Dose: 10 ml Documented by: FLOR Shift Summary 02/01/19 03:05 Shift Summary by Sharri Perez slept most of the night. Has been up to BSC w/SBA for voids. Passing flatus, no BM tonight. Abd dressing CDI; binder in place. DAYNE drains x4 putting our scant serosanguineous drainage. Oxygen at 1L keeping sats 91-92% when awake. CPAP w/2L on when sleeping to keep sats over 90%. Tolerating reg diet w/o nausea. Midline to left arm patent w/good blood return. SL to right arm still patent as well. No PRN meds tonight. Initialized on 02/01/19 03:05 - END OF NOTE
[2019-02-01] MEDS ORDERED: MIRTAZAPINE 15 MG TABLET PO SCH (21:00)
== END 2019-02-01 14:35 | DRG 335 ==
LOC: MEDSUR 08:08 → ICU 01-28 03:26 → MEDSUR 01-30 18:00
PROVIDERS: ADMIT Family Medicine Adult Medicine; ATTEND Family Medicine Adult Medicine

== ENCOUNTER 2019-07-13 14:57 | Inpatient (IN) ==
[2019-07-13] MEDS ORDERED: ONDANSETRON 4 MG/2 ML VIAL IV PRN ×2 (15:00→15:56)
[2019-07-13] MEDS ORDERED: HYDROmorphone 2 MG/ML VIAL IV PRN ×2 (15:00→15:56)
[2019-07-13] MEDS ORDERED: VANCOMYCIN PER PHARMACY IV SCH (15:15)
[2019-07-13] MEDS ORDERED: VANCOMYCIN 1,000 MG in 0.9 % SODIUM CHLORIDE 250 ML IV SCH (15:15)
--- NOTE | 2019-07-13 15:34 | XRay Report ---
HISTORY: Preop for abdominal wall abscess FINDINGS: The lungs are clear. The heart, mediastinum, rogelio and pleura are normal. No free intra-abdominal air is present. There is arthritis in the lower neck. IMPRESSION: Normal chest. Interpreted and Authenticated by: Henri Fajardo 07/13/19
[2019-07-13] MEDS ORDERED: PIPERACILLIN SODIUM/TAZOBACTAM 3.375 GM in DEXTROSE 5% IN WATER 50 ML IV SCH (16:00)
[2019-07-13 16:09] LABS: Hematocrit 37.1 % (34.1-44.9); Hemoglobin 11.9 g/dL (11.2-15.7); Mean Cell Volume 86.7 fL (80.0-100.0); Mean Corpuscular HGB Conc 32.1 g/dL (31.0-36.0); Mean Platelet Volume 9.3 fL (7.4-10.4); Platelet Count 467 K/mcL (140-440); RBC 4.28 M/mcL (3.59-5.38); Red Cell Distribution Width 14.6 % (11.5-14.5); WBC 9.9 K/mcL (4.50-11.00)
[2019-07-13 16:28] LABS: ALT/SGPT 15 U/l (0-40); AST/SGOT 19 U/l (0-37); Albumin 3.9 gm/dL (3.2-5.2); Albumin/Globulin Ratio 0.9 (1.0-2.3); Alkaline Phosphatase 185 U/L (39-117); Bilirubin,Direct < 0.2 mg/dL (0.0-0.3); Bilirubin,Total 0.2 mg/dL (0.0-1.0); Blood Urea Nitrogen 14 mg/dl (8-23); Calcium 9.4 mg/dl (8.6-10.4); Carbon Dioxide 22 mmol/L (22-30); Chloride 102 mmol/L (96-108); Globulin 4.2 gm/dL (2.2-3.7); Glomerular Filtration Rate 43; Glucose 101 mg/dL (70-105); Lactate Dehydrogenase 268 U/L (94-250); Phosphorous 3.8 mg/dL (2.7-4.5); Triglycerides 149 mg/dl (<150); Uric Acid 5.7 mg/dL (2.5-8.0)
[2019-07-13 16:45] LABS: Band Neutrophils % 1 % (0-10); Basophils % (Manual) 1 % (0-2); Eosinophils % (Manual) 5 % (0-7); Lymphocytes % 21 % (15-49); Monocytes % (Manual) 3 % (1-12); Platelet Estimate INCREASED (NORMAL); RBC Morphology NORMAL (NORMAL); Segmented Neutrophils % 69 % (38-78)
[2019-07-13 17:11] LABS: Erythrocyte Sedimentation Rate 112 mm/hr (0-20)
[2019-07-13] MEDS ORDERED: IOPAMIDOL 100 ML BOTTLE IV ONE (17:13)
--- NOTE | 2019-07-13 17:49 | Cat Scan Report ---
History: Abdominal wall abscess TECHNIQUE: The patient was imaged following intravenous and oral contrast scanning from the diaphragm to the symphysis pubis. Sagittal and coronal reformats are created. The radiation exposure was limited using dose reduction technology. FINDINGS: There is a complex multiloculated irregularly shaped fluid collection in the anterior abdominal wall. There is enhancement along the periphery of the multiple small pockets of fluid. There is also inflammation of the adjacent subcutaneous fat. The superior aspect is at the level of the inferior border of the left lobe of the liver. This extends inferiorly to the level of the midpelvis. Measures up to 1.7 cm in greatest thickness, 10 cm in width and approximately 24 cm in length. No intrapelvic inflammation is present. Patient has no ascites or intra-abdominal abscess. This fluid collection had previously been surgically drained. The previously seen drainage catheter has been removed since 02/22/19. It contains no air at this time. Postoperative changes are seen following prior resection of the proximal large intestine. There is no inflammation or obstruction at the anastomosis. There are few small cysts in the liver. There is mild dilatation of the internal extrahepatic bile ducts. The gallbladder has been removed. The spleen, pancreas and adrenals are normal. There is a small cyst in left kidney. The kidneys are otherwise normal. Aorta is normal in caliber and has a moderate amount of plaque. No adenopathy is present. The uterus and ovaries are atrophic. Urinary bladder appears normal. IMPRESSION: Moderate size multiloculated abscess in the anterior abdominal and upper pelvic wall. Interpreted and Authenticated by: Henri Fajardo 07/13/19
[2019-07-13] MEDS: VANCOMYCIN 1,500 MG in 0.9 % SODIUM CHLORIDE 500 ML IV SCH (18:00)
[2019-07-13] MEDS: PIPERACILLIN SODIUM/TAZOBACTAM 3.375 GM in DEXTROSE 5% IN WATER 50 ML IV SCH (20:41)
[2019-07-13] MEDS: DOCUSATE SODIUM 100 MG CAPSULE PO SCH (20:45)
[2019-07-13] MEDS: HEPARIN 5,000 UNIT/ML VIAL SQ SCH (20:46)
[2019-07-13] MEDS: 0.9 % SODIUM CHLORIDE 10 ML SYRINGE IV SCH (20:46)
[2019-07-13] MEDS ORDERED: DOCUSATE SODIUM 100 MG CAPSULE PO SCH (21:00)
[2019-07-13] MEDS ORDERED: HEPARIN 5,000 UNIT/ML VIAL SQ SCH (21:00)
[2019-07-13] MEDS ORDERED: SENNOSIDES 1 TABLET PO SCH ×2 (21:00)
[2019-07-13] MEDS: LACTATED RINGERS 1,000 ML IV SCH (21:43)
[2019-07-13] MEDS ORDERED: 0.9 % SODIUM CHLORIDE 10 ML SYRINGE IV SCH (22:00)
[2019-07-13] MEDS ORDERED: ALPRAZolam 0.5 MG TABLET PO ONE (23:08)
[2019-07-13] MEDS ORDERED: ALPRAZolam 0.5 MG TABLET ONE (23:21)
[2019-07-14] MEDS: PIPERACILLIN SODIUM/TAZOBACTAM 3.375 GM in DEXTROSE 5% IN WATER 50 ML IV SCH ×5 (00:20→23:59)
[2019-07-14] MEDS: 0.9 % SODIUM CHLORIDE 10 ML SYRINGE IV SCH ×3 (05:09→21:06)
[2019-07-14 07:50] LABS: Appearance,Urine CLEAR; Bilirubin,Urine NEG (NEG); Color,Urine STRAW; Culture Indicated,Urine NO; Glucose,Urine (UA) NEGATIVE (NEG); Ketones,Urine NEG (NEG); Leukocyte Esterase,Urine NEG /uL (NEG); Nitrate,Urine NEG (NEG); Protein,Urine NEG (NEG); Specific Gravity,Urine 1.024 (1.000-1.035); Urine Blood NEG mg/dL (<0.03); Urobilinogen,Urine NEG (NEG)
[2019-07-14] MEDS ORDERED: ALPRAZolam 0.5 MG TABLET PO SCH (09:00)
[2019-07-14] MEDS ORDERED: FLUTICASONE/SALMETEROL 500/50 INHALER #14 INH SCH ×2 (09:00→21:00)
[2019-07-14] MEDS ORDERED: busPIRone 5 MG TABLET PO SCH (09:00)
[2019-07-14] MEDS ORDERED: SUCCINYLCHOLINE 20 MG/ML ML IV ONE (09:25)
[2019-07-14] MEDS ORDERED: fentaNYL 250 MCG/5 ML VIAL IV ONE (09:25)
[2019-07-14] MEDS ORDERED: DEXAMETHASONE 10 MG/ML VIAL IV ONE (09:25)
[2019-07-14] MEDS ORDERED: PROPOFOL 200 MG/20 ML VIAL IV ONE (09:25)
[2019-07-14] MEDS ORDERED: ROCURONIUM 10 MG/ML ML IV ONE (09:25)
[2019-07-14] MEDS ORDERED: LIDOCAINE HCL/PF 100 MG/5 ML SYRINGE IV ONE (09:25)
[2019-07-14] MEDS ORDERED: SUGAMMADEX SODIUM 200 MG/2 ML VIAL IV ONE (09:25)
[2019-07-14] MEDS ORDERED: ONDANSETRON 4 MG/2 ML VIAL IV ONE (09:25)
[2019-07-14] MEDS ORDERED: fentaNYL 100 MCG/2 ML VIAL IV PRN (10:14)
[2019-07-14] MEDS ORDERED: ACETAMINOPHEN 1,000 MG/100 ML BOTTLE IV ONE (10:14)
[2019-07-14] MEDS ORDERED: NALOXONE HCL 0.4 MG/ML VIAL IV PRN (10:14)
[2019-07-14] MEDS ORDERED: ONDANSETRON 4 MG/2 ML VIAL IV PRN ×2 (10:14→11:34)
[2019-07-14] MEDS ORDERED: diphenhydrAMINE 50 MG/ML VIAL IV PRN (10:14)
[2019-07-14] MEDS ORDERED: PROMETHAZINE 25 MG/ML VIAL IV PRN (10:14)
[2019-07-14] MEDS ORDERED: MEPERIDINE 25 MG/ML SYRINGE IV PRN (10:14)
[2019-07-14] MEDS ORDERED: LACTATED RINGERS 250 ML IV PRN (10:14)
[2019-07-14] MEDS ORDERED: IPRATROPIUM/ALBUTEROL 3 ML AMPUL.NEB NEB PRN (10:14)
[2019-07-14] MEDS ORDERED: LACTATED RINGERS 1,000 ML IV SCH (10:15)
--- NOTE | 2019-07-14 10:49 | Brief Operative Note ---
Date of procedure: 07/14/19 Pre-op diagnosis: cellulitis of abdominal wall with abscess Post-op diagnosis: other (cellulitis of abdominal wall with abscess) Procedure: excisional debridement of abscess of abdominal wall(14x8x2.5 cm )with excision of skin subcutaneous fat and fascia wound vac placement Grafts/Implants: No Anesthesia: GETA Findings: central infection of infraumbilical mid line extending down to mesh with small amount of turbid fluid Complications: none Surgeon: Lin Medrano Specimens Removed/Pathology: other (culture of drainage fro m depyh of wound) Disposition: PACU
[2019-07-14] MEDS ORDERED: HYDROmorphone 2 MG/ML VIAL IV PRN (11:34)
[2019-07-14] MEDS ORDERED: ALBUTEROL SULFATE 1 PUFF INHALER INH PRN (11:34)
[2019-07-14] MEDS ORDERED: VANCOMYCIN PER PHARMACY IV SCH (11:34)
[2019-07-14] MEDS: LACTATED RINGERS 1,000 ML IV SCH ×3 (11:42→23:59)
[2019-07-14] MEDS: DOCUSATE SODIUM 100 MG CAPSULE PO SCH ×2 (11:43→21:01)
[2019-07-14] MEDS: HEPARIN 5,000 UNIT/ML VIAL SQ SCH ×2 (11:43→21:01)
[2019-07-14] MEDS: VANCOMYCIN 1,500 MG in 0.9 % SODIUM CHLORIDE 500 ML IV SCH (11:44)
[2019-07-14] MEDS: oxyCODONE HCL 5 MG TABLET PO PRN (19:12)
[2019-07-14] MEDS: BUDESONIDE 0.5 MG/2 ML AMPUL.NEB NEB SCH (19:46)
[2019-07-14] MEDS: FLUTICASONE/SALMETEROL 500/50 INHALER #14 INH SCH (19:51)
[2019-07-14] MEDS: FORMOTEROL FUMARATE 20 MCG/2 ML INH SCH (19:53)
[2019-07-14] MEDS ORDERED: BUSPIRONE PO SCH (21:00)
[2019-07-14] MEDS ORDERED: ARIPIPRAZOLE 1 MG PO SCH ×2 (21:00)
[2019-07-14] MEDS ORDERED: MIRTAZAPINE 15 MG TABLET PO SCH (21:00)
[2019-07-14] MEDS ORDERED: MIRTAZAPINE 15 MG PO SCH (21:00)
[2019-07-14] MEDS: busPIRone 5 MG TABLET PO SCH (21:01)
[2019-07-14] MEDS: MIRTAZAPINE 15 MG TABLET PO SCH (21:01)
[2019-07-14] MEDS: DULoxetine 30 MG CAPSULE PO SCH (21:01)
[2019-07-14] MEDS: SENNOSIDES 1 TABLET PO SCH (21:02)
[2019-07-14] MEDS: ARIPIPRAZOLE 2 MG TABLET PO SCH (21:02)
[2019-07-15] MEDS: ALPRAZolam 0.5 MG TABLET PO SCH ×2 (04:39→08:53)
[2019-07-15] MEDS: PIPERACILLIN SODIUM/TAZOBACTAM 3.375 GM in DEXTROSE 5% IN WATER 50 ML IV SCH ×4 (05:55→23:23)
[2019-07-15] MEDS: 0.9 % SODIUM CHLORIDE 10 ML SYRINGE IV SCH ×3 (05:56→20:28)
[2019-07-15] MEDS: LACTATED RINGERS 1,000 ML IV SCH ×3 (06:46→18:11)
[2019-07-15] MEDS: oxyCODONE HCL 5 MG TABLET PO PRN ×3 (06:51→19:34)
[2019-07-15] MEDS: LEVOTHYROXINE 50 MCG TABLET PO SCH (06:51)
[2019-07-15 07:43] LABS: Basophils # (Auto) 0.03 K/mcL (0.00-0.30); Basophils % (Auto) 0.4 % (0.0-2.0); Eosinophils # (Auto) 0 K/mcL (0.00-0.70); Eosinophils % (Auto) 0 % (0.0-7.0); Granulocytes % (Auto) 78.3 % (38.0-78.0); Hemoglobin 11.1 g/dL (11.2-15.7); Lymphocytes # (Auto) 1.35 K/mcL (1.50-4.80); Lymphocytes % (Auto) 16.1 % (15.5-49.0); Mean Cell Volume 88.2 fL (80.0-100.0); Mean Corpuscular HGB Conc 30.8 g/dL (31.0-36.0); Mean Platelet Volume 9.4 fL (7.4-10.4); Monocytes # (Auto) 0.44 K/mcL (0.10-0.90); Monocytes % (Auto) 5.2 % (1.0-12.0); Platelet Count 440 K/mcL (140-440); RBC 4.08 M/mcL (3.59-5.38); Red Cell Distribution Width 14.2 % (11.5-14.5); WBC 8.4 K/mcL (4.50-11.00)
[2019-07-15 08:24] LABS: ALT/SGPT 14 U/l (0-40); AST/SGOT 17 U/l (0-37); Albumin 3.3 gm/dL (3.2-5.2); Albumin/Globulin Ratio 0.9 (1.0-2.3); Alkaline Phosphatase 163 U/L (39-117); Bilirubin,Direct < 0.2 mg/dL (0.0-0.3); Bilirubin,Total 0.2 mg/dL (0.0-1.0); Blood Urea Nitrogen 14 mg/dl (8-23); Calcium 9.3 mg/dl (8.6-10.4); Carbon Dioxide 25 mmol/L (22-30); Chloride 104 mmol/L (96-108); Globulin 3.6 gm/dL (2.2-3.7); Glomerular Filtration Rate 61; Glucose 108 mg/dL (70-105); Lactate Dehydrogenase 277 U/L (94-250); Triglycerides 142 mg/dl (<150); Uric Acid 3.8 mg/dL (2.5-8.0)
[2019-07-15] MEDS: busPIRone 5 MG TABLET PO SCH ×2 (08:53→19:34)
[2019-07-15] MEDS: FLUTICASONE/SALMETEROL 500/50 INHALER #14 INH SCH ×2 (08:53→19:39)
[2019-07-15] MEDS: HEPARIN 5,000 UNIT/ML VIAL SQ SCH ×2 (08:53→19:33)
[2019-07-15] MEDS: DOCUSATE SODIUM 100 MG CAPSULE PO SCH ×2 (08:53→19:34)
[2019-07-15] MEDS: DULoxetine 30 MG CAPSULE PO SCH ×2 (08:53→19:34)
[2019-07-15] MEDS ORDERED: ALPRAZOLAM 1 MG PO SCH (09:00)
[2019-07-15] MEDS: BUDESONIDE 0.5 MG/2 ML AMPUL.NEB NEB SCH ×2 (09:13→21:08)
[2019-07-15] MEDS: FORMOTEROL FUMARATE 20 MCG/2 ML INH SCH ×2 (09:18→19:39)
[2019-07-15] MEDS: VANCOMYCIN 1,500 MG in 0.9 % SODIUM CHLORIDE 500 ML IV SCH (09:33)
--- NOTE | 2019-07-15 12:13 | General Surgery Progress Note ---
Subjective Patient reports: feels better, pain is less, flatus, bowel movement, afebrile Narrative: Note initiated : 07/15/19 at 12:13 pm Service Date, if different from initiated Date: [] Patient: Jennifer Gama 78 y/o F admitted on 07/13/19 for Abdominal Wall Abscess. Chief Complaint: [] Patient states that she feels better. She has less discomfort. She has very small amount of bloody drainage but minimal purulence. 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 Objective Temp Pulse Resp BP Pulse Ox 97.9 F 92 H 16 135/67 94 07/15/19 11:48 07/15/19 09:14 07/15/19 11:48 07/15/19 11:48 07/15/19 07:43 - Additional Data Intake & Output - Last 24 hours: Intake & Output 07/13/19 07/14/19 07/15/19 07/16/19 05:59 05:59 05:59 06:59 Intake Total 890 3780 50 Output Total 1700 4049 900 Balance -810 -269 -850 Weight 188 lb 189 lb - General physical appearance well developed, well nourished, no distress - Eyes PERRL, normal ocular movement - ENT normal pinna, normal nares, normal mucosa, no hearing loss, no congestion - Respiratory normal expansion, normal respiratory effort, clear to auscultation - Cardiovascular Cardiovascular exam: Present: normal rate and rhythm - Abdomen tender (mild tenderness around the wound VAC sponges with erythema; good active bowel sounds) - Integumentary no rash, no growths, no abnormal pigmentation - Neurologic normal coordination, normal sensation - Musculoskeletal normal gait, normal posture - Psychiatric oriented to time, oriented to person, oriented to place, speech is normal, memory intact - Labs 07/15/19 05:30 07/15/19 05:30 Diabetes panel 07/15/19 Range/Units 05:30 Sodium 140 (133-145) mmol/L Potassium 4.0 (3.3-5.1) mmol/L Chloride 104 (96-108) mmol/L Carbon Dioxide 25 (22-30) mmol/L BUN 14 (8-23) mg/dl Creatinine 0.9 (0.6-1.1) mg/dl Glucose 108 H (70-105) mg/dL Calcium 9.3 (8.6-10.4) mg/dl AST 17 (0-37) U/l ALT 14 (0-40) U/l Alkaline Phosphatase 163 H (39-117) U/L Total Protein 6.9 (5.9-8.4) gm/dL Albumin 3.3 (3.2-5.2) gm/dL Triglycerides 142 (<150) mg/dl Calcium panel 07/15/19 Range/Units 05:30 Calcium 9.3 (8.6-10.4) mg/dl Phosphorus 4.0 (2.7-4.5) mg/dL Albumin 3.3 (3.2-5.2) gm/dL Pituitary panel 07/15/19 Range/Units 05:30 Sodium 140 (133-145) mmol/L Potassium 4.0 (3.3-5.1) mmol/L Chloride 104 (96-108) mmol/L Carbon Dioxide 25 (22-30) mmol/L BUN 14 (8-23) mg/dl Creatinine 0.9 (0.6-1.1) mg/dl Glucose 108 H (70-105) mg/dL Calcium 9.3 (8.6-10.4) mg/dl Adrenal panel 07/15/19 Range/Units 05:30 Sodium 140 (133-145) mmol/L Potassium 4.0 (3.3-5.1) mmol/L Chloride 104 (96-108) mmol/L Carbon Dioxide 25 (22-30) mmol/L BUN 14 (8-23) mg/dl Creatinine 0.9 (0.6-1.1) mg/dl Glucose 108 H (70-105) mg/dL Calcium 9.3 (8.6-10.4) mg/dl Total Bilirubin 0.2 (0.0-1.0) mg/dL AST 17 (0-37) U/l ALT 14 (0-40) U/l Alkaline Phosphatase 163 H (39-117) U/L Total Protein 6.9 (5.9-8.4) gm/dL Albumin 3.3 (3.2-5.2) gm/dL Assessment and Plan (1) Cellulitis of abdominal wall Status: Acute Assessment and plan: Continue vancomycin and Zosyn pending results of culture and sensitivity. Continue wound VAC therapy Current Visit: Yes (2) Abdominal wall abscess Status: Acute Current Visit: Yes - Time Spent With Patient Total time spent is greater than 50% in coordination of care (as documented) at patient's floor/unit and/or counseling patient:
[2019-07-15] MEDS: ARIPIPRAZOLE 2 MG TABLET PO SCH (19:33)
[2019-07-15] MEDS: SENNOSIDES 1 TABLET PO SCH (19:34)
[2019-07-15] MEDS: MIRTAZAPINE 15 MG TABLET PO SCH (20:26)
[2019-07-16] MEDS: LACTATED RINGERS 1,000 ML IV SCH ×3 (03:03→16:23)
[2019-07-16] MEDS: PIPERACILLIN SODIUM/TAZOBACTAM 3.375 GM in DEXTROSE 5% IN WATER 50 ML IV SCH ×2 (05:15→12:35)
[2019-07-16] MEDS: 0.9 % SODIUM CHLORIDE 10 ML SYRINGE IV SCH ×4 (05:24→20:05)
[2019-07-16 06:22] LABS: Basophils # (Auto) 0.05 K/mcL (0.00-0.30); Basophils % (Auto) 0.6 % (0.0-2.0); Eosinophils # (Auto) 0.28 K/mcL (0.00-0.70); Eosinophils % (Auto) 3.3 % (0.0-7.0); Granulocytes % (Auto) 63.4 % (38.0-78.0); Hematocrit 34.5 % (34.1-44.9); Hemoglobin 10.9 g/dL (11.2-15.7); Lymphocytes # (Auto) 2.27 K/mcL (1.50-4.80); Lymphocytes % (Auto) 26.7 % (15.5-49.0); Mean Cell Volume 89.6 fL (80.0-100.0); Mean Corpuscular HGB Conc 31.6 g/dL (31.0-36.0); Mean Platelet Volume 9.3 fL (7.4-10.4); Monocytes # (Auto) 0.51 K/mcL (0.10-0.90); Platelet Count 407 K/mcL (140-440); RBC 3.85 M/mcL (3.59-5.38); Red Cell Distribution Width 14.6 % (11.5-14.5); WBC 8.5 K/mcL (4.50-11.00)
[2019-07-16 06:34] LABS: ALT/SGPT 36 U/l (0-40); AST/SGOT 87 U/l (0-37); Albumin 3.1 gm/dL (3.2-5.2); Albumin/Globulin Ratio 0.9 (1.0-2.3); Alkaline Phosphatase 269 U/L (39-117); Bilirubin,Direct < 0.2 mg/dL (0.0-0.3); Bilirubin,Total 0.3 mg/dL (0.0-1.0); Blood Urea Nitrogen 17 mg/dl (8-23); Calcium 8.9 mg/dl (8.6-10.4); Carbon Dioxide 26 mmol/L (22-30); Chloride 105 mmol/L (96-108); Globulin 3.5 gm/dL (2.2-3.7); Glomerular Filtration Rate 48; Glucose 84 mg/dL (70-105); Lactate Dehydrogenase 220 U/L (94-250); Phosphorous 4.3 mg/dL (2.7-4.5); Triglycerides 148 mg/dl (<150); Uric Acid 4.2 mg/dL (2.5-8.0)
[2019-07-16] MEDS: LEVOTHYROXINE 50 MCG TABLET PO SCH (07:16)
[2019-07-16] MEDS: oxyCODONE HCL 5 MG TABLET PO PRN ×2 (07:41→20:01)
[2019-07-16] MEDS: BUDESONIDE 0.5 MG/2 ML AMPUL.NEB NEB SCH ×2 (09:14→22:39)
[2019-07-16] MEDS: VANCOMYCIN 1,500 MG in 0.9 % SODIUM CHLORIDE 500 ML IV SCH (09:43)
[2019-07-16] MEDS: HEPARIN 5,000 UNIT/ML VIAL SQ SCH ×2 (09:43→20:00)
[2019-07-16] MEDS: ALPRAZolam 0.5 MG TABLET PO SCH (09:43)
[2019-07-16] MEDS: DOCUSATE SODIUM 100 MG CAPSULE PO SCH ×2 (09:44→20:01)
[2019-07-16] MEDS: FLUTICASONE/SALMETEROL 500/50 INHALER #14 INH SCH ×2 (09:44→20:02)
[2019-07-16] MEDS: DULoxetine 30 MG CAPSULE PO SCH ×2 (09:44→20:01)
[2019-07-16] MEDS: busPIRone 5 MG TABLET PO SCH ×2 (09:44→20:00)
[2019-07-16] MEDS: FORMOTEROL FUMARATE 20 MCG/2 ML INH SCH ×2 (09:45→20:04)
--- NOTE | 2019-07-16 15:26 | General Surgery Progress Note ---
Subjective Patient reports: feels better, pain is less (he declined and tomorrow while. In order for), afebrile ( them whenever) Narrative: Note initiated : 07/16/19 at 3:24 pm Service Date, if different from initiated Date: [] Patient: Jennifer Gama 78 y/o F admitted on 07/13/19 for Abdominal Wall Abscess. Chief Complaint: [Patient is doing well. She states that she does not have much discomfort. The cellulitis of her abdominal wall is decreasing daily. Cultures grew out MRSA sensitive to Zyvox and vancomycin, Septra. Discussed with her the need to have PICC line placed and she will need to have wound VAC and IV antibiotics for the next month. Also if we can salvage her mesh graft. She and her are agreeable to this] Objective Temp Pulse Resp BP Pulse Ox 98.0 F 82 18 158/81 91 07/16/19 12:00 07/16/19 12:00 07/16/19 12:00 07/16/19 12:00 07/16/19 12:00 - Additional Data Intake & Output - Last 24 hours: Intake & Output 07/14/19 07/15/19 07/16/19 07/17/19 04:59 04:59 05:59 05:59 Intake Total 550 Output Total 2450 Balance -1900 Weight - General physical appearance well developed, well nourished, no distress - Eyes PERRL, normal ocular movement - ENT normal pinna, normal nares, normal mucosa, no hearing loss, no congestion - Neck no masses, no bruits, trachea midline, no lymphadenopathy, no venous distension - Respiratory normal expansion, normal respiratory effort, clear to auscultation - Cardiovascular Cardiovascular exam: Present: normal rate and rhythm, RRR, +S1, +S2. Absent: JVD - Abdomen tender (moderate tenderness around wound VAC site and areas of erythema), bowel sounds (present), surgical scars (none), masses (none) - Neurologic normal coordination, normal sensation - Musculoskeletal normal gait, normal posture - Psychiatric oriented to time, oriented to person, oriented to place, speech is normal, memory intact - Labs 07/16/19 05:25 07/16/19 05:25 Diabetes panel 07/16/19 Range/Units 05:25 Sodium 143 (133-145) mmol/L Potassium 4.0 (3.3-5.1) mmol/L Chloride 105 (96-108) mmol/L Carbon Dioxide 26 (22-30) mmol/L BUN 17 (8-23) mg/dl Creatinine 1.1 (0.6-1.1) mg/dl Glucose 84 (70-105) mg/dL Calcium 8.9 (8.6-10.4) mg/dl AST 87 H (0-37) U/l ALT 36 (0-40) U/l Alkaline Phosphatase 269 H (39-117) U/L Total Protein 6.6 (5.9-8.4) gm/dL Albumin 3.1 L (3.2-5.2) gm/dL Triglycerides 148 (<150) mg/dl Calcium panel 07/16/19 Range/Units 05:25 Calcium 8.9 (8.6-10.4) mg/dl Phosphorus 4.3 (2.7-4.5) mg/dL Albumin 3.1 L (3.2-5.2) gm/dL Pituitary panel 07/16/19 Range/Units 05:25 Sodium 143 (133-145) mmol/L Potassium 4.0 (3.3-5.1) mmol/L Chloride 105 (96-108) mmol/L Carbon Dioxide 26 (22-30) mmol/L BUN 17 (8-23) mg/dl Creatinine 1.1 (0.6-1.1) mg/dl Glucose 84 (70-105) mg/dL Calcium 8.9 (8.6-10.4) mg/dl Adrenal panel 07/16/19 Range/Units 05:25 Sodium 143 (133-145) mmol/L Potassium 4.0 (3.3-5.1) mmol/L Chloride 105 (96-108) mmol/L Carbon Dioxide 26 (22-30) mmol/L BUN 17 (8-23) mg/dl Creatinine 1.1 (0.6-1.1) mg/dl Glucose 84 (70-105) mg/dL Calcium 8.9 (8.6-10.4) mg/dl Total Bilirubin 0.3 (0.0-1.0) mg/dL AST 87 H (0-37) U/l ALT 36 (0-40) U/l Alkaline Phosphatase 269 H (39-117) U/L Total Protein 6.6 (5.9-8.4) gm/dL Albumin 3.1 L (3.2-5.2) gm/dL Assessment and Plan (1) Cellulitis of abdominal wall Status: Acute Assessment and plan: Continue vancomycin . Continue wound VAC therapy Discontinue Zosyn. PICC line placement for long-term vancomycin Current Visit: Yes (2) Abdominal wall abscess Status: Acute Assessment and plan: Continue wound VAC Current Visit: Yes - Time Spent With Patient Total time spent is greater than 50% in coordination of care (as documented) at patient's floor/unit and/or counseling patient:
[2019-07-16] MEDS ORDERED: 0.9 % SODIUM CHLORIDE 10 ML SYRINGE IV PRN (15:32)
[2019-07-16] MEDS: MIRTAZAPINE 15 MG TABLET PO SCH (20:01)
[2019-07-16] MEDS: ARIPIPRAZOLE 2 MG TABLET PO SCH (20:02)
[2019-07-16] MEDS: SENNOSIDES 1 TABLET PO SCH (20:05)
[2019-07-17] MEDS: LACTATED RINGERS 1,000 ML IV SCH ×3 (01:15→23:05)
[2019-07-17] MEDS: LEVOTHYROXINE 50 MCG TABLET PO SCH (05:59)
[2019-07-17] MEDS: ALPRAZolam 0.5 MG TABLET PO SCH (05:59)
[2019-07-17] MEDS: 0.9 % SODIUM CHLORIDE 10 ML SYRINGE IV SCH ×5 (06:00→23:34)
[2019-07-17] MEDS: busPIRone 5 MG TABLET PO SCH ×2 (06:00→19:40)
[2019-07-17] MEDS: DULoxetine 30 MG CAPSULE PO SCH ×2 (06:00→19:40)
[2019-07-17 08:07] LABS: ALT/SGPT 55 U/l (0-40); AST/SGOT 109 U/l (0-37); Albumin 3.1 gm/dL (3.2-5.2); Albumin/Globulin Ratio 0.8 (1.0-2.3); Alkaline Phosphatase 352 U/L (39-117); Bilirubin,Direct < 0.2 mg/dL (0.0-0.3); Bilirubin,Total 0.3 mg/dL (0.0-1.0); Blood Urea Nitrogen 15 mg/dl (8-23); Calcium 9.3 mg/dl (8.6-10.4); Carbon Dioxide 27 mmol/L (22-30); Chloride 101 mmol/L (96-108); Globulin 3.7 gm/dL (2.2-3.7); Glomerular Filtration Rate 54; Glucose 97 mg/dL (70-105); Lactate Dehydrogenase 271 U/L (94-250); Triglycerides 169 mg/dl (<150); Uric Acid 4.4 mg/dL (2.5-8.0)
[2019-07-17] MEDS: FORMOTEROL FUMARATE 20 MCG/2 ML INH SCH ×2 (09:00→19:44)
[2019-07-17] MEDS: HEPARIN 5,000 UNIT/ML VIAL SQ SCH ×2 (09:13→19:39)
[2019-07-17] MEDS: FLUTICASONE/SALMETEROL 500/50 INHALER #14 INH SCH ×2 (09:14→19:41)
[2019-07-17] MEDS: DOCUSATE SODIUM 100 MG CAPSULE PO SCH ×2 (09:15→19:46)
[2019-07-17] MEDS: BUDESONIDE 0.5 MG/2 ML AMPUL.NEB NEB SCH ×2 (09:33→21:33)
--- NOTE | 2019-07-17 12:27 | XRay Report ---
CLINICAL INFORMATION: PICC PLACEMENT COMPARISON: 07/13/2019 FINDINGS: PICC line tip overlies the SVC azygos junction. Heart is mildly enlarged. Mediastinum and pulmonary vessels are normal. The lungs are clear. No effusions. IMPRESSION: No acute disease. PICC line tip overlying the SVC azygos junction. Interpreted and Authenticated by: Shane Barajas 07/17/19
[2019-07-17] MEDS: VANCOMYCIN 1,000 MG in 0.9 % SODIUM CHLORIDE 250 ML IV SCH ×2 (13:00→23:06)
[2019-07-17 14:31] LABS: Hepatitis B Surface Antigen NEGATIVE (NEGATIVE); Hepatitis C Virus Antibody NON REACTIVE (NEGATIVE)
[2019-07-17] MEDS: oxyCODONE HCL 5 MG TABLET PO PRN ×2 (14:49→19:38)
[2019-07-17] MEDS: VANCOMYCIN 1,500 MG in 0.9 % SODIUM CHLORIDE 500 ML IV SCH (16:05)
--- NOTE | 2019-07-17 16:21 | General Surgery Progress Note ---
Subjective Patient reports: no new complaints, feels better, pain is less, flatus, bowel movement, afebrile Narrative: Note initiated : 07/17/19 at 4:18 pm Service Date, if different from initiated Date: [] Patient: Jennifer Gama 78 y/o F admitted on 07/13/19 for Abdominal Wall Abscess. Chief Complaint: [Patient states that she feels well. She has much less pain. She denies nausea. She is afebrile. White blood count 8.5, hemoglobin 10.9, hematocrit 34.5. LFTs elevated with elevation in GGT, AST, ALT and alkaline phosphatase. Hepatitis A, B, and C are negative. The wound dressing was changed and the base of the wound is clean. Most of the cellulitis has resolved] Objective Temp Pulse Resp BP Pulse Ox 98.6 F 104 H 20 166/90 92 07/17/19 12:00 07/17/19 12:00 07/17/19 12:00 07/17/19 12:00 07/17/19 12:00 - Additional Data Intake & Output - Last 24 hours: Intake & Output 07/15/19 07/16/19 07/17/19 07/18/19 04:59 05:59 05:59 05:59 Intake Total 3737 1610 Output Total 5250 3100 Balance -1513 -1490 Weight 191 lb 8 oz - General physical appearance well developed, well nourished, no distress, moderate pain - Eyes PERRL, normal ocular movement - ENT normal pinna, normal nares, normal mucosa, no hearing loss, no congestion - Neck no masses, no bruits, trachea midline, no lymphadenopathy, no venous distension - Respiratory normal expansion, normal respiratory effort, clear to auscultation - Cardiovascular Cardiovascular exam: Present: normal rate and rhythm, RRR, +S1, +S2. Absent: JVD, tachycardia - Abdomen tender (mild tenderness around wound VAC site; significant reduction and cellulitis of abdominal wall) - Rectum normal sphincter tone, no hemorrhoids, no tenderness, no masses, no bleeding - Integumentary no rash, no growths, no abnormal pigmentation - Neurologic normal coordination, normal sensation - Musculoskeletal normal gait, normal posture - Psychiatric oriented to time, oriented to person, oriented to place, speech is normal, memory intact - Labs 07/16/19 05:25 07/17/19 05:18 Diabetes panel 07/17/19 Range/Units 05:18 Sodium 139 (133-145) mmol/L Potassium 4.4 (3.3-5.1) mmol/L Chloride 101 (96-108) mmol/L Carbon Dioxide 27 (22-30) mmol/L BUN 15 (8-23) mg/dl Creatinine 1.0 (0.6-1.1) mg/dl Glucose 97 (70-105) mg/dL Calcium 9.3 (8.6-10.4) mg/dl AST 109 H (0-37) U/l ALT 55 H (0-40) U/l Alkaline Phosphatase 352 H (39-117) U/L Total Protein 6.8 (5.9-8.4) gm/dL Albumin 3.1 L (3.2-5.2) gm/dL Triglycerides 169 H (<150) mg/dl Calcium panel 07/17/19 Range/Units 05:18 Calcium 9.3 (8.6-10.4) mg/dl Phosphorus 4.0 (2.7-4.5) mg/dL Albumin 3.1 L (3.2-5.2) gm/dL Pituitary panel 07/17/19 Range/Units 05:18 Sodium 139 (133-145) mmol/L Potassium 4.4 (3.3-5.1) mmol/L Chloride 101 (96-108) mmol/L Carbon Dioxide 27 (22-30) mmol/L BUN 15 (8-23) mg/dl Creatinine 1.0 (0.6-1.1) mg/dl Glucose 97 (70-105) mg/dL Calcium 9.3 (8.6-10.4) mg/dl Adrenal panel 07/17/19 Range/Units 05:18 Sodium 139 (133-145) mmol/L Potassium 4.4 (3.3-5.1) mmol/L Chloride 101 (96-108) mmol/L Carbon Dioxide 27 (22-30) mmol/L BUN 15 (8-23) mg/dl Creatinine 1.0 (0.6-1.1) mg/dl Glucose 97 (70-105) mg/dL Calcium 9.3 (8.6-10.4) mg/dl Total Bilirubin 0.3 (0.0-1.0) mg/dL AST 109 H (0-37) U/l ALT 55 H (0-40) U/l Alkaline Phosphatase 352 H (39-117) U/L Total Protein 6.8 (5.9-8.4) gm/dL Albumin 3.1 L (3.2-5.2) gm/dL Assessment and Plan (1) Cellulitis of abdominal wall Status: Acute Assessment and plan: Continue vancomycin . Continue wound VAC therapy Current Visit: Yes (2) Abdominal wall abscess Status: Acute Assessment and plan: Continue wound VAC Current Visit: Yes - Time Spent With Patient Total time spent is greater than 50% in coordination of care (as documented) at patient's floor/unit and/or counseling patient:
[2019-07-17] MEDS: MIRTAZAPINE 15 MG TABLET PO SCH (19:40)
[2019-07-17] MEDS: SENNOSIDES 1 TABLET PO SCH (19:45)
[2019-07-17] MEDS: ARIPIPRAZOLE 2 MG TABLET PO SCH (19:50)
[2019-07-18] MEDS: LACTATED RINGERS 1,000 ML IV SCH ×2 (05:13→16:11)
[2019-07-18] MEDS: ALPRAZolam 0.5 MG TABLET PO SCH (05:39)
[2019-07-18] MEDS: oxyCODONE HCL 5 MG TABLET PO PRN ×4 (05:39→21:57)
[2019-07-18] MEDS: busPIRone 5 MG TABLET PO SCH ×2 (05:40→19:06)
[2019-07-18] MEDS: LEVOTHYROXINE 50 MCG TABLET PO SCH (05:40)
[2019-07-18] MEDS: DULoxetine 30 MG CAPSULE PO SCH ×2 (05:40→19:08)
[2019-07-18] MEDS: 0.9 % SODIUM CHLORIDE 10 ML SYRINGE IV SCH ×5 (05:41→22:00)
[2019-07-18] MEDS: FLUTICASONE/SALMETEROL 500/50 INHALER #14 INH SCH ×2 (08:14→19:13)
[2019-07-18] MEDS: HEPARIN 5,000 UNIT/ML VIAL SQ SCH ×2 (08:14→19:09)
[2019-07-18] MEDS: FORMOTEROL FUMARATE 20 MCG/2 ML INH SCH ×2 (08:15→20:56)
[2019-07-18] MEDS: DOCUSATE SODIUM 100 MG CAPSULE PO SCH ×2 (08:16→19:08)
[2019-07-18] MEDS: VANCOMYCIN 1,000 MG in 0.9 % SODIUM CHLORIDE 250 ML IV SCH ×2 (08:16→21:58)
[2019-07-18] MEDS: BUDESONIDE 0.5 MG/2 ML AMPUL.NEB NEB SCH ×2 (08:29→20:36)
[2019-07-18 09:44] LABS: ALT/SGPT 40 U/l (0-40); AST/SGOT 33 U/l (0-37); Albumin 3.3 gm/dL (3.2-5.2); Albumin/Globulin Ratio 0.9 (1.0-2.3); Alkaline Phosphatase 265 U/L (39-117); Bilirubin,Direct < 0.2 mg/dL (0.0-0.3); Bilirubin,Total 0.2 mg/dL (0.0-1.0); Blood Urea Nitrogen 17 mg/dl (8-23); Calcium 9.2 mg/dl (8.6-10.4); Carbon Dioxide 25 mmol/L (22-30); Chloride 101 mmol/L (96-108); Globulin 3.6 gm/dL (2.2-3.7); Glomerular Filtration Rate 61; Glucose 88 mg/dL (70-105); Lactate Dehydrogenase 196 U/L (94-250); Phosphorous 3.9 mg/dL (2.7-4.5); Triglycerides 158 mg/dl (<150); Uric Acid 4.6 mg/dL (2.5-8.0)
[2019-07-18] MEDS: NICOTINE 21 MG PATCH TOPICAL SCH (16:34)
--- NOTE | 2019-07-18 16:41 | General Surgery Progress Note ---
Subjective Patient reports: feels better, pain is less, flatus, bowel movement, afebrile Narrative: Note initiated : 07/18/19 at 4:39 pm Service Date, if different from initiated Date: [] Patient: Jennifer Gama 78 y/o F admitted on 07/13/19 for Abdominal Wall Abscess. Chief Complaint: [patient is continuing to improve. She has less discomfort. She is afebrile. Drainage is continuing to decrease] Objective Temp Pulse Resp BP Pulse Ox 98.0 F 83 18 141/77 97 07/18/19 08:00 07/18/19 08:00 07/18/19 08:00 07/18/19 08:00 07/18/19 08:00 - Additional Data Intake & Output - Last 24 hours: Intake & Output 07/16/19 07/17/19 07/18/19 07/19/19 05:59 05:59 05:59 05:59 Intake Total 3737 4100 2130 Output Total 5250 4800 800 Balance -1513 -700 1330 Weight 191 lb 8 oz 198 lb 198 lb - General physical appearance well developed, well nourished, no distress - Respiratory normal expansion, normal respiratory effort, clear to auscultation - Cardiovascular Cardiovascular exam: Present: normal rate and rhythm, RRR, +S1, +S2. Absent: JVD, tachycardia - Abdomen tender (mild tenderness around wound VAC dressing but no progression of cellulitis; no induration noted) - Integumentary no rash, no growths, no abnormal pigmentation - Neurologic normal coordination, normal sensation - Musculoskeletal normal gait, normal posture - Psychiatric oriented to time, oriented to person, oriented to place, speech is normal, memory intact - Labs 07/16/19 05:25 07/18/19 05:53 Diabetes panel 07/18/19 Range/Units 05:53 Sodium 138 (133-145) mmol/L Potassium 4.0 (3.3-5.1) mmol/L Chloride 101 (96-108) mmol/L Carbon Dioxide 25 (22-30) mmol/L BUN 17 (8-23) mg/dl Creatinine 0.9 (0.6-1.1) mg/dl Glucose 88 (70-105) mg/dL Calcium 9.2 (8.6-10.4) mg/dl AST 33 (0-37) U/l ALT 40 (0-40) U/l Alkaline Phosphatase 265 H (39-117) U/L Total Protein 6.9 (5.9-8.4) gm/dL Albumin 3.3 (3.2-5.2) gm/dL Triglycerides 158 H (<150) mg/dl Calcium panel 07/18/19 Range/Units 05:53 Calcium 9.2 (8.6-10.4) mg/dl Phosphorus 3.9 (2.7-4.5) mg/dL Albumin 3.3 (3.2-5.2) gm/dL Pituitary panel 07/18/19 Range/Units 05:53 Sodium 138 (133-145) mmol/L Potassium 4.0 (3.3-5.1) mmol/L Chloride 101 (96-108) mmol/L Carbon Dioxide 25 (22-30) mmol/L BUN 17 (8-23) mg/dl Creatinine 0.9 (0.6-1.1) mg/dl Glucose 88 (70-105) mg/dL Calcium 9.2 (8.6-10.4) mg/dl Adrenal panel 07/18/19 Range/Units 05:53 Sodium 138 (133-145) mmol/L Potassium 4.0 (3.3-5.1) mmol/L Chloride 101 (96-108) mmol/L Carbon Dioxide 25 (22-30) mmol/L BUN 17 (8-23) mg/dl Creatinine 0.9 (0.6-1.1) mg/dl Glucose 88 (70-105) mg/dL Calcium 9.2 (8.6-10.4) mg/dl Total Bilirubin 0.2 (0.0-1.0) mg/dL AST 33 (0-37) U/l ALT 40 (0-40) U/l Alkaline Phosphatase 265 H (39-117) U/L Total Protein 6.9 (5.9-8.4) gm/dL Albumin 3.3 (3.2-5.2) gm/dL Assessment and Plan (1) Cellulitis of abdominal wall Status: Acute Assessment and plan: Continue vancomycin . Continue wound VAC therapy Current Visit: Yes (2) Abdominal wall abscess Status: Acute Assessment and plan: Continue wound VAC Current Visit: Yes - Time Spent With Patient Total time spent is greater than 50% in coordination of care (as documented) at patient's floor/unit and/or counseling patient:
[2019-07-18] MEDS: MIRTAZAPINE 15 MG TABLET PO SCH (19:06)
[2019-07-18] MEDS: SENNOSIDES 1 TABLET PO SCH (19:07)
[2019-07-18] MEDS: ARIPIPRAZOLE 2 MG TABLET PO SCH (19:12)
[2019-07-19] MEDS: busPIRone 5 MG TABLET PO SCH ×2 (05:48→20:03)
[2019-07-19] MEDS: LEVOTHYROXINE 50 MCG TABLET PO SCH (05:49)
[2019-07-19] MEDS: ALPRAZolam 0.5 MG TABLET PO SCH (05:49)
[2019-07-19] MEDS: DULoxetine 30 MG CAPSULE PO SCH ×2 (05:50→20:04)
[2019-07-19] MEDS: 0.9 % SODIUM CHLORIDE 10 ML SYRINGE IV SCH ×5 (05:51→20:05)
[2019-07-19 08:10] LABS: ALT/SGPT 50 U/l (0-40); AST/SGOT 73 U/l (0-37); Albumin 3.2 gm/dL (3.2-5.2); Albumin/Globulin Ratio 0.8 (1.0-2.3); Alkaline Phosphatase 347 U/L (39-117); Bilirubin,Direct < 0.2 mg/dL (0.0-0.3); Bilirubin,Total 0.4 mg/dL (0.0-1.0); Blood Urea Nitrogen 16 mg/dl (8-23); Calcium 9.5 mg/dl (8.6-10.4); Carbon Dioxide 27 mmol/L (22-30); Chloride 101 mmol/L (96-108); Globulin 3.8 gm/dL (2.2-3.7); Glomerular Filtration Rate 54; Glucose 94 mg/dL (70-105); Lactate Dehydrogenase 204 U/L (94-250); Phosphorous 4.6 mg/dL (2.7-4.5); Triglycerides 174 mg/dl (<150)
[2019-07-19] MEDS: FLUTICASONE/SALMETEROL 500/50 INHALER #14 INH SCH ×2 (09:07→20:05)
[2019-07-19] MEDS: DOCUSATE SODIUM 100 MG CAPSULE PO SCH ×2 (09:07→20:03)
[2019-07-19] MEDS: HEPARIN 5,000 UNIT/ML VIAL SQ SCH ×2 (09:08→20:04)
[2019-07-19] MEDS: VANCOMYCIN 1,000 MG in 0.9 % SODIUM CHLORIDE 250 ML IV SCH (09:09)
[2019-07-19] MEDS: BUDESONIDE 0.5 MG/2 ML AMPUL.NEB NEB SCH ×2 (09:09→19:21)
[2019-07-19] MEDS: FORMOTEROL FUMARATE 20 MCG/2 ML INH SCH ×2 (09:09→20:05)
[2019-07-19] MEDS: oxyCODONE HCL 5 MG TABLET PO PRN ×2 (09:21→20:21)
[2019-07-19] MEDS: NICOTINE 21 MG PATCH TOPICAL SCH (09:21)
--- NOTE | 2019-07-19 15:10 | General Surgery Progress Note ---
Subjective Patient reports: feels better, pain is less, tolerating a regular diet, flatus, bowel movement, afebrile Narrative: Note initiated : 07/19/19 at 3:08 pm Service Date, if different from initiated Date: [] Patient: Jennifer Gama 78 y/o F admitted on 07/13/19 for Abdominal Wall Abscess. Chief Complaint: [] Patient is doing well. She has less discomfort and she is putting out minimal fluid through her wound VAC. Her wound is clean and the base is continuing to granulate in. Discussed with her the need to continue outpatient vancomycin for 3-4 weeks with close monitoring of her renal status. This will be performed by pharmacy. She will have her wound VAC change twice weekly through the office and I will see her every 2 weeks in the office. Objective Temp Pulse Resp BP Pulse Ox 98.5 F 95 H 14 128/71 96 07/19/19 12:00 07/19/19 12:00 07/19/19 12:00 07/19/19 12:00 07/19/19 12:00 - Additional Data Intake & Output - Last 24 hours: Intake & Output 07/17/19 07/18/19 07/19/19 07/20/19 05:59 05:59 05:59 05:59 Intake Total 3737 4100 4000 850 Output Total 5250 4800 4175 Balance -1513 -700 -175 850 Weight 191 lb 8 oz 198 lb 200 lb 8 oz - Labs 07/16/19 05:25 07/19/19 05:56 Diabetes panel 07/19/19 Range/Units 05:56 Sodium 139 (133-145) mmol/L Potassium 3.9 (3.3-5.1) mmol/L Chloride 101 (96-108) mmol/L Carbon Dioxide 27 (22-30) mmol/L BUN 16 (8-23) mg/dl Creatinine 1.0 (0.6-1.1) mg/dl Glucose 94 (70-105) mg/dL Calcium 9.5 (8.6-10.4) mg/dl AST 73 H (0-37) U/l ALT 50 H (0-40) U/l Alkaline Phosphatase 347 H (39-117) U/L Total Protein 7.0 (5.9-8.4) gm/dL Albumin 3.2 (3.2-5.2) gm/dL Triglycerides 174 H (<150) mg/dl Calcium panel 07/19/19 Range/Units 05:56 Calcium 9.5 (8.6-10.4) mg/dl Phosphorus 4.6 H (2.7-4.5) mg/dL Albumin 3.2 (3.2-5.2) gm/dL Pituitary panel 07/19/19 Range/Units 05:56 Sodium 139 (133-145) mmol/L Potassium 3.9 (3.3-5.1) mmol/L Chloride 101 (96-108) mmol/L Carbon Dioxide 27 (22-30) mmol/L BUN 16 (8-23) mg/dl Creatinine 1.0 (0.6-1.1) mg/dl Glucose 94 (70-105) mg/dL Calcium 9.5 (8.6-10.4) mg/dl Adrenal panel 07/19/19 Range/Units 05:56 Sodium 139 (133-145) mmol/L Potassium 3.9 (3.3-5.1) mmol/L Chloride 101 (96-108) mmol/L Carbon Dioxide 27 (22-30) mmol/L BUN 16 (8-23) mg/dl Creatinine 1.0 (0.6-1.1) mg/dl Glucose 94 (70-105) mg/dL Calcium 9.5 (8.6-10.4) mg/dl Total Bilirubin 0.4 (0.0-1.0) mg/dL AST 73 H (0-37) U/l ALT 50 H (0-40) U/l Alkaline Phosphatase 347 H (39-117) U/L Total Protein 7.0 (5.9-8.4) gm/dL Albumin 3.2 (3.2-5.2) gm/dL Assessment and Plan (1) Cellulitis of abdominal wall Status: Acute Assessment and plan: Continue vancomycin . Continue wound VAC therapy Current Visit: Yes (2) Abdominal wall abscess Status: Acute Assessment and plan: Continue wound VAC Current Visit: Yes - Time Spent With Patient Total time spent is greater than 50% in coordination of care (as documented) at patient's floor/unit and/or counseling patient:
--- NOTE | 2019-07-19 16:45 | Operative Note ---
DATE OF OPERATION: 07/14/2019 PREOPERATIVE DIAGNOSES: Cellulitis of abdominal wall with abscess. POSTOPERATIVE DIAGNOSES: Cellulitis of abdominal wall with abscess. PROCEDURE: 1. Excisional debridement of abscess of abdominal wall measuring 14 x 8 x 2.5 cm with excision of skin, subcutaneous fat, and fascia. 2. Wound V.A.C. placement. SURGEON: Lin Medrano M.D. FINDINGS: Central infection of infraumbilical midline incision extended down to the mesh with a small amount of turbid fluid. DESCRIPTION: Under general anesthesia, the patient's abdomen was prepped and draped in the sterile field. An elliptical incision was made in the skin and subcutaneous tissue and extended down to the fascia. The area measured 14 x 8 x 2.5 cm. The skin, subcutaneous fat, and fascia were excised. The superior margin of the incision showed exposed mesh, but bowel was not exposed. There was a small amount of turbid fluid that was encountered and this was cultured. Copious irrigation was carried out. Hemostasis was achieved. Care was taken to excise all the inflamed tissue. It was elected to treat this with wound V.A.C. therapy. A full-length white sponge was chosen and was split in half. This was placed in the area that tunneled over the mesh. This was covered with a pozo sponge, and the adhesive liner was then placed over the entire area. It was hooked to suction at 125 mmHg, and there was a complete seal. The patient was awakened from anesthesia uneventfully, transferred to a bed, and taken to the postanesthetic care unit in a stable, satisfactory condition. [email or web address]:hilda Job ID: [id number] Doc ID: [id number] Lin Medrano M.D.
[2019-07-19] MEDS: ARIPIPRAZOLE 2 MG TABLET PO SCH (20:01)
[2019-07-19] MEDS: SENNOSIDES 1 TABLET PO SCH (20:03)
[2019-07-19] MEDS: MIRTAZAPINE 15 MG TABLET PO SCH (20:04)
[2019-07-20] MEDS: 0.9 % SODIUM CHLORIDE 10 ML SYRINGE IV SCH ×3 (04:18→08:57)
[2019-07-20] MEDS: LEVOTHYROXINE 50 MCG TABLET PO SCH (05:38)
[2019-07-20] MEDS: DULoxetine 30 MG CAPSULE PO SCH (05:38)
[2019-07-20] MEDS: ALPRAZolam 0.5 MG TABLET PO SCH (05:38)
[2019-07-20] MEDS: busPIRone 5 MG TABLET PO SCH (05:38)
[2019-07-20 06:24] LABS: Basophils # (Auto) 0.04 K/mcL (0.00-0.30); Basophils % (Auto) 0.5 % (0.0-2.0); Eosinophils # (Auto) 0.73 K/mcL (0.00-0.70); Eosinophils % (Auto) 8.7 % (0.0-7.0); Hematocrit 36.1 % (34.1-44.9); Hemoglobin 11.4 g/dL (11.2-15.7); Lymphocytes % (Auto) 26.3 % (15.5-49.0); Mean Cell Volume 88.5 fL (80.0-100.0); Mean Corpuscular HGB Conc 31.6 g/dL (31.0-36.0); Mean Platelet Volume 9.7 fL (7.4-10.4); Monocytes # (Auto) 0.63 K/mcL (0.10-0.90); Monocytes % (Auto) 7.5 % (1.0-12.0); Platelet Count 359 K/mcL (140-440); RBC 4.08 M/mcL (3.59-5.38); Red Cell Distribution Width 14.9 % (11.5-14.5); WBC 8.4 K/mcL (4.50-11.00)
[2019-07-20 06:48] LABS: ALT/SGPT 69 U/l (0-40); AST/SGOT 114 U/l (0-37); Albumin 3.4 gm/dL (3.2-5.2); Albumin/Globulin Ratio 0.9 (1.0-2.3); Alkaline Phosphatase 419 U/L (39-117); Bilirubin,Direct 0.2 mg/dL (0.0-0.3); Bilirubin,Total 0.4 mg/dL (0.0-1.0); Blood Urea Nitrogen 18 mg/dl (8-23); Calcium 9.2 mg/dl (8.6-10.4); Carbon Dioxide 25 mmol/L (22-30); Chloride 105 mmol/L (96-108); Globulin 3.6 gm/dL (2.2-3.7); Glomerular Filtration Rate 61; Glucose 99 mg/dL (70-105); Lactate Dehydrogenase 262 U/L (94-250); Phosphorous 4.2 mg/dL (2.7-4.5); Triglycerides 193 mg/dl (<150); Uric Acid 5.9 mg/dL (2.5-8.0)
[2019-07-20] MEDS: HEPARIN 5,000 UNIT/ML VIAL SQ SCH (08:55)
[2019-07-20] MEDS: DOCUSATE SODIUM 100 MG CAPSULE PO SCH (08:55)
[2019-07-20] MEDS: FLUTICASONE/SALMETEROL 500/50 INHALER #14 INH SCH (08:56)
[2019-07-20] MEDS: FORMOTEROL FUMARATE 20 MCG/2 ML INH SCH (08:57)
[2019-07-20] MEDS ORDERED: VANCOMYCIN 1,500 MG in 0.9 % SODIUM CHLORIDE 500 ML IV SCH (09:00)
[2019-07-20] MEDS: BUDESONIDE 0.5 MG/2 ML AMPUL.NEB NEB SCH (09:09)
[2019-07-20] MEDS: NICOTINE 21 MG PATCH TOPICAL SCH (10:10)
--- NOTE | 2019-08-02 13:45 | Discharge Summary ---
Providers - Providers Patient information: Note initiated : 08/02/19 at 1:45 pm Service Date, if different from initiated Date: [] Patient: Jennifer Gama 78 y/o F admitted on 07/13/19 for Abdominal Wall Abscess. Chief Complaint: [] Date of admission: 07/13/19 Discharge date: 07/20/19 Attending physician: Lin Medrano Hospitalization Hospital Course: 70-year-old female who was admitted on July 27 within the abdominal wall. She is about 5 months status post repair of a large incisional hernia. She had previous MRSA infection. She had excisional debridement of an abscess of the abdominal wall including skin, subcutaneous fat and fascia. The underlay mesh beneath the fascia was exposed and a small area and there was a small amount of turbid fluid extending down to the mesh. Cultures were taken from from the depth of the wound and it grew MRSA. It was elected to treat with wound VAC and long-term antibiotics to try to salvage the mesh. She did well in the hospital and was discharged on July 27 with plans for vancomycin therapy and wound VAC treatment. Discharge diagnosis: cellulitis of abdominal wall with abscess Secondary discharge diagnosis: MRSA infection Reason for admission: cellulitis of abdominal wall Procedures: Excisional debridement of abscess of abdominal wall with excision of skin, subcutaneous fat and fascia. Wound VAC placement Pertinent studies/significant findings: CT of abdomen and pelvis with contrast Complications: None Exam Temp Pulse Resp BP Pulse Ox 97.9 F 92 H 14 125/82 98 07/20/19 11:31 07/20/19 11:31 07/20/19 11:34 07/20/19 11:31 07/20/19 11:31 - General physical appearance well developed, well nourished, no distress - Neck no masses, no bruits, trachea midline, no lymphadenopathy, no venous distension - Cardiovascular Cardiovascular exam IM: Present: RRR, +S1, +S2. Absent: JVD, tachycardia - Respiratory normal expansion, normal respiratory effort, clear to auscultation - Abdomen Abdomen: Present: tender (tender abdominal wall around the midportion with small amount of cellulitis. Wound VAC dressing in place) Discharge Plan - Patient/Caregiver Discharge Instructions Activity: increase activity as tolerated Diet: Regular Diet Additional Instructions: Discharge Instructions: You are scheduled to start daily outpatient IV antibiotics on WednesdayJuly 20 at 10:00 am. This will be the same time each day. Wednesday through Wednesday you will be at the Day Surgery area. Weekends will be done on the Med/Surg unit. You have a PICC line in, please keep covered when showering to keep dressing clean and dry. Use the Glove covering we gave you at discharge when showering. This will need weekly dressing changes that will be done at [facility] at the time you have your daily antibiotics done. You have a new prescription for Oxycodone that has been electronically sent to your pharmacy at [facility] and should be ready to be picked up after discharge home today. Keep your follow up appointment with Dr Medrano for dressing changes to be done on Wed and ' each week. You wound vac should always be set at 125 mmhg continuous. Take the dressings with you to your doctors appointment as he will need these to change your dressings (the box you were sent home with). Any questions about your dressing or wound vac call Dr Medrano's office. You may need to take an over the counter stool softener while taking pain medication to prevent constipation. Increase activity as tolerated. May resume regular diet. Prescriptions: oxyCODONE HCL [Oxycodone HCl] 10 tab PO Q4HP PRN #60 tab PRN Reason: Pain Level > 6 Transmission Status: Received by [facility] Vancomycin 1,500 mg IV Q24H #30 vial Prescription Printed Other Amb Orders: Outpatient PICC Care Location: None Selected - Follow up Plan Follow up with: Lin Medrano MD [Physician] - 07/24/19 2:00 pm (Then July 26 at 2:00 pm.) Disposition: Home, Self-Care Care Plan Goals: This discharge packet is provided to you to help keep you informed about your care. We want to ensure you get everything you need when you go home. You will also be receiving a call from us in a few days to follow up with you and see how you are doing since your discharge. This gives us a chance to listen to any concerns you maybe experiencing since you were discharged or any additional needs you may have, as well as providing us feedback on your care experience. We strive to always provide excellent care and thank you for your feedback and for choosing [facility]. Prognosis: Good Rehab Potential: Good I certify that the patient requires SNF services.: No Overall status at discharge: patient is not back to baseline Pending Studies Diet Regular Diet Start WedJul 13 1056 Shift Summary 07/20/19 02:39 Shift Summary by Margaret Armendariz Pt is A&Ox4. Up ad kaylynn in room. VSS on RA. Wears CPAP at night w/2L O2 bled into it. Single-lumen PICC to JORGE, heparin-locked (dressing changed yesterday). Woundvac to medial abdomen @ 125 mmHg (dressing changed yesterday as well). Possible d/c home this afternoon with a home woundvac, but unclear as last case management note was from 07/16/19. Medicated for pain with Roxicodone x1. Will update with verbal report. Initialized on 07/20/19 02:39 - END OF NOTE
== END 2019-07-20 15:40 | disposition home or self-care (01) | DRG 902 ==
LOC: MEDSUR 14:58
PROVIDERS: ADMIT Family Medicine Adult Medicine; ATTEND Family Medicine Adult Medicine

== ENCOUNTER 2019-12-06 10:00 | Inpatient (IN) ==
--- NOTE | 2019-12-04 11:59 | XRay Report ---
CLINICAL INFORMATION: Preop COMPARISON: 07/17/2019 TECHNIQUE: PA and Lateral views FINDINGS: The heart size, mediastinum and pulmonary vessels are unremarkable. The lungs are clear. There are no effusions. The bones and soft tissues are within normal limits. IMPRESSION: Normal chest. Interpreted and Authenticated by: Shane Barajas 12/04/19
[2019-12-04 13:24] LABS: Basophils # (Auto) 0.05 K/mcL (0.00-0.30); Basophils % (Auto) 0.6 % (0.0-2.0); Eosinophils % (Auto) 4.6 % (0.0-7.0); Granulocytes % (Auto) 61.9 % (38.0-78.0); Hematocrit 38.8 % (34.1-44.9); Hemoglobin 12.7 g/dL (11.2-15.7); Lymphocytes # (Auto) 2.15 K/mcL (1.50-4.80); Mean Cell Volume 90.2 fL (80.0-100.0); Mean Corpuscular HGB Conc 32.7 g/dL (31.0-36.0); Mean Platelet Volume 9.8 fL (7.4-10.4); Monocytes # (Auto) 0.68 K/mcL (0.10-0.90); Monocytes % (Auto) 7.9 % (1.0-12.0); Platelet Count 399 K/mcL (140-440); Red Cell Distribution Width 14.8 % (11.5-14.5); WBC 8.6 K/mcL (4.50-11.00)
[2019-12-04 13:30] LABS: ALT/SGPT 25 U/l (0-40); AST/SGOT 31 U/l (0-37); Alkaline Phosphatase 273 U/L (39-117); Bilirubin,Total 0.3 mg/dL (0.0-1.0); Blood Urea Nitrogen 14 mg/dl (8-23); Calcium 9.3 mg/dl (8.6-10.4); Carbon Dioxide 26 mmol/L (22-30); Chloride 100 mmol/L (96-108); Globulin 3.9 gm/dL (2.2-3.7); Glomerular Filtration Rate 54; Glucose 75 mg/dL (70-105)
[2019-12-04 13:37] LABS: INR 0.9 (0.9-1.1); Prothrombin Time 12.5 sec (11.9-14.5)
[~2019-12-06 10:00] MED LIST changes: -SCOPOLAMINE 1 PATCH PATCH TOPICAL PRN; +VANCOMYCIN 1,500 MG in 0.9 % SODIUM CHLORIDE 500 ML IV SCH
[2019-12-06] MEDS ORDERED: DEXAMETHASONE 10 MG/ML VIAL ONE (15:02)
[2019-12-06] MEDS ORDERED: KETAMINE HCL 50 MG/ML ML ONE (15:02)
[2019-12-06] MEDS ORDERED: LIDOCAINE HCL/PF 100 MG/5 ML SYRINGE IV ONE (15:02)
[2019-12-06] MEDS ORDERED: ONDANSETRON 4 MG/2 ML VIAL ONE (15:02)
[2019-12-06] MEDS ORDERED: fentaNYL 100 MCG/2 ML VIAL IV ONE (15:02)
[2019-12-06] MEDS ORDERED: PROPOFOL 200 MG/20 ML VIAL IV ONE (15:02)
[2019-12-06] MEDS ORDERED: SUCCINYLCHOLINE 20 MG/ML ML IV ONE (15:02)
[2019-12-06] MEDS ORDERED: cefTRIAXone 1 GM VIAL IV ONE ×2 (15:26→16:30)
[2019-12-06] MEDS ORDERED: HYDROmorphone 1 MG/ML SYRINGE IV PRN (16:08)
[2019-12-06] MEDS ORDERED: PROMETHAZINE 25 MG/ML VIAL IV PRN ×2 (16:08→16:13)
[2019-12-06] MEDS ORDERED: ONDANSETRON 4 MG/2 ML VIAL IV PRN ×2 (16:08→16:13)
--- NOTE | 2019-12-06 16:08 | Brief Operative Note ---
Brief Operative Note Date of procedure: 12/06/19 Pre-op diagnosis: incisional hernia with mesh graft infection Post-op diagnosis: other (incisional hernia with mesh graft infection) Procedure: explantation of mesh graft ([id number]) with debridement and wound vac placement Grafts/Implants: No Anesthesia: GETA Findings: infection surrounding mesh graft with separation of most of mesh Complications: none Surgeon: Lin Medrano Estimated blood loss (cc): 50 Specimens Removed/Pathology: other (mesh graft (discarded)) Condition: stable Disposition: PACU
[2019-12-06] MEDS ORDERED: METHOCARBAMOL 1,000 MG/10 ML VIAL IV PRN (16:13)
[2019-12-06] MEDS ORDERED: diphenhydrAMINE 50 MG/ML VIAL IV PRN (16:13)
[2019-12-06] MEDS ORDERED: IPRATROPIUM/ALBUTEROL 3 ML AMPUL.NEB NEB PRN (16:13)
[2019-12-06] MEDS ORDERED: ePHEDrine 50 MG/ML AMPUL IV PRN (16:13)
[2019-12-06] MEDS ORDERED: FLUMAZENIL 0.1 MG/ML ML IV PRN (16:13)
[2019-12-06] MEDS ORDERED: ATROPINE SULFATE 0.4 MG/ML VIAL IV PRN (16:13)
[2019-12-06] MEDS ORDERED: ACETAMINOPHEN 1,000 MG/100 ML BOTTLE IV ONE (16:13)
[2019-12-06] MEDS ORDERED: NALOXONE HCL 0.4 MG/ML VIAL IV PRN (16:13)
[2019-12-06] MEDS ORDERED: fentaNYL 100 MCG/2 ML VIAL IV PRN (16:13)
[2019-12-06] MEDS ORDERED: BACITRACIN 50,000 UNIT VIAL IR ONE (16:14)
[2019-12-06] MEDS ORDERED: LACTATED RINGERS 1,000 ML IV SCH (16:15)
[2019-12-06] MEDS ORDERED: VANCOMYCIN PER PHARMACY IV SCH (16:45)
[2019-12-06] MEDS: 0.9 % SODIUM CHLORIDE 1,000 ML IV SCH (17:33)
[2019-12-06] MEDS: DOCUSATE SODIUM 100 MG CAPSULE PO SCH (21:36)
[2019-12-06] MEDS: MUPIROCIN OINT 2% 22GM NARES SCH (21:36)
[2019-12-06] MEDS: SENNOSIDES 1 TABLET PO SCH (21:36)
[2019-12-06] MEDS: 0.9 % SODIUM CHLORIDE 10 ML SYRINGE IV SCH (21:37)
[2019-12-06] MEDS: VANCOMYCIN 1,000 MG in 0.9 % SODIUM CHLORIDE 250 ML IV SCH (23:12)
[2019-12-06] MEDS ORDERED: SCOPOLAMINE 1 PATCH PATCH TOPICAL PRN (23:55)
[2019-12-07] MEDS: 0.9 % SODIUM CHLORIDE 10 ML SYRINGE IV SCH ×3 (05:08→21:37)
[2019-12-07] MEDS: 0.9 % SODIUM CHLORIDE 1,000 ML IV SCH ×2 (06:06→21:35)
[2019-12-07 08:31] LABS: POC Blood Urea Nitrogen 12 mg/dl (8-23); POC CO2 23 mmol/L (22-30); POC Calcium, Ionized 1.08 mmol/L (1.16-1.32); POC Chloride 103 mmol/L (96-108); POC Creatinine 0.9 mg/dl (0.6-1.1); POC Glucose, Random 160 mg/dL (70-105); POC Potassium 4.3 mmol/L (3.3-5.1); POC Sodium 136 mmol/L (133-145)
[2019-12-07 08:52] LABS: Basophils # (Auto) 0.05 K/mcL (0.00-0.30); Basophils % (Auto) 0.6 % (0.0-2.0); Eosinophils # (Auto) 0.23 K/mcL (0.00-0.70); Eosinophils % (Auto) 2.9 % (0.0-7.0); Granulocytes % (Auto) 74.7 % (38.0-78.0); Hematocrit 35.6 % (34.1-44.9); Hemoglobin 11.7 g/dL (11.2-15.7); Lymphocytes # (Auto) 1.32 K/mcL (1.50-4.80); Lymphocytes % (Auto) 16.7 % (15.5-49.0); Mean Cell Volume 90.4 fL (80.0-100.0); Mean Corpuscular HGB Conc 32.9 g/dL (31.0-36.0); Mean Platelet Volume 9.6 fL (7.4-10.4); Monocytes % (Auto) 5.1 % (1.0-12.0); Platelet Count 323 K/mcL (140-440); RBC 3.94 M/mcL (3.59-5.38); Red Cell Distribution Width 14.6 % (11.5-14.5); WBC 7.9 K/mcL (4.50-11.00)
[2019-12-07 09:16] LABS: ALT/SGPT 32 U/l (0-40); AST/SGOT 56 U/l (0-37); Albumin 3.2 gm/dL (3.2-5.2); Alkaline Phosphatase 274 U/L (39-117); Bilirubin,Direct < 0.2 mg/dL (0.0-0.3); Bilirubin,Total 0.4 mg/dL (0.0-1.0); Blood Urea Nitrogen 11 mg/dl (8-23); Calcium 8.6 mg/dl (8.6-10.4); Carbon Dioxide 23 mmol/L (22-30); Chloride 101 mmol/L (96-108); Globulin 3.3 gm/dL (2.2-3.7); Glomerular Filtration Rate 54; Glucose 163 mg/dL (70-105); Lactate Dehydrogenase 204 U/L (94-250); Phosphorous 3.5 mg/dL (2.7-4.5); Triglycerides 95 mg/dl (<150); Uric Acid 5.7 mg/dL (2.5-8.0)
[2019-12-07] MEDS ORDERED: PNEUMOCOCCAL 23-VAL P-SAC VAC 0.5 ML SYRINGE IM ONE (10:00)
[2019-12-07] MEDS ORDERED: cefTRIAXone 2 GM VIAL ONE (10:42)
[2019-12-07] MEDS: PANTOPRAZOLE 40 MG TABLET PO SCH (11:21)
[2019-12-07] MEDS: DOCUSATE SODIUM 100 MG CAPSULE PO SCH ×2 (11:22→21:36)
[2019-12-07] MEDS: cefTRIAXone 2 GM in DEXTROSE 5% IN WATER 50 ML IV SCH (11:26)
[2019-12-07] MEDS: VANCOMYCIN 1,000 MG in 0.9 % SODIUM CHLORIDE 250 ML IV SCH ×2 (11:30→21:35)
[2019-12-07] MEDS: MUPIROCIN OINT 2% 22GM NARES SCH ×2 (11:30→21:35)
[2019-12-07] MEDS: busPIRone 5 MG TABLET PO SCH ×2 (15:51→21:36)
[2019-12-07] MEDS: DULoxetine 30 MG CAPSULE PO SCH ×2 (15:51→21:36)
[2019-12-07] MEDS: MIRTAZAPINE 15 MG TABLET PO SCH ×2 (15:59→21:36)
--- NOTE | 2019-12-07 16:19 | General Surgery Progress Note ---
SUBJECTIVE Subjective Patient information: Note initiated : 12/07/19 at 4:14 pm Service Date, if different from initiated Date: [] Patient: Jennifer Gama 79 y/o F admitted on 12/06/19 for Explant Abdominal Wall Mesh Graft With Primary. Chief Complaint: [] Principal diagnosis: abdominal wall mesh graft infection Interval history: patient is doing well. She has a small amount of bloody drainage but has no other complaints. She has less abdominal discomfort. White blood count 7.9, hemoglobin 11.7, hematocrit 35.6, potassium 4.4, BUN 11, creatinine 1. Constitutional Vitals: Vital Signs Temp Pulse Resp BP Pulse Ox 99.9 F H 89 26 H 179/79 94 12/07/19 15:55 12/07/19 15:55 12/07/19 15:55 12/07/19 15:55 12/07/19 15:55 Period Temp Pulse Resp BP Sys/Knapp Pulse Ox Last 24 Hr 98.2 F-100 F 79-91 17-26 128-179/61-108 18-99 Intake and Output 12/07/19 12/07/19 12/07/19 05:59 13:59 21:59 Intake Total 625 2441 1040 Output Total 1275 1600 1100 Balance -650 841 -60 Weight 208 lb Patient Weight 12/08/19 05:59 Weight 208 lb Intake & Output: Intake & Output 12/07/19 12/07/19 12/07/19 05:59 13:59 21:59 Intake Total 625 2441 1040 Output Total 1275 1600 1100 Balance -650 841 -60 Weight 208 lb Intake: IV 250 1191 Sodium Chloride 0.9% 1,000 ml @ 941 75 mls/hr IV .[id number] GARD[place] Rx#: [id number] Vancomycin 1,000 mg In Sodium 250 250 Chloride 0.9% 250 ml @ 250 mls/ hr IV Q12H [place] Rx#:[id number] Oral 375 1250 1040 Output: Urine Catheter Amount 1275 1600 1100 Other: Meal Lunch Percent of Meal Consumed 100% Feeding Ability Independent Urine Appearance Clear Clear Clear Uretheral (Buchanan) Clear Urine Color Bright Yellow Bright Yellow Bright Yellow Uretheral (Buchanan) Bright Yellow Urine Odor Normal Head Head exam: Present atraumatic, normal inspection and normocephalic Eye Eye exam: Present EOMI Pupils: Present normal accommodation and PERRL ENT ENT exam: Present mucous membranes moist, normal exam and normal oropharynx Neck Neck exam: Present full ROM and normal inspection; Absent lymphadenopathy, tenderness and thyromegaly Respiratory Respiratory exam: Present normal respiratory exam and CTAB; Absent rales, rh onchi and wheezes Cardiovascular Cardiovascular exam: Present normal rate and rhythm, RRR, +S1 and +S2 GI/Abdominal GI/Abdominal exam: Present normal bowel sounds and rebound; Absent distended, guarding and mass Extremities Exam Extremities exam: Present full ROM and neurovascular intact; Absent pedal edema and tenderness Back Exam Back exam: Present full ROM and normal inspection; Absent rash noted and tenderness Neurological Exam Neurological exam: Present alert, CN II-XII intact, normal gait, oriented X3 and reflexes normal; Absent motor sensory deficit Psychiatric Psychiatric exam: Present agitated, anxious, depressed and flat affect Skin Skin exam: Present intact; Absent erythema and rash A/P Assessment and plan (1) Cellulitis of abdominal wall: Status: Acute (2) Abdominal wall abscess: Status: Acute (3) Incisional hernia: Status: Resolved Qualifiers: Obstruction and gangrene presence: without obstruction or gangrene Qualified Code(s): K43.2 - Incisional hernia without obstruction or gangrene; K43.91 - Incisional hernia, without obstruction or gangrene Narrative A/P Narrative: patient is clinically stable. Her wound looks good. We'll continue on antibiotics pending culture results. Hopefully I can close the wound primarily during this hospitalization. Time Spent With Patient Time: Total time spent is greater than 50% in coordination of care (as documented) at patient's floor/unit and/or counseling patient:
[2019-12-07] MEDS: SENNOSIDES 1 TABLET PO SCH (21:37)
[2019-12-07] MEDS: traZODone HCL 50 MG TABLET PO PRN (21:42)
[2019-12-08] MEDS: 0.9 % SODIUM CHLORIDE 10 ML SYRINGE IV SCH ×3 (04:28→21:14)
[2019-12-08 06:58] LABS: Basophils # (Auto) 0.03 K/mcL (0.00-0.30); Basophils % (Auto) 0.6 % (0.0-2.0); Eosinophils # (Auto) 0.32 K/mcL (0.00-0.70); Eosinophils % (Auto) 6.1 % (0.0-7.0); Granulocytes % (Auto) 59.5 % (38.0-78.0); Hematocrit 36.4 % (34.1-44.9); Hemoglobin 11.7 g/dL (11.2-15.7); Lymphocytes # (Auto) 1.34 K/mcL (1.50-4.80); Lymphocytes % (Auto) 25.6 % (15.5-49.0); Mean Cell Volume 90.8 fL (80.0-100.0); Mean Corpuscular HGB Conc 32.1 g/dL (31.0-36.0); Mean Platelet Volume 9.9 fL (7.4-10.4); Monocytes # (Auto) 0.43 K/mcL (0.10-0.90); Monocytes % (Auto) 8.2 % (1.0-12.0); Platelet Count 314 K/mcL (140-440); RBC 4.01 M/mcL (3.59-5.38); Red Cell Distribution Width 14.7 % (11.5-14.5); WBC 5.2 K/mcL (4.50-11.00)
[2019-12-08 07:15] LABS: ALT/SGPT 26 U/l (0-40); AST/SGOT 32 U/l (0-37); Albumin/Globulin Ratio 0.8 (1.0-2.3); Alkaline Phosphatase 257 U/L (39-117); Bilirubin,Direct < 0.2 mg/dL (0.0-0.3); Bilirubin,Total 0.3 mg/dL (0.0-1.0); Blood Urea Nitrogen 9 mg/dl (8-23); Calcium 8.8 mg/dl (8.6-10.4); Carbon Dioxide 21 mmol/L (22-30); Chloride 106 mmol/L (96-108); Globulin 3.6 gm/dL (2.2-3.7); Glomerular Filtration Rate 61; Glucose 110 mg/dL (70-105); Lactate Dehydrogenase 173 U/L (94-250); Phosphorous 3.5 mg/dL (2.7-4.5); Triglycerides 98 mg/dl (<150); Uric Acid 5.6 mg/dL (2.5-8.0)
[2019-12-08] MEDS: LEVOTHYROXINE 50 MCG TABLET PO SCH (08:04)
[2019-12-08] MEDS: PANTOPRAZOLE 40 MG TABLET PO SCH (08:04)
[2019-12-08] MEDS: cefTRIAXone 2 GM in DEXTROSE 5% IN WATER 50 ML IV SCH (08:08)
[2019-12-08] MEDS: ALBUTEROL SULFATE 200 PUFF INHALER INH PRN (08:18)
[2019-12-08] MEDS: DOCUSATE SODIUM 100 MG CAPSULE PO SCH ×2 (09:37→21:12)
[2019-12-08] MEDS: DULoxetine 30 MG CAPSULE PO SCH ×2 (09:37→21:12)
[2019-12-08] MEDS: busPIRone 5 MG TABLET PO SCH ×2 (09:37→21:13)
[2019-12-08] MEDS: ALPRAZolam 0.5 MG TABLET PO SCH (09:38)
[2019-12-08] MEDS: VANCOMYCIN 1,000 MG in 0.9 % SODIUM CHLORIDE 250 ML IV SCH ×2 (09:39→21:14)
[2019-12-08] MEDS: MUPIROCIN OINT 2% 22GM NARES SCH ×2 (13:00→21:13)
[2019-12-08] MEDS: 0.9 % SODIUM CHLORIDE 1,000 ML IV SCH (14:36)
--- NOTE | 2019-12-08 14:38 | General Surgery Progress Note ---
SUBJECTIVE Subjective Patient information: Note initiated : 12/08/19 at 2:33 pm Service Date, if different from initiated Date: [] Patient: Jennifer Gama 79 y/o F admitted on 12/06/19 for Explant Abdominal Wall Mesh Graft With Primary. Chief Complaint: [] Principal diagnosis: abdominal wall mesh graft infection Interval history: patient continues to improve. She has some bloody drainage through her wound VAC. Her wound looks healthy. The size of the wound is justin nicely. Patient's pain is significantly improved. She is having regular bowel movements. White blood count 5.2, hemoglobin 11.7, hematocrit 3 6.4. Chemistry panel normal. Constitutional Vitals: Vital Signs Temp Pulse Resp BP Pulse Ox 97.5 F 78 18 139/78 94 12/08/19 11:51 12/08/19 11:51 12/08/19 11:51 12/08/19 11:51 12/08/19 11:51 Period Temp Pulse Resp BP Sys/Knapp Pulse Ox Last 24 Hr 97.1 F-99.9 F 78-90 12-26 129-179/72-79 92-96 Intake and Output 12/08/19 12/08/19 12/08/19 05:59 13:59 21:59 Intake Total 1150 1750 Output Total 3150 2450 Balance -2000 -700 Intake & Output: Intake & Output 12/08/19 12/08/19 12/08/19 05:59 13:59 21:59 Intake Total 1150 1750 Output Total 3150 2450 Balance -2000 -700 Intake: IV 250 300 Vancomycin 1,000 mg In Sodium 250 250 Chloride 0.9% 250 ml @ 250 mls/ hr IV Q12H [place] Rx#:[id number] Rocephin 2 gm In Dextrose 5% in 50 Water 50 ml @ 100 mls/hr IV DAILY G[place]IA Rx#:[id number] Oral 900 1450 Output: Urine Catheter Amount 3150 2450 Other: Urine Appearance Clear Clear Uretheral (Buchanan) Clear Urine Color Bright Yellow Pale Uretheral (Buchanan) Bright Yellow Urine Odor Normal Stool Size Moderate Stool Color Brown Stool Consistency Loose # Bowel Movements 1 Head Head exam: Present atraumatic, normal inspection and normocephalic Eye Eye exam: Present EOMI Pupils: Present normal accommodation and PERRL ENT ENT exam: Present mucous membranes moist, normal exam and normal oropharynx Neck Neck exam: Present full ROM and normal inspection; Absent lymphadenopathy, tenderness and thyromegaly Respiratory Respiratory exam: Present normal respiratory exam and CTAB; Absent rales, rhonchi and wheezes Cardiovascular Cardiovascular exam: Present normal rate and rhythm, RRR, +S1 and +S2 GI/Abdominal GI/Abdominal exam: Present normal bowel sounds, rebound and tenderness; Absent distended, guarding and mass Additional comments: operative site looks good with healthy tissue and no swelling. Extremities Exam Extremities exam: Present full ROM and neurovascular intact; Absent pedal edema and tenderness Back Exam Back exam: Present full ROM and normal inspection; Absent rash noted and tenderness Psychiatric Psychiatric exam: Present agitated, anxious, depressed and flat affect Skin Skin exam: Present intact; Absent erythema and rash A/P Assessment and plan (1) Cellulitis of abdominal wall: Status: Acute (2) Incisional hernia: Status: Resolved Qualifiers: Obstruction and gangrene presence: without obstruction or gangrene Qualified Code(s): K43.2 - Incisional hernia without obstruction or gangrene; K43.91 - Incisional hernia, without obstruction or gangrene (3) COPD (chronic obstructive pulmonary disease): Status: Chronic Qualifiers: COPD type: unspecified COPD Qualified Code(s): J44.9 - Chronic obstructive pulmonary disease, unspecified (4) Major depressive disorder, recurrent episode, moderate with anxious distress: Status: Chronic (5) Sleep apnea: Status: Chronic Qualifiers: Sleep apnea type: unspecified type Qualified Code(s): G47.30 - Sleep apnea, unspecified Narrative A/P Narrative: patient continued to heal uneventfully. We'll schedule for wound VAC change tomorrow. Time Spent With Patient Time: Total time spent is greater than 50% in coordination of care (as documented) at patient's floor/unit and/or counseling patient:
[2019-12-08] MEDS: SENNOSIDES 1 TABLET PO SCH (21:12)
[2019-12-08] MEDS: MIRTAZAPINE 15 MG TABLET PO SCH (21:13)
[2019-12-08] MEDS: traZODone HCL 50 MG TABLET PO PRN (21:19)
[2019-12-09] MEDS: 0.9 % SODIUM CHLORIDE 1,000 ML IV SCH ×3 (02:19→19:50)
[2019-12-09] MEDS: 0.9 % SODIUM CHLORIDE 10 ML SYRINGE IV SCH ×3 (04:05→20:43)
[2019-12-09 06:46] LABS: Basophils # (Auto) 0.02 K/mcL (0.00-0.30); Basophils % (Auto) 0.4 % (0.0-2.0); Eosinophils # (Auto) 0.43 K/mcL (0.00-0.70); Granulocytes % (Auto) 62.7 % (38.0-78.0); Hematocrit 33.8 % (34.1-44.9); Hemoglobin 11.6 g/dL (11.2-15.7); Lymphocytes # (Auto) 1.22 K/mcL (1.50-4.80); Lymphocytes % (Auto) 22.6 % (15.5-49.0); Mean Cell Volume 89.9 fL (80.0-100.0); Mean Corpuscular HGB Conc 34.3 g/dL (31.0-36.0); Mean Platelet Volume 9.6 fL (7.4-10.4); Monocytes # (Auto) 0.34 K/mcL (0.10-0.90); Monocytes % (Auto) 6.3 % (1.0-12.0); Platelet Count 328 K/mcL (140-440); RBC 3.76 M/mcL (3.59-5.38); Red Cell Distribution Width 14.6 % (11.5-14.5); WBC 5.4 K/mcL (4.50-11.00)
[2019-12-09 07:42] LABS: ALT/SGPT 22 U/l (0-40); AST/SGOT 24 U/l (0-37); Albumin/Globulin Ratio 0.9 (1.0-2.3); Alkaline Phosphatase 223 U/L (39-117); Bilirubin,Direct < 0.2 mg/dL (0.0-0.3); Bilirubin,Total 0.2 mg/dL (0.0-1.0); Calcium 8.5 mg/dl (8.6-10.4); Carbon Dioxide 24 mmol/L (22-30); Chloride 104 mmol/L (96-108); Globulin 3.4 gm/dL (2.2-3.7); Glomerular Filtration Rate 61; Glucose 98 mg/dL (70-105); Lactate Dehydrogenase 165 U/L (94-250); Phosphorous 3.7 mg/dL (2.7-4.5); Triglycerides 106 mg/dl (<150); Uric Acid 5.3 mg/dL (2.5-8.0)
[2019-12-09 07:43] LABS: Blood Urea Nitrogen 6 mg/dl (8-23)
[2019-12-09] MEDS: DULoxetine 30 MG CAPSULE PO SCH ×2 (08:10→20:42)
[2019-12-09] MEDS: busPIRone 5 MG TABLET PO SCH ×2 (08:11→20:41)
[2019-12-09] MEDS: LEVOTHYROXINE 50 MCG TABLET PO SCH (08:11)
[2019-12-09] MEDS: DOCUSATE SODIUM 100 MG CAPSULE PO SCH ×2 (08:11→20:41)
[2019-12-09] MEDS: ALPRAZolam 0.5 MG TABLET PO SCH (08:12)
[2019-12-09] MEDS: PANTOPRAZOLE 40 MG TABLET PO SCH (08:12)
[2019-12-09] MEDS: MUPIROCIN OINT 2% 22GM NARES SCH ×2 (08:13→20:42)
[2019-12-09] MEDS: ALBUTEROL SULFATE 200 PUFF INHALER INH PRN (08:15)
[2019-12-09] MEDS: cefTRIAXone 2 GM in DEXTROSE 5% IN WATER 50 ML IV SCH (08:54)
[2019-12-09] MEDS: VANCOMYCIN 1,000 MG in 0.9 % SODIUM CHLORIDE 250 ML IV SCH ×2 (09:52→20:42)
--- NOTE | 2019-12-09 14:13 | General Surgery Progress Note ---
SUBJECTIVE Subjective Patient information: Note initiated : 12/09/19 at 2:09 pm Service Date, if different from initiated Date: [] Patient: Jennifer Gama 79 y/o F admitted on 12/06/19 for Explant Abdominal Wall Mesh Graft With Primary. Chief Complaint: [] Principal diagnosis: abdominal wall mesh graft infection Interval history: wound looks clean. The base of the incision is 100% granulating and there is no major drainage except for small amount of bloody fluid. Wound VAC dressing was changed without incident. Constitutional Vitals: Vital Signs Temp Pulse Resp BP Pulse Ox 98.1 F 87 20 146/87 95 12/09/19 12:00 12/09/19 12:00 12/09/19 12:00 12/09/19 12:00 12/09/19 12:00 Period Temp Pulse Resp BP Sys/Knapp Pulse Ox Last 24 Hr 97.7 F-98.7 F 80-87 16-20 140-168/72-87 94-96 Intake and Output 12/09/19 12/09/19 12/09/19 05:59 13:59 21:59 Intake Total 2040 1570 Output Total 2200 2550 Balance -160 -980 Intake & Output: Intake & Output 12/09/19 12/09/19 12/09/19 05:59 13:59 21:59 Intake Total 2040 1570 Output Total 2200 2550 Balance -160 -980 Intake: IV 1240 250 Sodium Chloride 0.9% 1,000 ml @ 990 75 mls/hr IV .[id number] [facility] Rx#: [id number] Vancomycin 1,000 mg In Sodium 250 250 Chloride 0.9% 250 ml @ 250 mls/ hr IV Q12H [facility] Rx#:[id number] Oral 800 1320 Output: Drainage 200 Medial Abdomen Woundvac 200 Urine Catheter Amount 1999 2550 Other: Meal Lunch Percent of Meal Consumed 100% Feeding Ability Independent Urine Appearance Clear Urine Color Pale Dark Yellow Urine Odor Normal Strong Neck Neck exam: Present full ROM and normal inspection; Absent lymphadenopathy, tenderness and thyromegaly Respiratory Respiratory exam: Present normal respiratory exam and CTAB; Absent rales, rhonchi and wheezes Cardiovascular Cardiovascular exam: Present normal rate and rhythm, RRR, +S1 and +S2 GI/Abdominal GI/Abdominal exam: Present normal bowel sounds, rebound and tenderness; Absent distended, guarding and mass Additional comments: operative site looks good with healthy tissue and no swelling. Extremities Exam Extremities exam: Present full ROM and neurovascular intact; Absent pedal edema and tenderness Back Exam Back exam: Present full ROM and normal inspection; Absent rash noted and tendern ess Psychiatric Psychiatric exam: Present anxious and normal affect; Absent depressed Skin Skin exam: Present intact; Absent erythema and rash A/P Assessment and plan (1) Cellulitis of abdominal wall: Status: Acute (2) Incisional hernia: Status: Resolved Qualifiers: Obstruction and gangrene presence: without obstruction or gangrene Qualified Code(s): K43.2 - Incisional hernia without obstruction or gangrene; K43.91 - Incisional hernia, without obstruction or gangrene (3) COPD (chronic obstructive pulmonary disease): Status: Chronic Qualifiers: COPD type: unspecified COPD Qualified Code(s): J44.9 - Chronic obstructive pulmonary disease, unspecified (4) Major depressive disorder, recurrent episode, moderate with anxious distress: Status: Chronic (5) Sleep apnea: Status: Chronic Qualifiers: Sleep apnea type: unspecified type Qualified Code(s): G47.30 - Sleep apnea, unspecified Narrative A/P Narrative: patient is going well we'll continue present therapy with plans for attempt at closure over drains on Wednesday. Time Spent With Patient Time: Total time spent is greater than 50% in coordination of care (as documented) at patient's floor/unit and/or counseling patient:
[2019-12-09] MEDS: traZODone HCL 50 MG TABLET PO PRN (20:41)
[2019-12-09] MEDS: MIRTAZAPINE 15 MG TABLET PO SCH (20:42)
[2019-12-09] MEDS: SENNOSIDES 1 TABLET PO SCH (20:42)
[2019-12-10] MEDS: 0.9 % SODIUM CHLORIDE 1,000 ML IV SCH ×2 (01:44→13:40)
[2019-12-10] MEDS: 0.9 % SODIUM CHLORIDE 10 ML SYRINGE IV SCH ×3 (04:52→20:44)
[2019-12-10 06:20] LABS: Basophils # (Auto) 0.02 K/mcL (0.00-0.30); Basophils % (Auto) 0.3 % (0.0-2.0); Eosinophils # (Auto) 0.41 K/mcL (0.00-0.70); Eosinophils % (Auto) 6.8 % (0.0-7.0); Granulocytes % (Auto) 65.2 % (38.0-78.0); Hematocrit 31.9 % (34.1-44.9); Lymphocytes # (Auto) 1.26 K/mcL (1.50-4.80); Lymphocytes % (Auto) 20.9 % (15.5-49.0); Mean Cell Volume 93.3 fL (80.0-100.0); Mean Corpuscular HGB Conc 34.5 g/dL (31.0-36.0); Mean Platelet Volume 9.5 fL (7.4-10.4); Monocytes # (Auto) 0.41 K/mcL (0.10-0.90); Monocytes % (Auto) 6.8 % (1.0-12.0); Platelet Count 312 K/mcL (140-440); RBC 3.42 M/mcL (3.59-5.38); Red Cell Distribution Width 14.6 % (11.5-14.5)
[2019-12-10 06:47] LABS: ALT/SGPT 17 U/l (0-40); AST/SGOT 19 U/l (0-37); Alkaline Phosphatase 191 U/L (39-117); Bilirubin,Direct < 0.2 mg/dL (0.0-0.3); Bilirubin,Total 0.2 mg/dL (0.0-1.0); Blood Urea Nitrogen 5 mg/dl (8-23); Calcium 8.5 mg/dl (8.6-10.4); Carbon Dioxide 24 mmol/L (22-30); Chloride 106 mmol/L (96-108); Globulin 2.9 gm/dL (2.2-3.7); Glomerular Filtration Rate 54; Glucose 98 mg/dL (70-105); Lactate Dehydrogenase 200 U/L (94-250); Phosphorous 3.7 mg/dL (2.7-4.5); Triglycerides 108 mg/dl (<150)
[2019-12-10] MEDS: LEVOTHYROXINE 50 MCG TABLET PO SCH (09:21)
[2019-12-10] MEDS: DULoxetine 30 MG CAPSULE PO SCH ×2 (09:22→20:43)
[2019-12-10] MEDS: PANTOPRAZOLE 40 MG TABLET PO SCH (09:22)
[2019-12-10] MEDS: DOCUSATE SODIUM 100 MG CAPSULE PO SCH ×2 (09:22→20:42)
[2019-12-10] MEDS: ALPRAZolam 0.5 MG TABLET PO SCH (09:23)
[2019-12-10] MEDS: busPIRone 5 MG TABLET PO SCH ×2 (09:23→20:43)
[2019-12-10] MEDS: cefTRIAXone 2 GM in DEXTROSE 5% IN WATER 50 ML IV SCH (09:25)
[2019-12-10] MEDS: MUPIROCIN OINT 2% 22GM NARES SCH ×2 (09:25→20:40)
[2019-12-10] MEDS: VANCOMYCIN 1,000 MG in 0.9 % SODIUM CHLORIDE 250 ML IV SCH ×2 (10:17→20:44)
--- NOTE | 2019-12-10 10:29 | General Surgery Progress Note ---
SUBJECTIVE Subjective Patient information: Note initiated : 12/10/19 at 10:26 am Service Date, if different from initiated Date: [] Patient: Jennifer Gama 79 y/o F admitted on 12/06/19 for Explant Abdominal Wall Mesh Graft With Primary. Chief Complaint: [] Principal diagnosis: abdominal wall mesh graft infection Interval history: patient feels better. She has tolerated diet without difficulty. She has had multiple bowel movements. White blood count 6, hemoglobin 11, hematocrit 31.9, potassium 4.1, BUN 5, creatinine 1 Constitutional Vitals: Vital Signs Temp Pulse Resp BP Pulse Ox 98.1 F 83 18 161/82 95 12/10/19 07:21 12/10/19 07:21 12/10/19 07:21 12/10/19 07:21 12/10/19 07:21 Period Temp Pulse Resp BP Sys/Knapp Pulse Ox Last 24 Hr 97.5 F-98.6 F 80-87 16-20 144-164/64-87 93-96 Intake and Output 12/09/19 12/10/19 12/10/19 21:59 05:59 13:59 Intake Total 2090 800 480 Output Total 760 338 2691 Balance 1190 -100 -1320 Weight 206 lb 5 oz Intake & Output: Intake & Output 12/09/19 12/10/19 12/10/19 21:59 05:59 13:59 Intake Total 2090 800 480 Output Total 273 862 8224 Balance 1190 -100 -1320 Weight 206 lb 5 oz Intake: IV 1250 Sodium Chloride 0.9% 1,000 ml @ 1000 75 mls/hr IV .[id number] [facility] Rx#: [id number] Vancomycin 1,000 mg In Sodium 250 Chloride 0.9% 250 ml @ 250 mls/ hr IV Q12H [facility] Rx#:[id number] Oral 840 800 480 Output: Urine Catheter Amount 200 Uretheral (Buchanan) 200 Void Amount 285 040 6536 Other: Meal Breakfast Percent of Meal Consumed 100% 100% Feeding Ability Independent Urine Appearance Clear Clear Clear Urine Color Bright Yellow Bright Yellow Pale Urine Odor Normal Normal Head Head exam: Present atraumatic, normal inspection and normocephalic Eye Eye exam: Present EOMI Pupils: Present normal accommodation and PERRL ENT ENT exam: Present mucous membranes moist, normal exam and normal oropharynx Neck Neck exam: Present full ROM and normal inspection; Absent lymphadenopathy, tenderness and thyromegaly Respiratory Respiratory exam: Present normal respiratory exam and CTAB; Absent rales, rhonchi and wheezes Cardiovascular Cardiovascular exam: Present normal rate and rhythm, RRR, +S1 and +S2 GI/Abdominal GI/Abdominal exam: Present normal bowel sounds, rebound and tenderness; Absent distended, guarding and mass Additional comments: operative site looks good with healthy tissue and no swelling. Extremities Exam Extremities exam: Present full ROM and neurovascular intact; Absent pedal edema and tenderness Back Exam Back exam: Present full ROM and normal inspection; Absent rash noted and tenderness Psychiatric Psychiatric exam: Present anxious and normal affect; Absent depressed Skin Skin exam: Present intact; Absent erythema and rash A/P Assessment and plan (1) Abdominal wall abscess: Status: Acute (2) Cellulitis of abdominal wall: Status: Acute (3) Incisional hernia: Status: Resolved Qualifiers: Obstruction and gangrene presence: without obstruction or gangrene Qualified Code(s): K43.2 - Incisional hernia without obstruction or gangrene; K43.91 - Incisional hernia, without obstruction or gangrene (4) Major depressive disorder, recurrent episode, moderate with anxious distress: Status: Chronic (5) Generalized anxiety disorder: Status: Chronic (6) COPD (chronic obstructive pulmonary disease): Status: Chronic Qualifiers: COPD type: unspecified COPD Qualified Code(s): J44.9 - Chronic obstructive pulmonary disease, unspecified Narrative A/P Narrative: continue on present therapy Saline lock IV Advanced to soft diet Time Spent With Patient Time: Total time spent is greater than 50% in coordination of care (as documented) at patient's floor/unit and/or counseling patient:
[2019-12-10] MEDS: ALBUTEROL SULFATE 200 PUFF INHALER INH PRN (13:48)
[2019-12-10] MEDS: traZODone HCL 50 MG TABLET PO PRN (20:43)
[2019-12-10] MEDS: SENNOSIDES 1 TABLET PO SCH (20:43)
[2019-12-10] MEDS: MIRTAZAPINE 15 MG TABLET PO SCH (20:43)
[2019-12-11] MEDS: 0.9 % SODIUM CHLORIDE 1,000 ML IV SCH (04:09)
[2019-12-11] MEDS: 0.9 % SODIUM CHLORIDE 10 ML SYRINGE IV SCH ×3 (06:42→21:38)
[2019-12-11 06:45] LABS: Basophils # (Auto) 0.03 K/mcL (0.00-0.30); Basophils % (Auto) 0.5 % (0.0-2.0); Eosinophils # (Auto) 0.41 K/mcL (0.00-0.70); Eosinophils % (Auto) 7.1 % (0.0-7.0); Granulocytes % (Auto) 64.8 % (38.0-78.0); Hematocrit 33.5 % (34.1-44.9); Hemoglobin 11.9 g/dL (11.2-15.7); Lymphocytes # (Auto) 1.25 K/mcL (1.50-4.80); Lymphocytes % (Auto) 21.6 % (15.5-49.0); Mean Cell Volume 90.5 fL (80.0-100.0); Mean Corpuscular HGB Conc 35.5 g/dL (31.0-36.0); Mean Platelet Volume 9.6 fL (7.4-10.4); Monocytes # (Auto) 0.35 K/mcL (0.10-0.90); Platelet Count 335 K/mcL (140-440); Red Cell Distribution Width 14.5 % (11.5-14.5); WBC 5.8 K/mcL (4.50-11.00)
[2019-12-11] MEDS: LEVOTHYROXINE 50 MCG TABLET PO SCH (07:03)
[2019-12-11] MEDS: PANTOPRAZOLE 40 MG TABLET PO SCH (07:04)
[2019-12-11 07:06] LABS: ALT/SGPT 17 U/l (0-40); AST/SGOT 22 U/l (0-37); Albumin 3.3 gm/dL (3.2-5.2); Alkaline Phosphatase 199 U/L (39-117); Bilirubin,Direct < 0.2 mg/dL (0.0-0.3); Bilirubin,Total 0.2 mg/dL (0.0-1.0); Carbon Dioxide 23 mmol/L (22-30); Chloride 107 mmol/L (96-108); Globulin 3.3 gm/dL (2.2-3.7); Glomerular Filtration Rate 48; Glucose 91 mg/dL (70-105); Lactate Dehydrogenase 221 U/L (94-250); Phosphorous 4.1 mg/dL (2.7-4.5); Triglycerides 153 mg/dl (<150); Uric Acid 5.7 mg/dL (2.5-8.0)
[2019-12-11 07:12] LABS: Blood Urea Nitrogen 7 mg/dl (8-23)
[2019-12-11] MEDS: cefTRIAXone 2 GM in DEXTROSE 5% IN WATER 50 ML IV SCH (09:38)
[2019-12-11] MEDS: ALPRAZolam 0.5 MG TABLET PO SCH (09:38)
[2019-12-11] MEDS: busPIRone 5 MG TABLET PO SCH ×2 (09:39→21:32)
[2019-12-11] MEDS: DOCUSATE SODIUM 100 MG CAPSULE PO SCH ×2 (09:39→21:32)
[2019-12-11] MEDS: DULoxetine 30 MG CAPSULE PO SCH ×2 (09:39→21:32)
[2019-12-11] MEDS: MUPIROCIN OINT 2% 22GM NARES SCH ×2 (09:41→21:34)
[2019-12-11] MEDS: VANCOMYCIN 1,500 MG in 0.9 % SODIUM CHLORIDE 500 ML IV SCH (10:24)
[2019-12-11] MEDS: VANCOMYCIN 1,000 MG in 0.9 % SODIUM CHLORIDE 250 ML IV SCH (10:49)
--- NOTE | 2019-12-11 13:57 | General Surgery Progress Note ---
SUBJECTIVE Subjective Patient information: Note initiated : 12/11/19 at 1:53 pm Service Date, if different from initiated Date: [] Patient: Jennifer Gama 79 y/o F admitted on 12/06/19 for Explant Abdominal Wall Mesh Graft With Primary. Chief Complaint: [] Principal diagnosis: abdominal wall mesh graft infection Interval history: patient continues to do well. She does not have any major discomfort. She is afebrile. She is having regular bowel movements and passing flatus. There is no major distention. Potassium 4.2, BUN 7, creatinine 1.1, white blood count 5.8, hemoglobin 11.9, hematocrit 33.5. Constitutional Vitals: Vital Signs Temp Pulse Resp BP Pulse Ox 98.7 F 84 18 162/82 97 12/11/19 12:00 12/11/19 12:00 12/11/19 12:00 12/11/19 12:00 12/11/19 12:00 Period Temp Pulse Resp BP Sys/Knapp Pulse Ox Last 24 Hr 97.7 F-98.9 F 84-103 16-18 152-176/73-87 93-97 Intake and Output 12/10/19 12/11/19 12/11/19 21:59 05:59 13:59 Intake Total 570 1850 1190 Output Total 1500 2150 1900 Balance -930 -300 -710 Weight 203 lb 9 oz Intake & Output: Intake & Output 12/10/19 12/11/19 12/11/19 21:59 05:59 13:59 Intake Total 570 1850 1190 Output Total 1500 2150 1900 Balance -930 -300 -710 Weight 203 lb 9 oz Intake: IV 250 1000 50 Sodium Chloride 0.9% 1,000 ml @ 1000 75 mls/hr IV .[id number] [facility] Rx#: [id number] Vancomycin 1,000 mg In Sodium 250 Chloride 0.9% 250 ml @ 250 mls/ hr IV Q12H [facility] Rx#:[id number] Rocephin 2 gm In Dextrose 5% in 50 Water 50 ml @ 100 mls/hr IV DAILY [facility] Rx#:[id number] Oral 281 259 9526 Output: Void Amount 1500 2150 1900 Other: Meal Dinner Breakfast Percent of Meal Consumed 100% 100% Urine Appearance Clear Clear Urine Color Pale Pale Pale Urine Odor Normal Normal Normal Head Head exam: Present atraumatic, normal inspection and normocephalic Eye Eye exam: Present EOMI Pupils: Present normal accommodation and PERRL ENT ENT exam: Present mucous membranes moist, normal exam and normal oropharynx Neck Neck exam: Present full ROM and normal inspection; Absent lymphadenopathy, tenderness and thyromegaly Respiratory Respiratory exam: Present normal respiratory exam and CTAB; Absent rales, rhonchi and wheezes Cardiovascular Cardiovascular exam: Present normal rate and rhythm, RRR, +S1 and +S2 GI/Abdominal GI/Abdominal exam: Present normal bowel sounds, rebound and tenderness; Absent distended, guarding and mass Additional comments: operative site looks good with healthy tissue and no swelling. Extremities Exam Extremities exam: Present full ROM and neurovascular intact; Absent pedal edema and tenderness Neurological Exam Neurological exam: Present alert, CN II-XII intact, normal gait, oriented X3 and reflexes normal; Absent motor sensory deficit Skin Skin exam: Present intact; Absent erythema and rash A/P Assessment and plan (1) Cellulitis of abdominal wall: Status: Acute (2) Abdominal wall abscess: Status: Acute (3) Incisional hernia: Status: Resolved Qualifiers: Obstruction and gangrene presence: without obstruction or gangrene Qualified Code(s): K43.2 - Incisional hernia without obstruction or gangrene; K43.91 - Incisional hernia, without obstruction or gangrene Narrative A/P Narrative: patient continues to improve. I will evaluate her wound tomorrow and make a decision as to whether or not to proceed with secondary closure over drains or to continue home treatment with wound VAC. Time Spent With Patient Time: Total time spent is greater than 50% in coordination of care (as documented) at patient's floor/unit and/or counseling patient:
[2019-12-11] MEDS: traZODone HCL 50 MG TABLET PO PRN (21:32)
[2019-12-11] MEDS: SENNOSIDES 1 TABLET PO SCH (21:32)
[2019-12-11] MEDS: MIRTAZAPINE 15 MG TABLET PO SCH (21:32)
[2019-12-12] MEDS: 0.9 % SODIUM CHLORIDE 10 ML SYRINGE IV SCH ×3 (05:22→21:04)
[2019-12-12] MEDS: PANTOPRAZOLE 40 MG TABLET PO SCH (07:14)
[2019-12-12] MEDS: LEVOTHYROXINE 50 MCG TABLET PO SCH (07:14)
[2019-12-12] MEDS ORDERED: cefTRIAXone 2 GM VIAL ONE (08:37)
[2019-12-12] MEDS: DULoxetine 30 MG CAPSULE PO SCH ×2 (08:47→21:03)
[2019-12-12] MEDS: ALPRAZolam 0.5 MG TABLET PO SCH (08:47)
[2019-12-12] MEDS: DOCUSATE SODIUM 100 MG CAPSULE PO SCH ×2 (08:48→21:04)
[2019-12-12] MEDS: busPIRone 5 MG TABLET PO SCH ×2 (08:49→21:04)
[2019-12-12] MEDS: cefTRIAXone 2 GM in DEXTROSE 5% IN WATER 50 ML IV SCH (08:52)
[2019-12-12] MEDS: ALBUTEROL SULFATE 200 PUFF INHALER INH PRN (08:54)
[2019-12-12] MEDS: VANCOMYCIN 1,500 MG in 0.9 % SODIUM CHLORIDE 500 ML IV SCH (09:39)
[2019-12-12] MEDS: HYDROcodone/APAP 10/325MG TABLET PO PRN (21:02)
[2019-12-12] MEDS: MIRTAZAPINE 15 MG TABLET PO SCH (21:03)
[2019-12-12] MEDS: SENNOSIDES 1 TABLET PO SCH (21:03)
[2019-12-12] MEDS: traZODone HCL 50 MG TABLET PO PRN (21:03)
[2019-12-13] MEDS: 0.9 % SODIUM CHLORIDE 10 ML SYRINGE IV SCH ×2 (06:09→14:29)
[2019-12-13] MEDS: LEVOTHYROXINE 50 MCG TABLET PO SCH (07:38)
[2019-12-13] MEDS: PANTOPRAZOLE 40 MG TABLET PO SCH (07:38)
[2019-12-13] MEDS ORDERED: cefTRIAXone 2 GM VIAL ONE (08:40)
[2019-12-13] MEDS: cefTRIAXone 2 GM in DEXTROSE 5% IN WATER 50 ML IV SCH (09:00)
[2019-12-13] MEDS: busPIRone 5 MG TABLET PO SCH (09:05)
[2019-12-13] MEDS: ALPRAZolam 0.5 MG TABLET PO SCH (09:05)
[2019-12-13] MEDS: DULoxetine 30 MG CAPSULE PO SCH (09:06)
[2019-12-13] MEDS: DOCUSATE SODIUM 100 MG CAPSULE PO SCH (09:06)
[2019-12-13] MEDS: HYDROcodone/APAP 10/325MG TABLET PO PRN (09:15)
[2019-12-13] MEDS: VANCOMYCIN 1,500 MG in 0.9 % SODIUM CHLORIDE 500 ML IV SCH (10:45)
--- NOTE | 2019-12-13 10:54 | Internal Medicine Consult Note ---
HPI Data of Consult Primary Care Provider: Shane Portillo Consult Narrative Chief complaint: Abdominal wound infection Reason for consult: Facilitate discharge due to lack of surgical service History of present illness: 79-year-old female admitted for infected mesh on 12/05 underwent explantation of mesh graft and debridement with wound VAC placement. Patient was managed on IV antibiotics include Rocephin and vancomycin. She was due for discharge today with wound VAC and outpatient antibiotics however due to lack of availability of surgical specialists at [facility] service was requested for the sole purpose to facilitate discharge in the absence of surgeon. At the time evaluation patient is alert and oriented. She denies active distress. She is aware of discharge plan on antibiotics. She has her at home. She would continue follow-up with surgery clinic as outpatient. At this time as per surgeon's recommendation patient will discharge on wound vacs in 2 weeks of antibiotics for MRSA wound infection confirmed on cultures. Surgeon expressed considering Zyvox however in light of multiple antidepressants including BuSpar/mirtazapine/duloxetine and trazodone Zyvox would be contraindicated. Surgeon recommends placement of PICC line and continuation of IV Rocephin and vancomycin for 2 weeks. cc:: CC: Lin Medrano MD 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) Panic disorder (Chronic) PE (pulmonary thromboembolism) (Chronic) Sleep apnea (Chronic) Surgical History History of cholecystectomy (Chronic) History of ear surgery (Chronic) left History of incisional hernia repair (Acute) 01/25/2019-Incisional hernia repair from xiphoid to pubis History of surgery (Chronic 2005) benign brain tumor removed History of tonsillectomy and adenoidectomy (Chronic) Family History Mother Congestive heart failure Arthritis Depression Father Diabetes mellitus Amputation leg, bilat Sister Heart attack Arthritis Social History marital status: occupational status: retired smoking status: Former smoker alcohol intake frequency: does not drink substance use type: does not use MEDS/ALLERGIES Home Medications and Allergies Home Medications Medication Instructions Recorded Confirmed Type aripiprazole 2 mg tablet 1 mg PO QHS #90 tab 10/04/18 12/06/19 Rx mirtazapine 15 mg PO QHS #30 tab 02/01/19 12/06/19 Rx levothyroxine 50 mcg tablet 50 mcg PO DAILY #90 tab 04/18/19 12/06/19 Rx albuterol sulfate 90 mcg/actuation 1 puff INHALATION Q6H PRN #18 g 07/03/19 12/06/19 Rx aerosol inhaler duloxetine 60 mg capsule,delayed 30 mg PO BID #180 cap 07/10/19 12/06/19 Rx release alprazolam 1 mg tablet 1 mg PO DAILY #90 tab 09/04/19 12/06/19 Rx buspirone 2.5 mg PO DAILY 12/04/19 12/06/19 History hydrocodone-acetaminophen 1 tab PO Q4H PRN #60 tab 12/13/19 Rx Allergies Allergy/AdvReac Type Severity Reaction Status Date / Time carbamazepine [From Tegretol] AdvReac Mild Itching Verified 12/04/19 11:07 morphine AdvReac Mild Hallucinati Verified 12/04/19 11:07 ng phenytoin [From Dilantin] AdvReac Mild Itching Verified 12/04/19 11:07 Sulfa (Sulfonamide AdvReac Mild Itching Verified 12/04/19 11:12 Antibiotics) EXAM Constitutional Vitals: Temp Pulse Resp BP Pulse Ox 97.0 F 90 18 160/88 97 12/13/19 08:00 12/13/19 08:00 12/13/19 08:00 12/13/19 08:00 12/13/19 08:00 DATA Data Completed and Pending Labs on day of discharge: Labs from last 24 hours 12/13/19 08:10 Vancomycin Trough 13.3 Preliminary micro results at discharge 12/06/19 16:38 Anaerobic Culture - Preliminary Abdomen - Not Given A/P Narrative A/P Narrative: * Abdominal wound/infected mesh-patient on antibiotic coverage including Rocephin/vancomycin. Patient will be discharging home per surgery recommendations on wound VAC/outpatient antibiotics. Hospitalist service was consulted to facilitate discharge in the absence of surgical service availability for this week. Patient is aware of the plan and will follow up with outpatient surgery clinic and wound VAC management/continue antibiotics. Plan is being secured. Patient will follow-up with infusion center for twice daily vancomycin and once daily Rocephin for duration of 14 days * Further discharge instructions will be as per surgeon. * Hospitalist service will be available for any and all help that may be required for discharge coordination/ transition out of hospital. Time Spent With Patient Time: Total time spent is greater than 50% in coordination of care (as documented) at patient's floor/unit and/or counseling patient: 55 minutes Total time spent with greater than 50% in coordination of care (as documented) at patient's floor/unit and/or counseling patient:: Greater than 35 minutes
--- NOTE | 2019-12-13 11:03 | Discharge Summary ---
Discharge Provider Provider Patient information: Note initiated : 12/13/19 at 10:56 am Service Date, if different from initiated Date: [] Patient: Jennifer Gama 79 y/o F admitted on 12/06/19 for Explant Abdominal Wall Mesh Graft With Primary. Chief Complaint: [] Date of admission: 12/06/19 10:59 Discharge date: 12/13/19 Primary care physician: Shane Portillo Admitting clinician: Lin Medrano Attending physician on admission: Lin Medrano Consults: 12/13/19 08:18 Consult to Physician [CONS] Routine Comment: Consulting Provider: Leonardo Barrera Reason For Exam: Physician to Consult Attending physician on discharge: Leonardo Holly Discharging clinician: Lin Medrano COURSE Hospital Course Hospital course: 79 y.o. female with infected mesh graft of abdominal wall. the graft was removed on 05 december and she has been on vancomycin IV and wound vac therapy . the wound is healing nicely and is clearing rapidly. she is clinacally stable for discharge home with plans for secondary closure next week. she will be followed in the office until her closure is completed. Discharge diagnosis: infected mesh graft of abdominal incision Secondary discharge diagnosis: MRSA INFECTION DEPRESSION WITH ANXIETY COPD SLEEP APNEA Time Spent with Patient Time attestation: Total time spent providing and/or coordinating discharge services: Physical Examination Vital Signs Vital signs: Temp Pulse Resp BP Pulse Ox 97.0 F 90 18 160/88 97 12/13/19 08:00 12/13/19 08:00 12/13/19 08:00 12/13/19 08:00 12/13/19 08:00 General physical appearance General physical exam: well developed, well nourished and no distress Abdomen Abdomen: Present soft and tender (MILD TENDERNESS OF ABDOMINAL WALL AROUND INCISION. WOUND VAC IS IN PLACE) Neurologic Neurologic: Present normal coordination and normal sensation Psychiatric Psychiatric: Present oriented to time, oriented to person, oriented to place, speech is normal, memory intact and other Discharge Plan Patient/Caregiver Discharge Instructions Activity: increase activity as tolerated Diet: Regular Diet Activity Restrictions/Additional Instructions: Patient to follow up for wound vac dressing changes at Dr. Medrano's office. Changes are to be made Wednesday, Wednesday, Fridays. Arrange this appointment before discharge. Prescriptions: New hydrocodone-acetaminophen 10-325 mg Tablet 1 tab PO Q4H PRN (Reason: Pain) Qty: 60 RF: 0 Continued aripiprazole 2 mg tablet 1 mg PO QHS Qty: 90 RF: 3 levothyroxine 50 mcg tablet 50 mcg PO DAILY Qty: 90 RF: 3 albuterol sulfate 90 mcg/actuation HFA aerosol inhaler 1 puff INHALATION Q6H PRN (Reason: shortness of breath) Qty: 18 RF: 2 duloxetine 60 mg capsule,delayed release(DR/EC) 30 mg PO BID Qty: 180 RF: 1 alprazolam 1 mg tablet 1 mg PO DAILY Qty: 90 RF: 2 mirtazapine 30 mg tablet 15 mg PO QHS Qty: 30 RF: 5 buspirone 5 mg tablet 2.5 mg PO DAILY RF: 0 Follow Up Plan Follow up with: Lin Medrano MD [Physician] - Patient Disposition: Home, Self-Care Assessment: patient is clinically stable and much improved Plan of Treatment: CONTINUE WOUND VAC UNTIL EVALUATED IN OFFICE Prognosis: Good Rehab Potential: Good I certify that the patient requires SNF services: No Overall status at discharge: patient is progressing back to baseline Pending Pending Pending: Resuscitation Status Full Code Diet GI Soft/Transitional Start Sun Dec 09 1120 Hydrocodone Bitart/Acetaminophen ([place] 10/325mg) 1 tab PO Q4HP PRN; Protocol PRN Reason: Per Pain Protocol Last Admin: 12/13/19 09:15 Dose: 1 tab Documented by: Admin: 12/12/19 21:02 Dose: 1 tab Documented by: VIPUL Albuterol Sulfate (Ventolin) 1 puff INH Q6HP PRN PRN Reason: shortness of breath Last Admin: 12/12/19 08:54 Dose: 1 puff Documented by: Admin: 12/10/19 13:48 Dose: 1 puff Documented by: Admin: 12/09/19 08:15 Dose: 1 puff Documented by: Admin: 12/08/19 08:18 Dose: 1 puff Documented by: HIMANSHU Alprazolam (Xanax) 1 mg PO DAILY [facility] Last Admin: 12/13/19 09:05 Dose: 1 mg Documented by: Admin: 12/12/19 08:47 Dose: 1 mg Documented by: Admin: 12/11/19 09:38 Dose: 1 mg Documented by: Admin: 12/10/19 09:23 Dose: 1 mg Documented by: Admin: 12/09/19 08:12 Dose: 1 mg Documented by: Admin: 12/08/19 09:38 Dose: 1 mg Documented by: HIMANSHU Buspirone HCl (Buspar) 2.5 mg PO BID [facility] Admin: 12/13/19 09:05 Dose: 2.5 mg Documented by: Admin: 12/12/19 21:04 Dose: 2.5 mg Documented by: Admin: 12/12/19 08:49 Dose: 2.5 mg Documented by: Admin: 12/11/19 21:32 Dose: 2.5 mg Documented by: Admin: 12/11/19 09:39 Dose: 2.5 mg Documented by: Admin: 12/10/19 20:43 Dose: 2.5 mg Documented by: MARIA A Admin: 12/10/19 09:23 Dose: 2.5 mg Documented by: Admin: 12/09/19 20:41 Dose: 2.5 mg Documented by: MARIA A Admin: 12/09/19 08:11 Dose: 2.5 mg Documented by: Admin: 12/08/19 21:13 Dose: 2.5 mg Documented by: Admin: 12/08/19 09:37 Dose: 2.5 mg Documented by: Admin: 12/07/19 21:36 Dose: Not Given Documented by: Admin: 12/07/19 15:51 Dose: 2.5 mg Documented by: MODESTO Docusate Sodium (Colace) 100 mg PO BID [facility] Admin: 12/13/19 09:06 Dose: 100 mg Documented by: Admin: 12/12/19 21:04 Dose: 100 mg Documented by: Admin: 12/12/19 08:48 Dose: 100 mg Documented by: Admin: 12/11/19 21:32 Dose: 100 mg Documented by: Admin: 12/11/19 09:39 Dose: 100 mg Documented by: Admin: 12/10/19 20:42 Dose: 100 mg Documented by: MARIA A Admin: 12/10/19 09:22 Dose: 100 mg Documented by: Admin: 12/09/19 20:41 Dose: 100 mg Documented by: MARIA A Admin: 12/09/19 08:11 Dose: 100 mg Documented by: Admin: 12/08/19 21:12 Dose: 100 mg Documented by: Admin: 12/08/19 09:37 Dose: 100 mg Documented by: Admin: 12/07/19 21:36 Dose: Not Given Documented by: Admin: 12/07/19 11:22 Dose: 100 mg Documented by: Admin: 12/06/19 21:36 Dose: 100 mg Documented by: VIPUL Duloxetine HCl (Cymbalta) 30 mg PO BID [facility] Admin: 12/13/19 09:06 Dose: 30 mg Documented by: Admin: 12/12/19 21:03 Dose: 30 mg Documented by: Admin: 12/12/19 08:47 Dose: 30 mg Documented by: Admin: 12/11/19 21:32 Dose: 30 mg Documented by: Admin: 12/11/19 09:39 Dose: 30 mg Documented by: Admin: 12/10/19 20:43 Dose: 30 mg Documented by: MARIA A Admin: 12/10/19 09:22 Dose: 30 mg Documented by: Admin: 12/09/19 20:42 Dose: 30 mg Documented by: MARIA A Admin: 12/09/19 08:10 Dose: 30 mg Documented by: Admin: 12/08/19 21:12 Dose: 30 mg Documented by: Admin: 12/08/19 09:37 Dose: 30 mg Documented by: Admin: 12/07/19 21:36 Dose: Not Given Documented by: Admin: 12/07/19 15:51 Dose: 30 mg Documented by: MODESTO Hydromorphone HCl (Dilaudid) 1 mg IV Q2HP PRN; Protocol PRN Reason: Per Pain Protocol Last Admin: 12/09/19 13:17 Dose: 1 mg Documented by: ALE Ceftriaxone Sodium 2 gm/ (Dextrose) 50 mls @ 100 mls/hr IV DAILY [facility] Last Infusion: 12/13/19 09:43 Dose: 0 mls/hr Documented by: Admin: 12/13/19 09:00 Dose: 100 mls/hr Documented by: Infusion: 12/12/19 09:22 Dose: 100 mls/hr Documented by: Admin: 12/12/19 08:52 Dose: 100 mls/hr Documented by: Infusion: 12/11/19 10:48 Dose: 100 mls/hr Documented by: Admin: 12/11/19 09:38 Dose: 100 mls/hr Documented by: Infusion: 12/10/19 09:55 Dose: 0 mls/hr Documented by: Admin: 12/10/19 09:25 Dose: 100 mls/hr Documented by: Infusion: 12/09/19 09:24 Dose: 0 mls/hr Documented by: Admin: 12/09/19 08:54 Dose: 100 mls/hr Documented by: Infusion: 12/08/19 08:40 Dose: 0 mls/hr Documented by: Admin: 12/08/19 08:08 Dose: 100 mls/hr Documented by: Infusion: 12/07/19 11:56 Dose: 100 mls/hr Documented by: Admin: 12/07/19 11:26 Dose: 100 mls/hr Documented by: MODESTO Vancomycin HCl 1,500 mg/ (Sodium Chloride) 500 mls @ 333.3 mls/hr IV Q24H [facility] Last Admin: 12/13/19 10:45 Dose: 333.3 mls/hr Documented by: Infusion: 12/12/19 11:10 Dose: 333.3 mls/hr Documented by: Admin: 12/12/19 09:39 Dose: 333.3 mls/hr Documented by: Infusion: 12/11/19 11:55 Dose: 333.3 mls/hr Documented by: Admin: 12/11/19 10:24 Dose: 333.3 mls/hr Documented by: HEIDI Levothyroxine Sodium (Synthroid) 50 mcg PO ACB [facility] Last Admin: 12/13/19 07:38 Dose: 50 mcg Documented by: Admin: 12/12/19 07:14 Dose: 50 mcg Documented by: Admin: 12/11/19 07:03 Dose: 50 mcg Documented by: Admin: 12/10/19 09:21 Dose: 50 mcg Documented by: Admin: 12/09/19 08:11 Dose: 50 mcg Documented by: Admin: 12/08/19 08:04 Dose: 50 mcg Documented by: HIMANSHU Mirtazapine (Remeron) 15 mg PO [facility] Last Admin: 12/12/19 21:03 Dose: 15 mg Documented by: Admin: 12/11/19 21:32 Dose: 15 mg Documented by: Admin: 12/10/19 20:43 Dose: 15 mg Documented by: MARIA A Admin: 12/09/19 20:42 Dose: 15 mg Documented by: MARIA A Admin: 12/08/19 21:13 Dose: 15 mg Documented by: Admin: 12/07/19 21:36 Dose: Not Given Documented by: Admin: 12/07/19 15:59 Dose: 15 mg Documented by: MODESTO Morphine Sulfate (Morphine) 4 mg IV Q4HP PRN; Protocol PRN Reason: Per Pain Protocol Last Admin: 12/11/19 21:33 Dose: 4 mg Documented by: Admin: 12/07/19 04:38 Dose: 4 mg Documented by: VIPUL [facility]op[facility]) [facility] Last Admin: 12/13/19 07:38 Dose: 40 mg Documented by: Admin: 12/12/19 07:14 Dose: 40 mg Documented by: Admin: 12/11/19 07:04 Dose: 40 mg Documented by: Admin: 12/10/19 09:22 Dose: 40 mg Documented by: Admin: 12/09/19 08:12 Dose: 40 mg Documented by: Admin: 12/08/19 08:04 Dose: 40 mg Documented by: Admin: 12/07/19 11:21 Dose: 40 mg Documented by: MODESTO Aripiprazole 2 Mg (Tablet) 1 dose PO HS [facility] Last Admin: 12/12/19 21:04 Dose: Not Given Documented by: Admin: 12/11/19 21:40 Dose: Not Given Documented by: Admin: 12/10/19 20:44 Dose: Not Given Documented by: MARIA A Admin: 12/09/19 20:42 Dose: Not Given Documented by: MARIA A Admin: 12/08/19 21:15 Dose: Not Given Documented by: Admin: 12/07/19 21:37 Dose: Not Given Documented by: VIPUL Wallace (Senokot) 2 tab PO [facility] Admin: 12/12/19 21:03 Dose: 2 tab Documented by: Admin: 12/11/19 21:32 Dose: 2 tab Documented by: Admin: 12/10/19 20:43 Dose: 2 tab Documented by: MARIA A Admin: 12/09/19 20:42 Dose: 2 tab Documented by: MARIA A Admin: 12/08/19 21:12 Dose: 2 tab Documented by: Admin: 12/07/19 21:37 Dose: 2 tab Documented by: Admin: 12/06/19 21:36 Dose: 2 tab Documented by: VIPUL Sodium Chloride (Saline Flush) 10 ml IV Q8 [facility] Last Admin: 12/13/19 06:09 Dose: 10 ml Documented by: Admin: 12/12/19 21:04 Dose: 10 ml Documented by: Admin: 12/12/19 14:45 Dose: 10 ml Documented by: Admin: 12/12/19 05:22 Dose: 10 ml Documented by: Admin: 12/11/19 21:38 Dose: 10 ml Documented by: Admin: 12/11/19 17:24 Dose: 10 ml Documented by: Admin: 12/11/19 06:42 Dose: Not Given Documented by: MARIA A Admin: 12/10/19 20:44 Dose: Not Given Documented by: MARIA A Admin: 12/10/19 12:39 Dose: Not Given Documented by: Admin: 12/10/19 04:52 Dose: Not Given Documented by: MARIA A Admin: 12/09/19 20:43 Dose: Not Given Documented by: MARIA A Admin: 12/09/19 14:44 Dose: Not Given Documented by: Admin: 12/09/19 04:05 Dose: Not Given Documented by: Admin: 12/08/19 21:14 Dose: Not Given Documented by: Admin: 12/08/19 14:02 Dose: Not Given Documented by: Admin: 12/08/19 04:28 Dose: Not Given Documented by: Admin: 12/07/19 21:37 Dose: Not Given Documented by: Admin: 12/07/19 15:19 Dose: Not Given Documented by: Admin: 12/07/19 05:08 Dose: Not Given Documented by: Admin: 12/06/19 21:37 Dose: Not Given Documented by: VIPUL Trazodone HCl (Desyrel) 25 mg PO HSP PRN PRN Reason: Insomnia Last Admin: 12/12/19 21:03 Dose: 25 mg Documented by: Admin: 12/11/19 21:32 Dose: 25 mg Documented by: Admin: 12/10/19 20:43 Dose: 25 mg Documented by: MARIA A Admin: 12/09/19 20:41 Dose: 25 mg Documented by: MARIA A Admin: 12/08/19 21:19 Dose: 25 mg Documented by: Admin: 12/07/19 21:42 Dose: 25 mg Documented by: VIPUL Shift Summary 12/12/19 16:40 Shift Summary by Julio Gonzalez Patient extremely pleasant. Hasn't reported any pain nor discomfort. Bed linen changed. Patient to be NPO after midnight for possible surgical procedure. Initialized on 12/12/19 16:40 - END OF NOTE
[2019-12-13] MEDS ORDERED: PNEUMOCOCCAL 23-VAL P-SAC VAC 0.5 ML SYRINGE IM ONE (16:45)
[2019-12-13] MEDS ORDERED: 0.9 % SODIUM CHLORIDE 10 ML SYRINGE IV SCH (21:00)
--- NOTE | 2020-01-01 08:09 | Operative Note ---
DATE OF OPERATION: 12/06/2019 PREOPERATIVE DIAGNOSIS: Incisional hernia with mesh graft infection. POSTOPERATIVE DIAGNOSIS: Incisional hernia with mesh graft infection. PROCEDURE: Explantation of mesh graft with debridement and wound V.A.C. placement. SURGEON: Lin Medrano MD FINDINGS: An infection surrounding the mesh graft with separation of most of the mesh except for suture. There was intense inflammatory and infected reaction around the graft. DESCRIPTION OF PROCEDURE: Under general anesthesia, the patient's abdomen was prepped and draped in a sterile field. A time-out procedure was carried out as per protocol. A midline incision with a scar around the small area of exposed graft was excised. Incision was extended down to the graft proper. There was increased mucoid inflammatory tissue overlying the graft and the fascia was from the graft without much dissection. The graft was only held in place by the retaining sutures. The retaining sutures were all removed and the graft was explanted in its entirety without any residual graft being left. Copious irrigation of the bed of the graft which was the omentum was carried out. Superficial debridement of the inflammatory tissue was carried out using abrasive movements with 4 x 4 gauze. More irrigation was carried out. The defect was then covered with white foam as well as pozo foam. This was covered with the wound V.A.C. dressing entirely. A small incision was made in the midportion of this and the suction drain was then placed over this opening. The system was placed to suction and there was total seal with contraction of the foam. The patient tolerated the procedure well. She was awakened, transferred to a bed and taken to the postanesthetic care unit in satisfactory condition. LCS:cricket Job ID: [id number] Doc ID: [id number] Lin Medrano M.D.
== END 2019-12-13 17:05 | disposition home or self-care (01) | DRG 908 ==
LOC: MEDSUR 10:59
PROVIDERS: ADMIT Family Medicine Adult Medicine; ATTEND Family Medicine Adult Medicine

== ENCOUNTER 2019-12-22 09:00 | Inpatient (IN) ==
--- NOTE | 2019-12-22 08:45 | History and Physical Report ---
DATE OF ADMISSION: 12/22/2019 HISTORY OF PRESENT ILLNESS: The patient is a 79-year-old female who was admitted on for explant of an infected abdominal wall mesh graft. The graft was removed and the patient was treated in the hospital with IV vancomycin pending cultures. She also had wound V.A.C. therapy. She did fairly well and after about 5 days the wound was clearing up rapidly. She was discharged home and was scheduled to have followup in the office to determine when secondary closure could be undertaken. When seen in the office on 12/17, the wound was rapidly healing and it was felt that the patient needed to have urgent secondary closure before the intense inflammatory reaction prevented the underlying viscera from being from the abdominal wall. This would preclude closure. The patient has had a bilateral separation of components and at this time has enough laxity to have the wound pulled together. She is canceled for delayed closure of her wound on 12/11. 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 She also has a pulmonary embolus in the past and she has chronic obstructive sleep apnea. SURGICAL HISTORY: Cholecystectomy, left ear surgery, incisional hernia repair x3 with removal of infected mesh as noted above, and history of removal of a benign brain tumor in 2005. FAMILY HISTORY: Positive for congestive heart failure, acute arthritis, depression, diabetes mellitus and coronary artery disease. SOCIAL HISTORY: She is , retired, a former smoker. She does not drink and she does not use illegal drugs. MEDICATIONS: Albuterol sulfate q.6h p.r.n. Alprazolam 1 mg daily. Aripiprazole 1 mg at bedtime. Budesonide inhaler 2 mL inhaled b.i.d. BuSpar 2.5 mg b.i.d. Duloxetine 30 mg twice daily. Advair Diskus 1 inhalation twice daily. Perforomist 2 mL inhalation b.i.d. Levothyroxine 50 mcg daily. Mirtazapine 15 mg at bedtime. Zofran 4 mg q.i.d. p.r.n. Oxycodone 10 mg every 4 hours as needed. ALLERGIES: TEGRETOL, MORPHINE, DILANTIN. REVIEW OF SYSTEMS:s GENERAL: Positive for chronic body aches, fatigue, headache and malaise. HEENT: Eyes: No change in vision, no loss of vision. ENT: Decreased hearing, chronic headaches. CV: No chest pain, dyspnea on exertion, pedal edema or tachycardia. LUNGS: Negative for chest congestion, dyspnea on exertion or wheezing. GI: Chronic abdominal pain with bloating, change in bowel habits, early satiety, heartburn and nausea. GENITOURINARY: No symptoms or bladder outlet symptoms. MUSCULOSKELETAL: Diffuse arthralgias, back pain, muscle cramps and myalgia. NEUROLOGIC: Abnormal hearing, headache and weakness. PSYCHOLOGICAL: Anxiety, depression and mood swings. ENDOCRINE: No abnormality noted. HEMATOLOGIC: The patient is on chronic anticoagulation therapy but does not have easy bleeding, bruises or lymphadenopathy. With allergies, no lip or throat swelling, no tongue swelling, urticaria or wheezes. PHYSICAL EXAMINATION: VITAL SIGNS: Blood pressure 159/77, pulse 93, respirations 20, temperature 97.7, O2 sats 94% on room air. HEENT: Unremarkable. No abnormalities. NECK: Supple, without JVD, bruits, adenopathy or thyromegaly. CHEST: Clear to auscultation. No rales, rhonchi or wheezes. HEART: Regular rate and rhythm without murmur, gallop or rub. ABDOMEN: Mild tenderness of the abdominal wall around the incision. There is complete granulation of the wound base without major drainage. EXTREMITIES: No cyanosis, clubbing, or edema. NEUROLOGIC: No focal motor, sensory or cerebellar deficit. PSYCHIATRIC: oriented to person, place and time without any memory changes. IMPRESSION: 1. 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 2. Methicillin-resistant Staphylococcus aureus infection. 3. Depression with anxiety. 4. Chronic obstructive lung disease. 5. Chronic obstructive sleep apnea. PLAN: The patient is admitted through outpatient for delayed secondary closure of her abdominal wall. She will be covered with antibiotics for 2 weeks in the perioperative period. LCS:cricket Job ID: [id number] Doc ID: [id number] Lin Medrano M.D.
[~2019-12-22 09:00] MED LIST changes: -IPRATROPIUM/ALBUTEROL 3 ML AMPUL.NEB NEB PRN; +cefTRIAXone 2 GM in DEXTROSE 5% IN WATER 50 ML IV SCH
[2019-12-22] MEDS ORDERED: GLYCOPYRROLATE 0.2 MG/ML VIAL IV ONE (12:53)
[2019-12-22] MEDS ORDERED: MIDAZOLAM 2 MG/2 ML VIAL IV ONE (12:53)
[2019-12-22] MEDS ORDERED: ONDANSETRON 4 MG/2 ML VIAL IV ONE (12:53)
[2019-12-22] MEDS ORDERED: ESMOLOL 100 MG/10 ML VIAL IV ONE (12:53)
[2019-12-22] MEDS ORDERED: DEXAMETHASONE 10 MG/ML VIAL IV ONE (12:53)
[2019-12-22] MEDS ORDERED: ETOMIDATE 20 MG/10 ML VIAL IV ONE (12:53)
[2019-12-22] MEDS ORDERED: SUGAMMADEX SODIUM 200 MG/2 ML VIAL IV ONE (12:53)
[2019-12-22] MEDS ORDERED: KETAMINE 100 MG/ML ML IV ONE (12:53)
[2019-12-22] MEDS ORDERED: LIDOCAINE HCL/PF 100 MG/5 ML SYRINGE IV ONE (12:53)
[2019-12-22] MEDS ORDERED: ROCURONIUM 10 MG/ML ML IV ONE (12:53)
[2019-12-22] MEDS ORDERED: fentaNYL 100 MCG/2 ML VIAL IV ONE (12:53)
[2019-12-22] MEDS ORDERED: ACETAMINOPHEN 1,000 MG/100 ML BOTTLE IV ONE (13:40)
[2019-12-22] MEDS ORDERED: HYDROmorphone 0.5 MG/0.5 ML SYRINGE IV PRN (13:40)
[2019-12-22] MEDS ORDERED: ONDANSETRON 4 MG/2 ML VIAL IV PRN ×2 (13:40→14:11)
[2019-12-22] MEDS ORDERED: KETOROLAC 15 MG/ML VIAL IV PRN (13:40)
[2019-12-22] MEDS ORDERED: MEPERIDINE 25 MG/ML SYRINGE IV PRN (13:40)
[2019-12-22] MEDS ORDERED: METHOCARBAMOL 1,000 MG/10 ML VIAL IV PRN (13:40)
[2019-12-22] MEDS ORDERED: IPRATROPIUM/ALBUTEROL 3 ML AMPUL.NEB NEB PRN (13:40)
[2019-12-22] MEDS ORDERED: fentaNYL 100 MCG/2 ML VIAL IV PRN (13:40)
[2019-12-22] MEDS ORDERED: LACTATED RINGERS 1,000 ML IV SCH (13:45)
--- NOTE | 2019-12-22 14:07 | Brief Operative Note ---
Brief Operative Note Date of procedure: 12/22/19 Pre-op diagnosis: abdominal wall infection Post-op diagnosis: other (abdominal wall infection) Procedure: delayed secondary closure of abdominal wall ;full thickness 11.5cm,skin, muscle and fascia Grafts/Implants: No (#10 lukasz drain) Anesthesia: GETA Findings: well granulated base without evidence of infection Complications: none Surgeon: Lin Medrano Estimated blood loss (cc): 25 Specimens Removed/Pathology: none sent Condition: stable Disposition: PACU
[2019-12-22] MEDS ORDERED: 0.9 % SODIUM CHLORIDE 1,000 ML IV SCH (14:15)
[2019-12-22] MEDS: METOPROLOL TARTRATE 5 MG/5 ML VIAL IV SCH ×3 (14:21→16:43)
[2019-12-22] MEDS ORDERED: VANCOMYCIN PER PHARMACY IV SCH (14:30)
[2019-12-22] MEDS ORDERED: HYDROmorphone 1 MG/ML SYRINGE IV PRN (16:22)
[2019-12-22] MEDS: oxyCODONE HCL 5 MG TABLET PO PRN ×2 (17:08→21:02)
[2019-12-22] MEDS: DOCUSATE SODIUM 100 MG CAPSULE PO SCH (20:55)
[2019-12-22] MEDS: SENNOSIDES 1 TABLET PO SCH (20:55)
[2019-12-22] MEDS: 0.9 % SODIUM CHLORIDE 10 ML SYRINGE IV SCH (20:56)
[2019-12-23] MEDS: oxyCODONE HCL 5 MG TABLET PO PRN ×4 (01:46→20:21)
[2019-12-23] MEDS: 0.9 % SODIUM CHLORIDE 10 ML SYRINGE IV SCH ×3 (05:53→20:24)
[2019-12-23 06:11] LABS: Basophils # (Auto) 0.02 K/mcL (0.00-0.30); Basophils % (Auto) 0.3 % (0.0-2.0); Eosinophils # (Auto) 0 K/mcL (0.00-0.70); Eosinophils % (Auto) 0 % (0.0-7.0); Granulocytes % (Auto) 79.4 % (38.0-78.0); Hematocrit 32.6 % (34.1-44.9); Hemoglobin 10.9 g/dL (11.2-15.7); Lymphocytes # (Auto) 1.07 K/mcL (1.50-4.80); Lymphocytes % (Auto) 15.4 % (15.5-49.0); Mean Cell Volume 94.2 fL (80.0-100.0); Mean Corpuscular HGB Conc 33.4 g/dL (31.0-36.0); Mean Platelet Volume 9.6 fL (7.4-10.4); Monocytes # (Auto) 0.34 K/mcL (0.10-0.90); Monocytes % (Auto) 4.9 % (1.0-12.0); Platelet Count 315 K/mcL (140-440); RBC 3.46 M/mcL (3.59-5.38); Red Cell Distribution Width 14.3 % (11.5-14.5); WBC 6.9 K/mcL (4.50-11.00)
[2019-12-23 06:31] LABS: ALT/SGPT 37 U/l (0-40); AST/SGOT 36 U/l (0-37); Albumin 3.3 gm/dL (3.2-5.2); Alkaline Phosphatase 265 U/L (39-117); Bilirubin,Direct < 0.2 mg/dL (0.0-0.3); Bilirubin,Total 0.2 mg/dL (0.0-1.0); Calcium 8.6 mg/dl (8.6-10.4); Carbon Dioxide 22 mmol/L (22-30); Chloride 104 mmol/L (96-108); Globulin 3.4 gm/dL (2.2-3.7); Glomerular Filtration Rate 54; Glucose 134 mg/dL (70-105); Lactate Dehydrogenase 205 U/L (94-250); Phosphorous 3.6 mg/dL (2.7-4.5); Triglycerides 101 mg/dl (<150)
[2019-12-23 06:34] LABS: Blood Urea Nitrogen 17 mg/dl (8-23)
[2019-12-23] MEDS: cefTRIAXone 2 GM in DEXTROSE 5% IN WATER 50 ML IV SCH (08:06)
[2019-12-23] MEDS: DOCUSATE SODIUM 100 MG CAPSULE PO SCH ×2 (08:10→19:59)
[2019-12-23] MEDS: PANTOPRAZOLE 40 MG TABLET PO SCH (08:11)
[2019-12-23] MEDS: VANCOMYCIN 1,500 MG in 0.9 % SODIUM CHLORIDE 500 ML IV SCH (09:34)
--- NOTE | 2019-12-23 12:37 | General Surgery Progress Note ---
SUBJECTIVE Subjective Patient information: Note initiated : 12/23/19 at 12:33 pm Service Date, if different from initiated Date: [] Patient: Jennifre Gama 79 y/o F admitted on 12/22/19 for Secondary Closure of Abdominal Wall. Chief Complaint: [] Principal diagnosis: cellulitis of abdominal wall; delayed secondary closure Interval history: patient is doing well. She has a small amount of bloody leak and her DAYNE. Her dressing was reapplied and the leak ceased. Inpatient panel is normal. White blood count 6.9, hemoglobin 10.9, hematocrit 32.6. Her pain is well controlled. Constitutional Vitals: Vital Signs Temp Pulse Resp BP Pulse Ox 97.8 F 75 18 163/80 93 12/23/19 06:52 12/23/19 06:52 12/23/19 06:52 12/23/19 06:52 12/23/19 06:52 Period Temp Pulse Resp BP Sys/Knapp Pulse Ox Last 24 Hr 97.4 F-98.3 F 69-90 11-20 126-205/73-101 86-100 Intake and Output 12/22/19 12/23/19 12/23/19 21:59 05:59 13:59 Intake Total 710 240 50 Output Total 925 703 1969 Balance 60 -310 -1155 Weight 204 lb Intake & Output: Intake & Output 12/22/19 12/23/19 12/23/19 21:59 05:59 13:59 Intake Total 710 240 50 Output Total 751 902 5166 Balance 60 -310 -1155 Weight 204 lb Intake: IV 50 50 Rocephin 2 gm In Dextrose 5% in 50 50 Water 50 ml @ 100 mls/hr IV DAILY [facility] Rx#:[id number] Oral 660 240 Output: Drainage 50 5 Left Lower Abdomen 50 5 Void Amount 142 [id number] [id number] Other: Feeding Ability Independent Urine Appearance Clear Urine Color Bright Yellow Pale Urine Odor Normal Head Head exam: Present atraumatic, normal inspection and normocephalic Eye Eye exam: Present EOMI Pupils: Present normal accommodation and PERRL ENT ENT exam: Present mucous membranes moist, normal exam and normal oropharynx Neck Neck exam: Present full ROM and normal inspection; Absent lymphadenopathy, tenderness and thyromegaly Respiratory Respiratory exam: Present normal respiratory exam and CTAB; Absent rales, rhonchi and wheezes Cardiovascular Cardiovascular exam: Present normal rate and rhythm, RRR, +S1 and +S2 GI/Abdominal GI/Abdominal exam: Present tenderness (mild incisional tenderness; incision looks good; good active bowel sounds) Extremities Exam Extremities exam: Present full ROM and neurovascular intact; Absent pedal edema and tenderness Neurological Exam Neurological exam: Present alert, CN II-XII intact, normal gait, oriented X3 and reflexes normal; Absent motor sensory deficit Psychiatric Psychiatric exam: Present anxious and normal affect; Absent depressed Skin Skin exam: Present intact; Absent erythema and rash A/P Assessment and plan (1) Cellulitis of abdominal wall: Status: Acute (2) Abdominal wall abscess: Status: Acute (3) Incisional hernia: Status: Resolved Qualifiers: Obstruction and gangrene presence: without obstruction or gangrene Qualified Code(s): K43.2 - Incisional hernia without obstruction or gangrene; K43.91 - Incisional hernia, without obstruction or gangrene (4) COPD (chronic obstructive pulmonary disease): Status: Chronic Qualifiers: COPD type: unspecified COPD Qualified Code(s): J44.9 - Chronic obstructive pulmonary disease, unspecified (5) Major depressive disorder, recurrent episode, moderate with anxious distress: Status: Chronic Narrative A/P Narrative: patient is doing well and her incision looks good. We'll continue on IV antibiotics. Time Spent With Patient Time: Total time spent is greater than 50% in coordination of care (as documented) at patient's floor/unit and/or counseling patient:
[2019-12-23] MEDS ORDERED: ALPRAZolam 0.5 MG TABLET PO ONE (13:37)
[2019-12-23] MEDS: ALBUTEROL SULFATE 200 PUFF INHALER INH PRN (14:49)
[2019-12-23] MEDS: SENNOSIDES 1 TABLET PO SCH (20:00)
[2019-12-23] MEDS: MIRTAZAPINE 15 MG TABLET PO SCH (20:21)
[2019-12-23] MEDS: DULoxetine 30 MG CAPSULE PO SCH (20:22)
[2019-12-23] MEDS: FLUTICASONE/SALMETEROL 500/50 INHALER #14 INH SCH (20:23)
[2019-12-23] MEDS: traZODone HCL 50 MG TABLET PO PRN (20:23)
[2019-12-24] MEDS: oxyCODONE HCL 5 MG TABLET PO PRN ×4 (04:09→21:20)
[2019-12-24] MEDS ORDERED: 0.9 % SODIUM CHLORIDE 10 ML SYRINGE IV PRN (06:44)
[2019-12-24] MEDS: 0.9 % SODIUM CHLORIDE 10 ML SYRINGE IV SCH ×5 (06:46→21:29)
[2019-12-24] MEDS: LEVOTHYROXINE 50 MCG TABLET PO SCH (08:09)
[2019-12-24] MEDS: PANTOPRAZOLE 40 MG TABLET PO SCH (08:09)
[2019-12-24] MEDS ORDERED: busPIRone 5 MG TABLET PO SCH (09:00)
[2019-12-24] MEDS: cefTRIAXone 2 GM in DEXTROSE 5% IN WATER 50 ML IV SCH (09:58)
[2019-12-24] MEDS: ALBUTEROL SULFATE 200 PUFF INHALER INH PRN (09:58)
[2019-12-24] MEDS: VANCOMYCIN 1,500 MG in 0.9 % SODIUM CHLORIDE 500 ML IV SCH (09:58)
[2019-12-24] MEDS: DOCUSATE SODIUM 100 MG CAPSULE PO SCH ×2 (09:59→21:21)
[2019-12-24] MEDS: ALPRAZolam 0.5 MG TABLET PO SCH (09:59)
[2019-12-24] MEDS: DULoxetine 30 MG CAPSULE PO SCH ×2 (09:59→21:20)
[2019-12-24] MEDS: FLUTICASONE/SALMETEROL 500/50 INHALER #14 INH SCH ×2 (09:59→21:21)
[2019-12-24] MEDS ORDERED: ALTEPLASE 2 MG VIAL IV ONE (15:14)
--- NOTE | 2019-12-24 15:15 | General Surgery Progress Note ---
SUBJECTIVE Subjective Patient information: Note initiated : 12/24/19 at 3:11 pm Service Date, if different from initiated Date: [] Patient: Jennifer Gama 79 y/o F admitted on 12/22/19 for Secondary Closure of Abdominal Wall. Chief Complaint: [] Principal diagnosis: cellulitis of abdominal wall; delayed secondary closure Interval history: patient continues to do well. Her wound looks clean. The drainage is minimal and there is no leak. Discussed with her the need for continued IV antibiotics for at least 2 weeks. Constitutional Vitals: Vital Signs Temp Pulse Resp BP Pulse Ox 98.6 F 97 H 16 185/89 94 12/24/19 12:00 12/24/19 12:00 12/24/19 12:00 12/24/19 12:00 12/24/19 12:00 Period Temp Pulse Resp BP Sys/Knapp Pulse Ox Last 24 Hr 97.8 F-98.6 F 72-97 16-18 155-186/71-89 93-96 Intake and Output 12/24/19 12/24/19 12/24/19 05:59 13:59 21:59 Intake Total 800 1710 Output Total 1208 Balance -408 1710 Intake & Output: Intake & Output 12/24/19 12/24/19 12/24/19 05:59 13:59 21:59 Intake Total 800 1710 Output Total 1208 Balance -408 1710 Intake: IV 550 Vancomycin 1,500 mg In Sodium 500 Chloride 0.9% 500 ml @ 333.3 mls/hr IV DAILY [facility] Rx#: [id number] Rocephin 2 gm In Dextrose 5% in 50 Water 50 ml @ 100 mls/hr IV DAILY [facility] Rx#:[id number] Oral 800 1160 Output: Drainage 8 Left Lower Abdomen 8 Void Amount 1200 Other: Meal Lunch Percent of Meal Consumed 100% Feeding Ability Independent Urine Appearance Clear Clear Urine Color Bright Yellow Bright Yellow Urine Odor Normal Normal Stool Color Brown Stool Consistency Soft Formed Eye Eye exam: Present EOMI Pupils: Present normal accommodation and PERRL ENT ENT exam: Present mucous membranes moist, normal exam and normal oropharynx Respiratory Respiratory exam: Present normal respiratory exam and CTAB; Absent rales, rhonchi and wheezes Cardiovascular Cardiovascular exam: Present normal rate and rhythm, RRR, +S1 and +S2 GI/Abdominal GI/Abdominal exam: Present tenderness (mild incisional tenderness; incision looks good; good active bowel sounds) Extremities Exam Extremities exam: Present full ROM and neurovascular intact; Absent pedal edema and tenderness Neurological Exam Neurological exam: Present alert, CN II-XII intact, normal gait, oriented X3 and reflexes normal; Absent motor sensory deficit Psychiatric Psychiatric exam: Present anxious and normal affect; Absent depressed Skin Skin exam: Present intact; Absent erythema and rash A/P Assessment and plan (1) Cellulitis of abdominal wall: Status: Acute (2) Abdominal wall abscess: Status: Acute (3) Incisional hernia: Status: Resolved Qualifiers: Obstruction and gangrene presence: without obstruction or gangrene Qualified Code(s): K43.2 - Incisional hernia without obstruction or gangrene; K43.91 - Incisional hernia, without obstruction or gangrene (4) Major depressive disorder, recurrent episode, moderate with anxious distress: Status: Chronic Narrative A/P Narrative: continue present therapy Plan for discharge home tomorrow with continued daily vancomycin and Rocephin Time Spent With Patient Time: Total time spent is greater than 50% in coordination of care (as documented) at patient's floor/unit and/or counseling patient:
[2019-12-24] MEDS: busPIRone 5 MG TABLET PO SCH (19:27)
[2019-12-24] MEDS: traZODone HCL 50 MG TABLET PO PRN (21:20)
[2019-12-24] MEDS: MIRTAZAPINE 15 MG TABLET PO SCH (21:21)
[2019-12-24] MEDS: SENNOSIDES 1 TABLET PO SCH (21:29)
[2019-12-25] MEDS: oxyCODONE HCL 5 MG TABLET PO PRN ×2 (02:31→17:51)
[2019-12-25] MEDS: 0.9 % SODIUM CHLORIDE 10 ML SYRINGE IV SCH ×5 (05:05→21:00)
[2019-12-25 06:14] LABS: Basophils # (Auto) 0.06 K/mcL (0.00-0.30); Eosinophils # (Auto) 0.71 K/mcL (0.00-0.70); Eosinophils % (Auto) 12.1 % (0.0-7.0); Granulocytes % (Auto) 49.8 % (38.0-78.0); Hematocrit 31.7 % (34.1-44.9); Hemoglobin 10.5 g/dL (11.2-15.7); Lymphocytes # (Auto) 1.58 K/mcL (1.50-4.80); Mean Cell Volume 94.6 fL (80.0-100.0); Mean Corpuscular HGB Conc 33.1 g/dL (31.0-36.0); Mean Platelet Volume 10.1 fL (7.4-10.4); Monocytes # (Auto) 0.59 K/mcL (0.10-0.90); Monocytes % (Auto) 10.1 % (1.0-12.0); Platelet Count 317 K/mcL (140-440); RBC 3.35 M/mcL (3.59-5.38); Red Cell Distribution Width 14.5 % (11.5-14.5); WBC 5.9 K/mcL (4.50-11.00)
[2019-12-25] MEDS: LEVOTHYROXINE 50 MCG TABLET PO SCH (07:15)
[2019-12-25] MEDS: PANTOPRAZOLE 40 MG TABLET PO SCH (07:15)
[2019-12-25] MEDS: ALBUTEROL SULFATE 200 PUFF INHALER INH PRN ×2 (09:03→20:54)
[2019-12-25] MEDS: DOCUSATE SODIUM 100 MG CAPSULE PO SCH ×2 (09:03→20:52)
[2019-12-25] MEDS: DULoxetine 30 MG CAPSULE PO SCH ×2 (09:03→20:53)
[2019-12-25] MEDS: FLUTICASONE/SALMETEROL 500/50 INHALER #14 INH SCH ×2 (09:03→20:53)
[2019-12-25] MEDS: ALPRAZolam 0.5 MG TABLET PO SCH (09:03)
[2019-12-25] MEDS: cefTRIAXone 2 GM in DEXTROSE 5% IN WATER 50 ML IV SCH (09:04)
[2019-12-25] MEDS: busPIRone 5 MG TABLET PO SCH ×2 (09:04→20:52)
[2019-12-25] MEDS: VANCOMYCIN 1,500 MG in 0.9 % SODIUM CHLORIDE 500 ML IV SCH (09:04)
--- NOTE | 2019-12-25 19:03 | Discharge Summary ---
Discharge Provider Provider Patient information: Note initiated : 12/25/19 at 7:03 pm Service Date, if different from initiated Date: [] Patient: Jennifer Gama 79 y/o F admitted on 12/22/19 for Secondary Closure of Abdominal Wall. Chief Complaint: [] Date of admission: 12/22/19 15:21 Primary care physician: Shane Portillo COURSE Time Spent with Patient Time attestation: Total time spent providing and/or coordinating discharge services: Physical Examination Vital Signs Vital signs: Temp Pulse Resp BP Pulse Ox 98.4 F 90 18 151/85 94 12/25/19 15:47 12/25/19 15:47 12/25/19 15:47 12/25/19 15:47 12/25/19 15:47 Discharge Plan Patient/Caregiver Discharge Instructions Prescriptions: No Action aripiprazole 2 mg tablet 1 mg PO QHS Qty: 90 RF: 3 levothyroxine 50 mcg tablet 50 mcg PO DAILY Qty: 90 RF: 3 albuterol sulfate 90 mcg/actuation HFA aerosol inhaler 1 puff INHALATION Q6H PRN (Reason: shortness of breath) Qty: 18 RF: 2 duloxetine 60 mg capsule,delayed release(DR/EC) 30 mg PO BID Qty: 180 RF: 1 alprazolam 1 mg tablet 1 mg PO DAILY Qty: 90 RF: 2 mirtazapine 30 mg tablet 15 mg PO QHS Qty: 30 RF: 5 buspirone 5 mg tablet 2.5 mg PO DAILY RF: 0 hydrocodone-acetaminophen 10-325 mg Tablet 1 tab PO Q4H PRN (Reason: Pain) Qty: 60 RF: 0 Vancomycin Per Pharmacy 1 order IV UD 14 Days Qty: 28 RF: 0 vancomycin 1.5 gram recon soln 1.5 g IV Q12H Qty: 28 RF: 0 ceftriaxone 2 gram Recon Soln 2 gm IV DAILY Qty: 14 RF: 0 fluticasone propion-salmeterol [Advair Diskus] 500-50 mcg/dose blister with device 1 inh INHALATION BID RF: 0 Other Ambulatory Orders: Outpatient PICC Care (Daily) Location: None Selected Ordered By: Lin Medrano Follow Up Plan Follow up with: Lin Medrano MD [Physician] - 01/08/20 11:30 am Pending Pending Pending: Resuscitation Status Full Code Diet Regular Diet Start WedDec 21 1420 Albuterol Sulfate (Ventolin) 1 puff INH Q6HP PRN PRN Reason: Shortness Of Breath Last Admin: 12/25/19 09:03 Dose: 1 puff Documented by: Admin: 12/24/19 09:58 Dose: 1 puff Documented by: Admin: 12/23/19 14:49 Dose: 1 puff Documented by: WILTON Alprazolam (Xanax) 1 mg PO DAILY [facility] Last Admin: 12/25/19 09:03 Dose: 1 mg Documented by: Admin: 12/24/19 09:59 Dose: 1 mg Documented by: WILTON Buspirone HCl (Buspar) 2.5 mg PO BID@0900,1930 [facility] Admin: 12/25/19 09:04 Dose: 2.5 mg Documented by: Admin: 12/24/19 19:27 Dose: 2.5 mg Documented by: MADELINE Docusate Sodium (Colace) 100 mg PO BID [facility] Admin: 12/25/19 09:03 Dose: 100 mg Documented by: Admin: 12/24/19 21:21 Dose: Not Given Documented by: Admin: 12/24/19 09:59 Dose: 100 mg Documented by: Admin: 12/23/19 19:59 Dose: Not Given Documented by: Admin: 12/23/19 08:10 Dose: 100 mg Documented by: Admin: 12/22/19 20:55 Dose: 100 mg Documented by: MYRON Duloxetine HCl (Cymbalta) 30 mg PO BID [facility] Last Admin: 12/25/19 09:03 Dose: 30 mg Documented by: Admin: 12/24/19 21:20 Dose: 30 mg Documented by: Admin: 12/24/19 09:59 Dose: 30 mg Documented by: Admin: 12/23/19 20:22 Dose: 30 mg Documented by: MADELINE Heparin Sodium (Porcine) (Heparin 10 Units/Ml Flush) 2 ml IV Q12 [facility] Last Admin: 12/25/19 09:04 Dose: 2 ml Documented by: Admin: 12/24/19 21:21 Dose: 2 ml Documented by: Admin: 12/24/19 10:00 Dose: 2 ml Documented by: WILTON Sodium Chloride (Sodium Chloride 0.9%) 1,000 mls @ 0 mls/hr IV .Q0M [facility] Last Admin: 12/22/19 16:10 Dose: 30 mls/hr Documented by: SARAVANAN Ceftriaxone Sodium 2 gm/ (Dextrose) 50 mls @ 100 mls/hr IV DAILY [facility] Last Admin: 12/25/19 09:04 Dose: 100 mls/hr Documented by: Infusion: 12/24/19 10:28 Dose: 0 mls/hr Documented by: Admin: 12/24/19 09:58 Dose: 100 mls/hr Documented by: Infusion: 12/23/19 08:36 Dose: 0 mls/hr Documented by: Admin: 12/23/19 08:06 Dose: 100 mls/hr Documented by: CHUCHO Vancomycin HCl 1,500 mg/ (Sodium Chloride) 500 mls @ 333.3 mls/hr IV DAILY [facility] Last Admin: 12/25/19 09:04 Dose: 333 mls/hr Documented by: Infusion: 12/24/19 11:29 Dose: 0 mls/hr Documented by: Admin: 12/24/19 09:58 Dose: 333.3 mls/hr Documented by: Infusion: 12/23/19 11:05 Dose: 333.3 mls/hr Documented by: Admin: 12/23/19 09:34 Dose: 333.3 mls/hr Documented by: CHUCHO Levothyroxine Sodium (Synthroid) 50 mcg PO QAMAC [facility] Last Admin: 12/25/19 07:15 Dose: 50 mcg Documented by: Admin: 12/24/19 08:09 Dose: 50 mcg Documented by: WILTON Mirtazapine (Remeron) 15 mg PO HS [facility] Last Admin: 12/24/19 21:21 Dose: 15 mg Documented by: Admin: 12/23/19 20:21 Dose: 15 mg Documented by: MADELINE Oxycodone HCl (Roxicodone) 10 mg PO Q4HP PRN; Protocol PRN Reason: Per Pain Protocol Last Admin: 12/25/19 17:51 Dose: 10 mg Documented by: Admin: 12/25/19 02:31 Dose: 10 mg Documented by: Admin: 12/24/19 21:20 Dose: 10 mg Documented by: Admin: 12/24/19 16:08 Dose: 10 mg Documented by: Admin: 12/24/19 10:38 Dose: 10 mg Documented by: Admin: 12/24/19 04:09 Dose: 10 mg Documented by: Admin: 12/23/19 20:21 Dose: 10 mg Documented by: Admin: 12/23/19 12:17 Dose: 10 mg Documented by: Admin: 12/23/19 08:11 Dose: 10 mg Documented by: Admin: 12/23/19 01:46 Dose: 10 mg Documented by: Admin: 12/22/19 21:02 Dose: 10 mg Documented by: Admin: 12/22/19 17:08 Dose: 10 mg Documented by: [email or web address] Pantoprazole Sodium (Protonix) 40 mg PO QAMAC [facility] Last Admin: 12/25/19 07:15 Dose: 40 mg Documented by: Admin: 12/24/19 08:09 Dose: 40 mg Documented by: Admin: 12/23/19 08:11 Dose: 40 mg Documented by: CHUCHO Aripiprazole [ (Abilify] 2 Mg Tab) 0.5 dose PO QHS [facility] Last Admin: 12/24/19 21:22 Dose: Not Given Documented by: Admin: 12/23/19 20:23 Dose: Not Given Documented by: MADELINE Fluticasone/Salmeterol (Advair 500-50 Diskus) 1 puff INH BID [facility] Last Admin: 12/25/19 09:03 Dose: 1 puff Documented by: Admin: 12/24/19 21:21 Dose: 1 puff Documented by: Admin: 12/24/19 09:59 Dose: 1 puff Documented by: Admin: 12/23/19 20:23 Dose: 1 puff Documented by: MADELINE Senna (Senokot) 2 tab PO [facility] Last Admin: 12/24/19 21:29 Dose: Not Given Documented by: Admin: 12/23/19 20:00 Dose: Not Given Documented by: Admin: 12/22/19 20:55 Dose: 2 tab Documented by: MYRON Sodium Chloride (Saline Flush) 10 ml IV Q8 [facility] Last Admin: 12/25/19 17:15 Dose: Not Given Documented by: Admin: 12/25/19 05:05 Dose: 10 ml Documented by: Admin: 12/24/19 21:22 Dose: 10 ml Documented by: Admin: 12/24/19 13:25 Dose: 10 ml Documented by: Admin: 12/24/19 06:46 Dose: 10 ml Documented by: Admin: 12/23/19 20:24 Dose: 10 ml Documented by: Admin: 12/23/19 14:25 Dose: 10 ml Documented by: Admin: 12/23/19 05:53 Dose: Not Given Documented by: Admin: 12/22/19 20:56 Dose: Not Given Documented by: MYRON Sodium Chloride (Saline Flush) 10 ml IV Q12 [facility] Last Admin: 12/25/19 09:05 Dose: 10 ml Documented by: Admin: 12/24/19 21:29 Dose: 10 ml Documented by: Admin: 12/24/19 09:58 Dose: 10 ml Documented by: WILTON Trazodone HCl (Desyrel) 25 mg PO HSP PRN PRN Reason: Insomnia Last Admin: 12/24/19 21:20 Dose: 25 mg Documented by: Admin: 12/23/19 20:23 Dose: 25 mg Documented by: MADELINE Shift Summary 12/25/19 17:15 Shift Summary by Anastasia Quintana Addendum entered by Anastasia Quintana R.N. 12/25/19 17:48: Medicated x 1 for pain with Oxycodone x1. Educated patient on DAYNE drain management. Original Note: Patient A&Ox4, VSS except for HTN on RA. Patient wears 2L at night per report. Home CPAP at bedside. Up SBA to BR, voiding well. Midline incision dressing changed by Dr. Medrano 12/23/19, CDI. Patient had a BM 12/23 and is passing gas. DAYNE drain x1 to LLQ, minimal serosanguinous drainage. Ventolin given x1. Patient has reported pain but has denied any medication, stating she will inform me if the pain increases. 2L PICC to JORGE, now aspirating blood after Cathflo instilled yesterday. Home inhalers and pill box in pyxis. Patient supposed to discharge this evening.Will update at bedside. Initialized on 12/25/19 17:15 - END OF NOTE
--- NOTE | 2019-12-25 19:15 | Discharge Summary ---
Discharge Provider Provider Patient information: Note initiated : 12/25/19 at 7:04 pm Service Date, if different from initiated Date: [] Patient: Jennifer Gama 79 y/o F admitted on 12/22/19 for Secondary Closure of Abdominal Wall. Chief Complaint: [] Date of admission: 12/22/19 15:21 Discharge date: 12/26/19 Primary care physician: Shane Portillo Admitting clinician: Lin Medrano Attending physician on admission: Lin Medrano Attending physician on discharge: Lin Medrano Discharging clinician: Lin Medrano COURSE Hospital Course Hospital course: 79-year-old female who was readmitted for urgent secondary closure of an abdominal wall incision status post explantation of an infected abdominal wall mesh graft. The patient had been on IV vancomycin and was using wound VAC. When seen in the office on 17 of December the wound is healing rapidly and it was my impression that she needed to have urgent secondary closure before the end intense inflammatory reaction prevented the underlying viscera from B and from the abdominal wall. She was admitted through outpatient surgery and underwent delayed primary closure of her wound on the day of admission. She has done very well and her wound is clean. She has minimal drainage. She will continue on her previous dose of vancomycin until her wound is healed. 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 Secondary discharge diagnosis: methicillin-resistant Staphylococcus aureus infection Depression with anxiety Chronic obstructive lung disease Chronic obstructive sleep apnea Reason for admission: delayed primary closure of open abdominal wall incision Procedures: delayed secondary closure of abdominal wall Pertinent studies/significant findings: none Complications: none Time Spent with Patient Time attestation: Total time spent providing and/or coordinating discharge services: Physical Examination Vital Signs Vital signs: Temp Pulse Resp BP Pulse Ox 98.4 F 90 18 151/85 94 12/25/19 15:47 12/25/19 15:47 12/25/19 15:47 12/25/19 15:47 12/25/19 15:47 General physical appearance General physical exam: well developed, well nourished and no distress Eyes Eye exam: PERRL and normal ocular movement Head Head exam IM: Present atraumatic, normal inspection and normocephalic Neck Neck exam: no masses, no bruits, trachea midline, no lymphadenopathy and no venous distension Cardiovascular Cardiovascular exam IM: Present normal rate and rhythm Respiratory Respiratory exam: normal expansion, normal respiratory effort, clear to percussion and clear to auscultation Abdomen Abdomen: Present soft, tender, bowel sounds and organomegaly Integumentary Integumentary: Present no rash, no growths, no abnormal pigmentation and other Neurologic Neurologic: Present normal coordination and normal sensation Musculoskeletal Musculoskeletal: Present normal gait, normal posture and other Psychiatric Psychiatric: Present oriented to time, oriented to person, oriented to place and speech is normal Discharge Plan Patient/Caregiver Discharge Instructions Activity: increase activity as tolerated and resume usual activities as tolerated Diet: Regular Diet Prescriptions: Continued aripiprazole 2 mg tablet 1 mg PO QHS Qty: 90 RF: 3 levothyroxine 50 mcg tablet 50 mcg PO DAILY Qty: 90 RF: 3 albuterol sulfate 90 mcg/actuation HFA aerosol inhaler 1 puff INHALATION Q6H PRN (Reason: shortness of breath) Qty: 18 RF: 2 duloxetine 60 mg capsule,delayed release(DR/EC) 30 mg PO BID Qty: 180 RF: 1 alprazolam 1 mg tablet 1 mg PO DAILY Qty: 90 RF: 2 mirtazapine 30 mg tablet 15 mg PO QHS Qty: 30 RF: 5 buspirone 5 mg tablet 2.5 mg PO DAILY RF: 0 hydrocodone-acetaminophen 10-325 mg Tablet 1 tab PO Q4H PRN (Reason: Pain) Qty: 60 RF: 0 Vancomycin Per Pharmacy 1 order IV UD 14 Days Qty: 28 RF: 0 vancomycin 1.5 gram recon soln 1.5 g IV Q12H Qty: 28 RF: 0 ceftriaxone 2 gram Recon Soln 2 gm IV DAILY Qty: 14 RF: 0 fluticasone propion-salmeterol [Advair Diskus] 500-50 mcg/dose blister with device 1 inh INHALATION BID RF: 0 Other Ambulatory Orders: Outpatient PICC Care (Daily) Location: None Selected Ordered By: Lin Medrano Follow Up Plan Follow up with: Lin Medrano MD [Physician] - 01/01/20 11:30 am Patient Disposition: Home, Self-Care Prognosis: Good Rehab Potential: Good I certify that the patient requires SNF services: No Overall status at discharge: patient is progressing back to baseline Discharge Orders: Discharge Order (Routine); Ordered 12/25/19 Ordered By: Lin Medrano Pending Pending Pending: Resuscitation Status Full Code Diet Regular Diet Start WedDec 21 1420 Albuterol Sulfate (Ventolin) 1 puff INH Q6HP PRN PRN Reason: Shortness Of Breath Last Admin: 12/25/19 09:03 Dose: 1 puff Documented by: Admin: 12/24/19 09:58 Dose: 1 puff Documented by: Admin: 12/23/19 14:49 Dose: 1 puff Documented by: WILTON Alprazolam (Xanax) 1 mg PO DAILY [facility] Admin: 12/25/19 09:03 Dose: 1 mg Documented by: Admin: 12/24/19 09:59 Dose: 1 mg Documented by: WILTON Buspirone HCl (Buspar) 2.5 mg PO BID@0900,1930 [facility] Admin: 12/25/19 09:04 Dose: 2.5 mg Documented by: Admin: 12/24/19 19:27 Dose: 2.5 mg Documented by: MADELINE Docusate Sodium (Colace) 100 mg PO BID [facility] Admin: 12/25/19 09:03 Dose: 100 mg Documented by: Admin: 12/24/19 21:21 Dose: Not Given Documented by: Admin: 12/24/19 09:59 Dose: 100 mg Documented by: Admin: 12/23/19 19:59 Dose: Not Given Documented by: Admin: 12/23/19 08:10 Dose: 100 mg Documented by: Admin: 12/22/19 20:55 Dose: 100 mg Documented by: MYRON Duloxetine HCl (Cymbalta) 30 mg PO BID [facility] Admin: 12/25/19 09:03 Dose: 30 mg Documented by: Admin: 12/24/19 21:20 Dose: 30 mg Documented by: Admin: 12/24/19 09:59 Dose: 30 mg Documented by: Admin: 12/23/19 20:22 Dose: 30 mg Documented by: MADELINE Heparin Sodium (Porcine) (Heparin 10 Units/Ml Flush) 2 ml IV Q12 [facility] Last Admin: 12/25/19 09:04 Dose: 2 ml Documented by: Admin: 12/24/19 21:21 Dose: 2 ml Documented by: Admin: 12/24/19 10:00 Dose: 2 ml Documented by: WILTON Sodium Chloride (Sodium Chloride 0.9%) 1,000 mls @ 0 mls/hr IV .Q0M [facility] Last Admin: 12/22/19 16:10 Dose: 30 mls/hr Documented by: SARAVANAN Ceftriaxone Sodium 2 gm/ (Dextrose) 50 mls @ 100 mls/hr IV DAILY [facility] Last Admin: 12/25/19 09:04 Dose: 100 mls/hr Documented by: Infusion: 12/24/19 10:28 Dose: 0 mls/hr Documented by: Admin: 12/24/19 09:58 Dose: 100 mls/hr Documented by: Infusion: 12/23/19 08:36 Dose: 0 mls/hr Documented by: Admin: 12/23/19 08:06 Dose: 100 mls/hr Documented by: CHUCHO Vancomycin HCl 1,500 mg/ (Sodium Chloride) 500 mls @ 333.3 mls/hr IV DAILY [facility] Last Admin: 12/25/19 09:04 Dose: 333 mls/hr Documented by: Infusion: 12/24/19 11:29 Dose: 0 mls/hr Documented by: Admin: 12/24/19 09:58 Dose: 333.3 mls/hr Documented by: Infusion: 12/23/19 11:05 Dose: 333.3 mls/hr Documented by: Admin: 12/23/19 09:34 Dose: 333.3 mls/hr Documented by: CHUCHO Levothyroxine Sodium (Synthroid) 50 mcg PO QAMAC [facility] Last Admin: 12/25/19 07:15 Dose: 50 mcg Documented by: Admin: 12/24/19 08:09 Dose: 50 mcg Documented by: WILTON Mirtazapine (Remeron) 15 mg PO HS [facility] Last Admin: 12/24/19 21:21 Dose: 15 mg Documented by: Admin: 12/23/19 20:21 Dose: 15 mg Documented by: MADELINE Oxycodone HCl (Roxicodone) 10 mg PO Q4HP PRN; Protocol PRN Reason: Per Pain Protocol Last Admin: 12/25/19 17:51 Dose: 10 mg Documented by: Admin: 12/25/19 02:31 Dose: 10 mg Documented by: Admin: 12/24/19 21:20 Dose: 10 mg Documented by: Admin: 12/24/19 16:08 Dose: 10 mg Documented by: Admin: 12/24/19 10:38 Dose: 10 mg Documented by: Admin: 12/24/19 04:09 Dose: 10 mg Documented by: Admin: 12/23/19 20:21 Dose: 10 mg Documented by: Admin: 12/23/19 12:17 Dose: 10 mg Documented by: Admin: 12/23/19 08:11 Dose: 10 mg Documented by: Admin: 12/23/19 01:46 Dose: 10 mg Documented by: Admin: 12/22/19 21:02 Dose: 10 mg Documented by: Admin: 12/22/19 17:08 Dose: 10 mg Documented by: [email or web address] Pantoprazole Sodium (Protonix) 40 mg PO QAMAC [facility] Last Admin: 12/25/19 07:15 Dose: 40 mg Documented by: Admin: 12/24/19 08:09 Dose: 40 mg Documented by: Admin: 12/23/19 08:11 Dose: 40 mg Documented by: CHUCHO Aripiprazole [ (Abilify] 2 Mg Tab) 0.5 dose PO QHS [facility] Last Admin: 12/24/19 21:22 Dose: Not Given Documented by: Admin: 12/23/19 20:23 Dose: Not Given Documented by: MADELINE Fluticasone/Salmeterol (Advair 500-50 Diskus) 1 puff INH BID [facility] Last Admin: 12/25/19 09:03 Dose: 1 puff Documented by: Admin: 12/24/19 21:21 Dose: 1 puff Documented by: Admin: 12/24/19 09:59 Dose: 1 puff Documented by: Admin: 12/23/19 20:23 Dose: 1 puff Documented by: MADELINE Senna (Senokot) 2 tab PO HS [facility] Last Admin: 12/24/19 21:29 Dose: Not Given Documented by: Admin: 12/23/19 20:00 Dose: Not Given Documented by: Admin: 12/22/19 20:55 Dose: 2 tab Documented by: MYRON Sodium Chloride (Saline Flush) 10 ml IV Q8 [facility] Last Admin: 12/25/19 17:15 Dose: Not Given Documented by: Admin: 12/25/19 05:05 Dose: 10 ml Documented by: Admin: 12/24/19 21:22 Dose: 10 ml Documented by: Admin: 12/24/19 13:25 Dose: 10 ml Documented by: Admin: 12/24/19 06:46 Dose: 10 ml Documented by: Admin: 12/23/19 20:24 Dose: 10 ml Documented by: Admin: 12/23/19 14:25 Dose: 10 ml Documented by: Admin: 12/23/19 05:53 Dose: Not Given Documented by: Admin: 12/22/19 20:56 Dose: Not Given Documented by: MYRON Sodium Chloride (Saline Flush) 10 ml IV Q12 [facility] Last Admin: 12/25/19 09:05 Dose: 10 ml Documented by: Admin: 12/24/19 21:29 Dose: 10 ml Documented by: Admin: 12/24/19 09:58 Dose: 10 ml Documented by: WILTON Trazodone HCl (Desyrel) 25 mg PO HSP PRN PRN Reason: Insomnia Last Admin: 12/24/19 21:20 Dose: 25 mg Documented by: Admin: 12/23/19 20:23 Dose: 25 mg Documented by: MADELINE Shift Summary 12/25/19 17:15 Shift Summary by Anastasia Quintana Addendum entered by Anastasia Quintana R.N. 12/25/19 17:48: Medicated x 1 for pain with Oxycodone x1. Educated patient on DAYNE drain management. Original Note: Patient A&Ox4, VSS except for HTN on RA. Patient wears 2L at night per report. Home CPAP at bedside. Up SBA to BR, voiding well. Midline incision dressing changed by Dr. Medrano 12/23/19, CDI. Patient had a BM 12/23 and is passing gas. DAYNE drain x1 to LLQ, minimal serosanguinous drainage. Ventolin given x1. Patient has reported pain but has denied any medication, stating she will inform me if the pain increases. 2L PICC to JORGE, now aspirating blood after Cathflo instilled yesterday. Home inhalers and pill box in pyxis. Patient supposed to discharge this evening.Will update at bedside. Initialized on 12/25/19 17:15 - END OF NOTE
[2019-12-25] MEDS: SENNOSIDES 1 TABLET PO SCH (20:52)
[2019-12-25] MEDS: MIRTAZAPINE 15 MG TABLET PO SCH (20:53)
[2019-12-25] MEDS: traZODone HCL 50 MG TABLET PO PRN (20:58)
[2019-12-26] MEDS: oxyCODONE HCL 5 MG TABLET PO PRN ×2 (04:12→12:41)
[2019-12-26] MEDS: FLUTICASONE/SALMETEROL 500/50 INHALER #14 INH SCH (08:23)
[2019-12-26] MEDS: DOCUSATE SODIUM 100 MG CAPSULE PO SCH (08:23)
[2019-12-26] MEDS: ALBUTEROL SULFATE 200 PUFF INHALER INH PRN (08:23)
[2019-12-26] MEDS: ALPRAZolam 0.5 MG TABLET PO SCH (08:23)
[2019-12-26] MEDS: DULoxetine 30 MG CAPSULE PO SCH (08:23)
[2019-12-26] MEDS: VANCOMYCIN 1,500 MG in 0.9 % SODIUM CHLORIDE 500 ML IV SCH (08:24)
[2019-12-26] MEDS: LEVOTHYROXINE 50 MCG TABLET PO SCH (08:24)
[2019-12-26] MEDS: PANTOPRAZOLE 40 MG TABLET PO SCH (08:24)
[2019-12-26] MEDS: cefTRIAXone 2 GM in DEXTROSE 5% IN WATER 50 ML IV SCH (08:24)
[2019-12-26] MEDS: busPIRone 5 MG TABLET PO SCH (08:24)
[2019-12-26] MEDS: 0.9 % SODIUM CHLORIDE 10 ML SYRINGE IV SCH (08:25)
--- NOTE | 2020-01-01 11:02 | Operative Note ---
DATE OF OPERATION: 12/22/2019 PREOPERATIVE DIAGNOSIS: Abdominal wall infection. POSTOPERATIVE DIAGNOSIS: Abdominal wall infection. PROCEDURE: Delayed secondary closure of abdominal wall full-thickness including skin, muscle and fascia 11.5 cm. SURGEON: Lin Medrano M.D. FINDINGS: Well-granulated base without evidence of infection. DESCRIPTION OF PROCEDURE: Under general anesthesia, the patient's abdomen was prepped and draped in a sterile field. Using blunt dissection the skin, muscle, and fascia were from the underlying acute inflammatory tissues circumferentially for the full thickness of the incision. Irrigation was carried out. The full thickness of the incision was then closed in one layer, including skin, muscle, and fascia using interrupted #1 Prolene. These sutures were then tied over a #10 Earl drain which was placed at the base of the incision. Bolsters made out of red Phong-Natalya catheter were used to prevent acute compression on the skin. All of the sutures were tied, and there was no major tension on the sutures. Interrupted 2-0 Prolene was then used to close the skin between each of the bolsters. The bolsters were then supported with two folded gauze sponges to separate it from the underlying skin. Large Tegaderm dressing was placed. The patient tolerated the procedure well. She was awakened, transferred to a bed, and taken to the postanesthetic care unit in stable, satisfactory condition. LCS:hilda Job ID: [id number] Doc ID: [id number] Lin Medrano M.D.
== END 2019-12-26 12:55 | disposition home or self-care (01) | DRG 908 ==
LOC: SUR 09:00 → MEDSUR 15:21
PROVIDERS: ADMIT Family Medicine Adult Medicine; ATTEND Family Medicine Adult Medicine

== ENCOUNTER 2024-04-11 19:16 | Observation (INO) ==
[2024-04-11] MEDS: DEXAMETHASONE 10 MG/ML VIAL IV ONE (19:37)
[2024-04-11 20:03] LABS: Basophils # (Auto) 0 K/mcL (0.00-0.30); Basophils % (Auto) 0 % (0.0-2.0); Eosinophils # (Auto) 0 K/mcL (0.00-0.70); Eosinophils % (Auto) 0 % (0.0-7.0); Hematocrit 39.2 % (34.1-44.9); Hemoglobin 13.7 g/dL (11.2-15.7); Lymphocytes # (Auto) 0.29 K/mcL (1.50-4.80); Lymphocytes % (Auto) 2.1 % (15.5-49.0); Mean Cell Volume 89.7 fL (80.0-100.0); Mean Corpuscular HGB Conc 34.9 g/dL (31.0-36.0); Mean Platelet Volume 11.8 fL (8.8-12.5); Monocytes # (Auto) 0.51 K/mcL (0.10-0.90); Monocytes % (Auto) 3.7 % (1.0-12.0); Neutrophils % (Auto) 93.5 % (38.0-78.0); Platelet Count 132 K/mcL (140-440); RBC 4.37 M/mcL (3.59-5.38); Red Cell Distribution Width 14.5 % (11.5-14.5); WBC 13.8 K/mcL (4.5-11.0)
[2024-04-11 20:30] LABS: ALT/SGPT 38 U/L (<40); AST/SGOT 25 U/L (<32); Albumin 3.2 gm/dL (3.2-5.2); Albumin/Globulin Ratio 1.3 (1.0-2.3); Alkaline Phosphatase 153 U/L (39-117); Bilirubin,Total 0.5 mg/dL (0.1-1.0); Blood Urea Nitrogen 63 mg/dL (8-23); Calcium 8.3 mg/dL (8.6-10.4); Carbon Dioxide 21 mmol/L (22-30); Chloride 110 mmol/L (96-108); Globulin 2.4 gm/dL (2.2-3.7); Glomerular Filtration Rate 46; Glucose 136 mg/dL (70-105); Potassium 2.3 mmol/L (3.3-5.1); Sodium 145 mmol/L (133-145)
[2024-04-11] MEDS: POTASSIUM CHLORIDE 20 MEQ in DEXTROSE 5% IN WATER 250 ML IV ONE ×2 (20:49→23:40)
[2024-04-11 23:11] LABS: POC Calcium, Ionized 1.18 (1.16-1.32); POC Creatinine 1.4 (0.6-1.2); POC Potassium 2.2 (3.3-5.1)
[2024-04-11] MEDS: POTASSIUM CHLORIDE 20 MEQ PACKET PO ONE (23:40)
[2024-04-12 00:21] LABS: Blood Urea Nitrogen 64 mg/dL (8-23); Calcium 8.2 mg/dL (8.6-10.4); Carbon Dioxide 21 mmol/L (22-30); Chloride 112 mmol/L (96-108); Glomerular Filtration Rate 46; Glucose 184 mg/dL (70-105); Potassium 2.2 mmol/L (3.3-5.1); Sodium 145 mmol/L (133-145)
[2024-04-12] MEDS: CARVEDILOL 12.5 MG TABLET PO ONE (01:39)
[2024-04-12] MEDS: DEXAMETHASONE 4 MG TABLET PO ONE (01:40)
[2024-04-12] MEDS ORDERED: ONDANSETRON 4 MG/2 ML VIAL IV PRN (08:05)
[2024-04-12] MEDS ORDERED: POTASSIUM CHLORIDE 20 MEQ TABLET PO PRN (08:05)
[2024-04-12] MEDS ORDERED: POLYETHYLENE GLYCOL 3350 17 GM PACKET PO PRN (08:05)
[2024-04-12] MEDS ORDERED: METOCLOPRAMIDE 10 MG/2 ML VIAL IV PRN (08:05)
[2024-04-12] MEDS ORDERED: ACETAMINOPHEN 325 MG TABLET PO PRN (08:05)
[2024-04-12] MEDS ORDERED: IPRATROPIUM/ALBUTEROL 3 ML AMPUL.NEB NEB PRN (08:05)
[2024-04-12] MEDS ORDERED: MAGNESIUM SULFATE 2 GM/50 ML BAG IV PRN (08:05)
[2024-04-12 09:12] LABS: Thyroid Stimulating Hormone 0.27 uIU/mL (0.27-5.01)
[2024-04-12 09:19] LABS: ALT/SGPT 33 U/L (<40); AST/SGOT 27 U/L (<32); Albumin 2.8 gm/dL (3.2-5.2); Albumin/Globulin Ratio 1.2 (1.0-2.3); Alkaline Phosphatase 128 U/L (39-117); Bilirubin,Direct 0.2 mg/dL (<0.3); Bilirubin,Total 0.5 mg/dL (0.1-1.0); Blood Urea Nitrogen 60 mg/dL (8-23); Calcium 8.4 mg/dL (8.6-10.4); Carbon Dioxide 16 mmol/L (22-30); Chloride 113 mmol/L (96-108); Globulin 2.3 gm/dL (2.2-3.7); Glomerular Filtration Rate 59; Glucose 126 mg/dL (70-105); Lactate Dehydrogenase 327 U/L (135-225); Phosphorous 3.9 mg/dL (2.5-4.5); Potassium 2.6 mmol/L (3.3-5.1); Sodium 144 mmol/L (133-145); Triglycerides 133 mg/dL (<150); Uric Acid 8.9 mg/dL (2.5-8.0)
[2024-04-12] MEDS: POTASSIUM CHLORIDE 40 MEQ in DEXTROSE 5% IN WATER 500 ML IV ONE (09:20)
[2024-04-12] MEDS: POTASSIUM CHLORIDE 20 MEQ TABLET PO ONE (09:25)
[2024-04-12] MEDS: POTASSIUM CHLORIDE 10 MEQ/100 ML BAG IV SCH (09:27)
[2024-04-12] MEDS: ENOXAPARIN 40 MG/0.4 ML SYRINGE SQ SCH (09:27)
[2024-04-12] MEDS: SODIUM BICARBONATE 650 MG TABLET PO SCH (10:27)
[2024-04-12] MEDS: 0.9 % SODIUM CHLORIDE 10 ML SYRINGE IV SCH (15:37)
[2024-04-12 15:54] LABS: Blood Urea Nitrogen 64 mg/dL (8-23); Calcium 8.4 mg/dL (8.6-10.4); Carbon Dioxide 18 mmol/L (22-30); Chloride 112 mmol/L (96-108); Glomerular Filtration Rate 52; Glucose 177 mg/dL (70-105); Potassium 3.3 mmol/L (3.3-5.1); Sodium 144 mmol/L (133-145)
[2024-04-12] MEDS ORDERED: LOPERAMIDE 2 MG CAPSULE PO PRN (16:03)
[2024-04-12] MEDS: CARVEDILOL 12.5 MG TABLET PO SCH (18:03)
[2024-04-12] MEDS: MIRTAZAPINE 15 MG TABLET PO SCH (21:10)
[2024-04-12] MEDS: rOPINIRole 1 MG TABLET PO SCH (21:10)
[2024-04-12] MEDS: amLODIPine 10 MG TABLET PO ONE (21:10)
[2024-04-12] MEDS: busPIRone 5 MG TABLET PO SCH (21:10)
[2024-04-12] MEDS: ARIPIPRAZOLE 5 MG TABLET PO SCH (21:11)
[2024-04-12] MEDS: ALPRAZolam 0.5 MG TABLET PO SCH (21:11)
[2024-04-12] MEDS: hydrALAZINE 20 MG/ML VIAL IV PRN (21:20)
[2024-04-13] MEDS: ENALAPRILAT 1.25 MG/ML VIAL IV PRN (01:08)
[2024-04-13 06:56] LABS: ALT/SGPT 37 U/L (<40); AST/SGOT 25 U/L (<32); Albumin 2.6 gm/dL (3.2-5.2); Albumin/Globulin Ratio 1.4 (1.0-2.3); Alkaline Phosphatase 140 U/L (39-117); Bilirubin,Direct 0.2 mg/dL (<0.3); Bilirubin,Total 0.5 mg/dL (0.1-1.0); Blood Urea Nitrogen 68 mg/dL (8-23); Calcium 8.1 mg/dL (8.6-10.4); Carbon Dioxide 18 mmol/L (22-30); Chloride 114 mmol/L (96-108); Globulin 1.8 gm/dL (2.2-3.7); Glomerular Filtration Rate 52; Glucose 106 mg/dL (70-105); Lactate Dehydrogenase 269 U/L (135-225); Phosphorous 3.6 mg/dL (2.5-4.5); Potassium 2.9 mmol/L (3.3-5.1); Sodium 145 mmol/L (133-145); Triglycerides 133 mg/dL (<150); Uric Acid 9.1 mg/dL (2.5-8.0)
[2024-04-13] MEDS: POTASSIUM CHLORIDE 40 MEQ in DEXTROSE 5% IN WATER 500 ML IV PRN (09:01)
[2024-04-13] MEDS: CHOLESTYRAMINE/ASPARTAME 4 GM POWD.PACK PO SCH (09:05)
[2024-04-13] MEDS: SODIUM BICARBONATE 650 MG TABLET PO SCH (09:05)
[2024-04-13] MEDS: POTASSIUM CHLORIDE 20 MEQ TABLET PO PRN (09:05)
[2024-04-13] MEDS: DEXAMETHASONE 4 MG TABLET PO SCH (09:07)
[2024-04-13] MEDS: ATORVASTATIN 20 MG TABLET PO SCH (09:07)
[2024-04-13] MEDS: amLODIPine 10 MG TABLET PO SCH (09:07)
[2024-04-13] MEDS: FLUTICASONE FUROATE VILANTEROL INH SCH (09:07)
[2024-04-13 14:40] LABS: Potassium 3.7 mmol/L (3.3-5.1)
[2024-04-13] MEDS: POTASSIUM CHLORIDE 20 MEQ TABLET PO ONE (17:28)
[2024-04-13] MEDS: SPIRONOLACTONE 25 MG TABLET PO SCH (17:32)
[2024-04-14 06:31] LABS: ALT/SGPT 41 U/L (<40); AST/SGOT 25 U/L (<32); Albumin 2.7 gm/dL (3.2-5.2); Albumin/Globulin Ratio 1.2 (1.0-2.3); Alkaline Phosphatase 165 U/L (39-117); Bilirubin,Direct 0.3 mg/dL (<0.3); Bilirubin,Total 0.6 mg/dL (0.1-1.0); Blood Urea Nitrogen 72 mg/dL (8-23); Calcium 8.3 mg/dL (8.6-10.4); Carbon Dioxide 18 mmol/L (22-30); Chloride 117 mmol/L (96-108); Globulin 2.3 gm/dL (2.2-3.7); Glomerular Filtration Rate 46; Glucose 116 mg/dL (70-105); Lactate Dehydrogenase 309 U/L (135-225); Phosphorous 3.8 mg/dL (2.5-4.5); Potassium 3.9 mmol/L (3.3-5.1); Sodium 147 mmol/L (133-145); Triglycerides 134 mg/dL (<150); Uric Acid 8.9 mg/dL (2.5-8.0)
[2024-04-14] MEDS: DEXTROSE 5% IN WATER 500 ML IV ONE (08:06)
[2024-04-14] MEDS ORDERED: SPIRONOLACTONE 25 MG TABLET PO SCH (09:00)
[2024-04-14] MEDS: HYDROCHLOROTHIAZIDE 25 MG TABLET PO ONE (09:25)
[2024-04-14 13:18] LABS: Sodium 146 mmol/L (133-145)
== END 2024-04-14 14:44 | disposition home or self-care (01) ==
LOC: ED 19:16 → MEDSUR 19:16
PROVIDERS: ADMIT Internal Medicine; ATTEND Internal Medicine